=== PATIENT | female | born 1940 | race Caucasian/White ===

== ENCOUNTER 2017-03-24 09:34 | Inpatient (IN) | payer OTHER ==
--- NOTE | 2017-03-24 10:14 | PDOC ---
History of Present Illness - General Chief Complaint: Nausea/Vomiting Stated Complaint: VOMITING Past History - Past Medical History Allergies/Adverse Reactions: Allergies Allergy/AdvReac Type Severity Reaction Status Date / Time omeprazole magnesium AdvReac Intermediate Rash Verified 06/09/16 10:34 [From Prilosec] zinc AdvReac Unknown Rash Verified 03/24/17 09:47 Home Medications: Ambulatory Orders Furosemide [Lasix -] 40 mg PO BID 06/09/16 Naproxen [Naprosyn -] 500 mg PO BID 06/09/16 Simvastatin 20 mg PO DAILY 06/09/16 Acetaminophen W/ Codeine #3 [Tylenol # 3 -] 1 tab PO Q6H #120 tablet MDD 4 10/28 Silver Sulfadiazine [Silvadene] 1 applic TP DAILY 01/27/17 Anemia: No Asthma: No Cancer: Yes (COLON) Cardiac Disorders: No CVA: No COPD: No CHF: No Dementia: No Diabetes: No GI Disorders: No (H/O COLON CA) Disorders: No HTN: No Hypercholesterolemia: Yes Liver Disease: No Seizures: No Thyroid Disease: No - Surgical History Abdominal Surgery: Yes (COLECTOMY) Appendectomy: No Cardiac Surgery: No Cholecystectomy: Yes (06/01) Lung Surgery: No Neurologic Surgery: No Orthopedic Surgery: No - Psycho/Social/Smoking Cessation Hx Anxiety: No Suicidal Ideation: No Smoking History: Never smoked Have you smoked in the past 12 months: No Hx Alcohol Use: No Drug/Substance Use Hx: No Substance Use Type: None Hx Substance Use Treatment: No *Physical Exam - Vital Signs Last Vital Signs Temp Pulse Resp BP Pulse Ox 98.6 F 102 H 22 125/56 98 03/24/17 09:45 03/24/17 09:45 03/24/17 09:45 03/24/17 09:45 03/24/17 09:45
[2017-03-24] MEDS ORDERED: ONDANSETRON 4 MG/2 ML VIAL ONE ×2 (10:28→17:10)
[2017-03-24] MEDS ORDERED: ONDANSETRON 4 MG/2 ML VIAL IVPB ONE (10:31)
[2017-03-24 10:45] LABS: BASOPHIL 0.1 % (0-2.0); EOSINOPHIL 0.7 % (0-4.5); MCH 26.4 pg (25.7-33.7); MCHC 32.5 g/dl (32.0-36.0); MEAN CELL VOLUME 81.3 fl (80-96); MEAN PLT VOLUME 10.3 fl (7.5-11.1); NEUTROPHILS 93.2 % (42.8-82.8); PLATELET COUNT 158 K/MM3 (134-434); RDW 15.4 % (11.6-15.6)
--- NOTE | 2017-03-24 10:46 | PDOC ---
History of Present Illness - General History Source: Patient, Old Records Exam Limitations: No Limitations - History of Present Illness Initial Comments: 03/24/17 10:59 The patient is a 77 year old female with a significant past medical history of HLD, wound care, colon cancer. who presents to the emergency department today with nausea since last night. The patient notes that her primary medical doctor recently switched the times of day she takes her medications. The patient states that her nausea was worsened when taking an amulet to the hospital.The patient also reports associated constipation. Her last bowel movement was yesterday and she noticed some blood in her stool one week ago. Rapid response was called upon the patients arrival to the hospital at 9:31 after appearing pale, diaphoretic, and nauseous. On exam in ED patient complains of chills, shortness of breath, and foot pain burning in sensation. PCP: Dr. Healy [phone] PAST SURGICAL HISTORY: Cholecystectomy (06/01), Colectomy. <Dom Roberts - Last Filed: 03/24/17 15:11> <Bisi Steen - Last Filed: 03/24/17 18:26> - General Chief Complaint: Nausea/Vomiting Stated Complaint: VOMITING Past History <Dom Roberts - Last Filed: 03/24/17 15:11> - Past Medical History Anemia: No Asthma: No Cancer: Yes (COLON) Cardiac Disorders: No CVA: No COPD: No CHF: No Dementia: No Diabetes: No GI Disorders: No (H/O COLON CA) Disorders: No HTN: No Hypercholesterolemia: Yes Liver Disease: No Seizures: No Thyroid Disease: No - Surgical History Abdominal Surgery: Yes (COLECTOMY) Appendectomy: No Cardiac Surgery: No Cholecystectomy: Yes (06/01) Lung Surgery: No Neurologic Surgery: No Orthopedic Surgery: No - Psycho/Social/Smoking Cessation Hx Anxiety: No Suicidal Ideation: No Smoking History: Never smoked Have you smoked in the past 12 months: No Hx Alcohol Use: No Drug/Substance Use Hx: No Substance Use Type: None Hx Substance Use Treatment: No <Bisi Steen - Last Filed: 03/24/17 18:26> - Past Medical History Allergies/Adverse Reactions: Allergies Allergy/AdvReac Type Severity Reaction Status Date / Time omeprazole magnesium AdvReac Intermediate Rash Verified 06/09/16 10:34 [From Prilosec] zinc AdvReac Unknown Rash Verified 03/24/17 09:47 Home Medications: Ambulatory Orders Furosemide [Lasix -] 40 mg PO BID 06/09/16 Naproxen [Naprosyn -] 500 mg PO BID 06/09/16 Simvastatin 20 mg PO DAILY 06/09/16 Acetaminophen W/ Codeine #3 [Tylenol # 3 -] 1 tab PO Q6H #120 tablet MDD 4 10/28 Silver Sulfadiazine [Silvadene] 1 applic TP DAILY 01/27/17 Review of Systems - Review of Systems Able to Perform ROS?: Yes Comments:: 03/24/17 10:59 GENERAL/CONSTITUTIONAL: (+) Chills. No fever. No weakness. HEAD, EYES, EARS, NOSE AND THROAT: No change in vision. No ear pain or discharge. No sore throat. GASTROINTESTINAL: (+) Nausea, constipation. No vomiting, diarrhea. GENITOURINARY: No dysuria, frequency, or change in urination. CARDIOVASCULAR: (+) Shortness of breath. No chest pain. RESPIRATORY: No cough, wheezing, or hemoptysis. MUSCULOSKELETAL: (+) Foot pain. No neck or back pain. SKIN: No rash NEUROLOGIC: No headache, vertigo, loss of consciousness, or change in strength/ sensation. ENDOCRINE: No increased thirst. No abnormal weight change. HEMATOLOGIC/LYMPHATIC: No anemia, easy bleeding, or history of blood clots. ALLERGIC/IMMUNOLOGIC: No hives or skin allergy <Dom Roberts - Last Filed: 03/24/17 15:11> *Physical Exam - Vital Signs Last Vital Signs Temp Pulse Resp BP Pulse Ox 98.6 F 102 H 22 125/56 98 03/24/17 09:45 03/24/17 09:45 03/24/17 09:45 03/24/17 09:45 03/24/17 09:45 - Physical Exam Comments: 03/24/17 10:59 GENERAL: Awake, alert, mild pallor. HEAD: No signs of trauma EYES: PERRLA, EOMI, sclera anicteric, conjunctiva clear ENT: Auricles normal inspection, nares patent, Moist mucosa NECK: Normal ROM, supple, no lymphadenopathy, JVD, or masses LUNGS: Breath sounds equal, clear to auscultation bilaterally. No wheezes, and no crackles HEART: Regular rate and rhythm, normal S1 and S2, no murmurs, rubs or gallops ABDOMEN: (+) Soft, LLQ tenderness, normoactive bowel sounds. No guarding, no rebound. No masses BACK: (+) Kyphotic RECTAL: (+) Little stool at orpheus. No blood appreciated. No perianal wounds noted EXTREMITIES: (+) Normal range of motion, no edema. No clubbing or cyanosis. No cords, left foot erythema, ulcer on anterior aspect of right roldan 3 x 3 cm with pink base and light clear fluid draining. NEUROLOGICAL: Normal speech SKIN: (+) Diaphoretic, normal turgor, no rashes or lesions noted. <Dom Roberts - Last Filed: 03/24/17 15:11> - Vital Signs Last Vital Signs Temp Pulse Resp BP Pulse Ox 98.6 F 102 H 22 125/56 98 03/24/17 09:45 03/24/17 09:45 03/24/17 09:45 03/24/17 09:45 03/24/17 09:45 <Bisi Steen - Last Filed: 03/24/17 18:26> Heart Score/ECG Review - ECG Impressions Comment:: 03/24/17 11:13 EXAM#: TYPE/EXAM: RESULT: [id number] RAD/CHEST X-RAY PORTABLE* Reason for the study. Nausea. Evaluate for infection. Single portable chest x-ray. Comparison study June 09, 2016. Head was tilted toward the right side. The right apex obscured by the soft tissues of the neck, mandible. The heart is borderline enlarged. No evidence of vascular congestion. No airspace opacities are seen in the visualized lungs. No evidence of blunting of the costophrenic angles, effacement of the diaphragms. Demineralized osseous structures Impression. Right apex obscured by the soft tissues of the neck, mandible. No airspace opacities are seen in the visualized lungs. No pneumothorax or large pleural effusion is seen. Reported By: Jerel Ribera MD 03/24/17 1106 <Dom Roberts - Last Filed: 03/24/17 15:11> #1 General ECG Interpretation: Sinus Rhythm (sinus tachycardia 104 bpm), Normal Intervals, No acute ischemic changes - ECG Intrepretation Rhythm: Regular Rhythm <Bisi Steen - Last Filed: 03/24/17 18:26> ED Treatment Course - LABORATORY CBC & Chemistry Diagram: 03/24/17 10:27 03/24/17 10:27 - ADDITIONAL ORDERS Additional order review: Laboratory Results 03/24/17 10:22 POC Glucometer 91.10568 03/24/17 10:22 POC Glucometer 91.99392 - RADIOLOGY Radiograph Interpretation: 03/24/17 15:11 EXAM#: TYPE/EXAM: RESULT: [id number] CT/ABDOMEN PELVIS CT WITH CONTR CT abdomen and pelvis with intravenous contrast Left lower quadrant pain-evaluation for diverticulitis Oral contrast was administered Comparison studies: None Axial imaging completed after bolus injection 92 cc Omnipaque 350 with a power injector, patient with history of colon cancer Normal images through the lung bases with a nodular lesion in the right lower lobe measuring 0.6 cm on image # 8. Recommend patient have follow-up CT chest in view of the history of colon cancer to exclude the possibility of metastatic disease to the lungs. No pleural effusion is seen. Review of the bone windows demonstrates degenerative change in the hips with compression deformity involving the L3 vertebral body superior endplate possibly from a Schmorl's node. No spondylolisthesis. Degenerative changes in the hips, no discrete destructive bone lesion is seen. Normal enhancement of the spleen and liver with cholecystectomy clips noted no signs of metastatic disease to the liver with normal enhancement of the portal and hepatic veins and normal region of pancreas with no dilation pancreatic duct No adrenal nodules are seen with normal enhancement of both kidneys. Nephrolithiasis versus vascular calcifications in the right kidney may be present, patient symptomatic on the left side. The bowel is normally opacified The urinary bladder is midline There is a hernia from the left lower anterior abdominal wall, there is a ventral hernia with a wide neck measuring up to 4 cm containing opacified bowel loops with no signs of incarceration. No edema within the vessels supplying the region and no edema within the hernia sac, no bowel wall thickening in the region is seen, surgical evaluation suggested to assess for reducibility of the hernia Atherosclerotic changes of the aorta with no aneurysm and no enlarged para-aortic or retroperitoneal adenopathy there are no signs of diverticulitis or bowel obstruction. Small reactive inguinal nodes are seen The uterus and region of adnexa otherwise intact IMPRESSION: CT imaging completed with no signs of diverticulitis. There is a left lower anterior abdominal wall ventral hernia with a wide neck containing loops of opacified small and large bowel with no signs of obstruction or strangulation, no definite signs of incarceration identified, surgical assessment for evaluation to assess for reducibility of the hernia. The hernia sac measures at least 5 x 6 x 4 cm. Reported By: Martín Lu MD 03/24/17 1507 03/24/17 15:11 EXAM#: TYPE/EXAM: RESULT: [id number] RAD/CHEST X-RAY PORTABLE* Reason for the study. Nausea. Evaluate for infection. Single portable chest x-ray. Comparison study June 09, 2016. Head was tilted toward the right side. The right apex obscured by the soft tissues of the neck, mandible. The heart is borderline enlarged. No evidence of vascular congestion. No airspace opacities are seen in the visualized lungs. No evidence of blunting of the costophrenic angles, effacement of the diaphragms. Demineralized osseous structures Impression. Right apex obscured by the soft tissues of the neck, mandible. No airspace opacities are seen in the visualized lungs. No pneumothorax or large pleural effusion is seen. Reported By: Jerel Ribera MD 03/24/17 1106 - Medications Given in the ED: ED Medications Discontinued Medications Generic Name Dose Route Start Last Admin Trade Name Freq PRN Reason Stop Dose Admin Ondansetron HCl 4 mg 03/24/17 10:31 03/24/17 10:30 Zofran Injection IVPB 03/24/17 10:32 4 mg ONCE ONE Administration <Dom Roberts - Last Filed: 03/24/17 15:11> - LABORATORY CBC & Chemistry Diagram: 03/24/17 10:27 03/24/17 10:27 - RADIOLOGY Radiology Studies Ordered: Category Date Time Status CHEST X-RAY PORTABLE* [RAD] Stat Radiology 03/24/17 10:13 Ordered <Bisi Steen - Last Filed: 03/24/17 18:26> Medical Decision Making - Medical Decision Making 03/24/17 10:35 77 yo F with HO HLD , chronic lower wounds and colon CA ( s/p colectomy), here wtih c/o feeling nauseas since last pm. took naproxen, tylenol #3 in evening which she normally takes in am, and has felt nauseas since. has been having constipation x month. last BM was yesterday. nonbloody. did have a stool one week ago wtih some streaks of blood . no f/c today was on way to wound care doctor and noted to be pale, diaphoretic and nauseas in the lobby. a rapid response was called at 9:30, and pt sent to ED to be evaluated. no f/c no chest pain no sob. no light headed ness. denies vertigo. only c/o feeling nausea, burning in her feet ( chronic). on exam awake alert mild pallor, lungs clear , heart reg, llq ttp, no rebound no guard. skin warm and dry. lower ext wwp, bilat feet erythema. right leg wound anterior roldan, pink base, mild clear drainage from wound. pulses faint bilat dp. plan : r/o anemia, gi bleed, mi, uti electrolyte abnormality, other infection such as pna, diverticulitis. plan ct abd/ pelv, ua labs culture guiac stool antiemetics. ekg trop . <Bisi Steen - Last Filed: 03/24/17 18:26> *DC/Admit/Observation/Transfer - Attestations Scribe Attestion: 03/24/17 10:59 Documentation prepared by Dom Roberts, acting as medical billing representative for Bisi Steen MD. <Dom Roberts - Last Filed: 03/24/17 15:11> - Discharge Dispostion Admit: Yes <Bisi Steen - Last Filed: 03/24/17 18:26> Diagnosis at time of Disposition: Urinary tract infection - Referrals Referrals: Jorje Healy MD [Primary Care Provider] -
[2017-03-24] MEDS ORDERED: SODIUM CHLORIDE 0.9% 1000 ML INFUS.BAG IV ONE (10:57)
[2017-03-24 11:00] VITALS: BMI 28.9
[2017-03-24 11:13] LABS: ALBUMIN 3.4 g/dl (3.4-5.0); ANION GAP 7 (8-16); BILIRUBIN,TOTAL 0.9 mg/dL (0.2-1.0); CALCIUM 9.8 mg/dL (8.5-10.1); CO2 32 mmol/L (21-32); CREATININE 0.7 mg/dL (0.55-1.02); GLUCOSE,RANDOM 88 mg/dL (74-106); SGOT/AST 18 U/L (15-37); SGPT/ALT 17 U/L (12-78); TOT PROT 6.9 g/dl (6.4-8.2)
[2017-03-24 11:14] LABS: ALK PHOS 85 U/L (45-117)
[2017-03-24 11:16] LABS: TROPONIN I < 0.02 ng/ml (0.00-0.05)
[2017-03-24] MEDS ORDERED: ACETAMINOPHEN INJECTION 100 ML IVPB ONE (12:12)
[2017-03-24 12:19] LABS: URINE APPEARANCE CLEAR; URINE BILIRUBIN NEGATIVE (NEGATIVE); URINE COLOR LTYELLOW; URINE GLUCOSE (UA) NEGATIVE (NEGATIVE); URINE KETONE TRACE (NEGATIVE); URINE NITRITE NEGATIVE (NEGATIVE); URINE UROBILINOGEN NEGATIVE E.U./dl (0.2-1.0)
[2017-03-24] MEDS ORDERED: ACETAMINOPHEN 1000 MG/100 ML VIAL (NON FORMULARY) IVPB ONE (12:21)
[2017-03-24 12:51] LABS: URINE BLOOD 2+ (NEGATIVE); URINE LEUK ESTERASE 2+ (NEGATIVE); URINE PROTEIN 1+ (NEGATIVE)
[2017-03-24 13:12] LABS: URINE BACTERIA RARE /hpf (NONE SEEN); URINE MUCUS RARE; URINE RBC 10 /hpf (0-3); URINE WBC 114 /hpf (3-5); YEAST FEW
[2017-03-24] MEDS ORDERED: CEFTRIAXONE 1 GM in DEXTROSE 5%-WATER - 50 ML IVPB ONE (13:55)
[2017-03-24] MEDS ORDERED: CEFTRIAXONE 50 ML ONE (14:07)
--- NOTE | 2017-03-24 15:36 | HP ---
CHIEF COMPLAINT: PCP: Dr Healy HISTORY OF PRESENT ILLNESS: The patient is a 77 year old female with a significant past medical history of Lymphedema in b/l lower ext, HLD, OA, colon CA s/p resection in remission, who BIBEMS to ER instead of her scheduled wound care f/u because she felt very ill during the ride. Patient states that she becomes nauseous on a daily basis due to her consti;pation and is relieved by a BM. She states that todays episode in ambulance was exacerbated by motion sickness from a bumpy ride. She reports transient abdominal discomfort that since resolved and one episode on NBNB vomiting. her last BM was a day ago and was small, nonbloody and nonmelenous. She has once had blood streaked stool in the past associated with severe straining. She has been more constipated that usual lately. She is experiencing chronic b/l LE edema and pain from her heels, up her legs and radiating to b/l flanks. It is slightly worse now because she was moved from bed to bed in ER. She denies dysuria, urgency, incontinence, frequency, f/c or hematuria. She states her urine has been a little foamy for 1 w. She denies chest pain, sob, cough, h/a, loc, palpitations, abd pain, diarrhea, focal numbness, weakness. RR was called when patient arrived in ED due to n/v, tachycardia, pale color and weakness. Initial workup was unremarkable other than mild tachycardia. Patient was given zofran, IVF and morphine and has since felt better. ER course was notable for: (1)labs (2)ekg: unremarkable (3)CT abd: possinle proximal nephrolithiasis w/u ureter dilitation, nonencarcerated incisional hernia. (4) Rocephin, morphine, zofran, IVF Recent Travel: denies PAST MEDICAL HISTORY:as above PAST SURGICAL HISTORY:partial Colectomy, Cholecystectomy, Varicose Vein Surgery 2014 Social History:lives alone and has a home health aid for 4 hours per day Smoking: denies Alcohol:denies Drugs: denies Family History: mother father CAD Allergies omeprazole magnesium [From Prilosec] Adverse Reaction (Intermediate, Verified 10:34) Rash zinc Adverse Reaction (Unknown, Verified 03/24/17 09:47) Rash HOME MEDICATIONS: Home Medications Medication Instructions Recorded Furosemide [Lasix -] 40 mg PO BID 06/09/16 Naproxen [Naprosyn -] 500 mg PO BID 06/09/16 Simvastatin 20 mg PO DAILY 06/09/16 Acetaminophen W/ Codeine #3 1 tab PO Q6H #120 tablet MDD 4 10/28/16 [Tylenol # 3 -] Silver Sulfadiazine [Silvadene] 1 applic TP DAILY 01/27/17 REVIEW OF SYSTEMS CONSTITUTIONAL: Absent: fever, chills HEENT: Absent: rhinorrhea, nasal congestion, throat pain, difficulty swallowing CARDIOVASCULAR: Absent: chest pain, syncope, palpitations, irregular heart rate, lightheadedness RESPIRATORY: Absent: cough, shortness of breath, hemoptysis GASTROINTESTINAL: Absent: abdominal pain, abdominal distension, diarrhea, melena GENITOURINARY: Absent: dysuria, frequency, urgency, hesitancy, hematuria, flank pain, genital pain MUSCULOSKELETAL: Absent: neck pain, back pain SKIN: Absent: rash, itching, pallor HEMATOLOGIC/IMMUNOLOGIC: Absent: frequent infections ENDOCRINE: Absent: unexplained weight gain, unexplained weight loss NEUROLOGIC: Absent: headache, focal weakness or paresthesias PSYCHIATRIC: Absent: anxiety, depression PHYSICAL EXAMINATION Vital Signs - 24 hr 03/24/17 03/24/17 03/24/17 09:45 13:10 13:52 Temperature 98.6 F Pulse Rate 102 H Pulse Rate [ 105 H Radial] Respiratory 22 24 Rate Blood Pressure 125/56 Blood Pressure 100/49 [Left Arm] O2 Sat by Pulse 98 95 95 Oximetry (%) GENERAL: Awake, alert, and fully oriented, in no acute distress. HEAD: Normal with no signs of trauma. EYES: Pupils equal, round and reactive to light, extraocular movements intact, sclera anicteric, conjunctiva clear. No lid lag. EARS, NOSE, THROAT: Moist mucous membranes. NECK: supple without lymphadenopathy, JVD, or masses. LUNGS: Breath sounds equal, clear to auscultation bilaterally. HEART: Regular rate and rhythm, normal S1 and S2 without murmur ABDOMEN: Soft, nontender, not distended, normoactive bowel sounds, no guarding, no rebound, no masses. No hepatomegaly or splenomegaly. MUSCULOSKELETAL: No CVA tenderness. UPPER EXTREMITIES: 2+ pulses, warm, well-perfused. No cyanosis. No clubbing. No peripheral edema. LOWER EXTREMITIES: 1+ pulses, warm, well-perfused. extremely tender b/l LE, severe b/l LE edema up to hip, blanching erythema at ankles up to mid calf b/l some crusted over lesions w/o exudate or purulence. NEUROLOGICAL: Cranial nerves II-XII grossly intact. Normal speech. PSYCHIATRIC: Cooperative. Good eye contact. Appropriate mood and affect. SKIN: Warm, dry, lesions as above Laboratory Results - last 24 hr 03/24/17 03/24/17 03/24/17 10:22 10:27 10:27 WBC 19.0 H D RBC 4.60 Hgb 12.2 Hct 37.4 MCV 81.3 MCHC 32.5 RDW 15.4 Plt Count 158 MPV 10.3 Neutrophils % 93.2 H D Lymphocytes % 1.7 L D Monocytes % 4.3 Eosinophils % 0.7 D Basophils % 0.1 Sodium 140 Potassium 4.2 Chloride 101 Carbon Dioxide 32 Anion Gap 7 L BUN 26 H D Creatinine 0.7 Creat Clearance w eGFR > 60 POC Glucometer 91.79116 Random Glucose 88 Lactic Acid Calcium 9.8 Total Bilirubin 0.9 D AST 18 ALT 17 D Alkaline Phosphatase 85 Creatine Kinase Troponin I Total Protein 6.9 Albumin 3.4 Lipase 85 Urine Color Urine Appearance Urine pH Urine Protein Urine Glucose (UA) Urine Ketones Urine Blood Urine Nitrite Urine Bilirubin Urine Urobilinogen Ur Leukocyte Esterase Urine RBC Urine WBC Ur Epithelial Cells Urine Bacteria Urine Mucus Urine Yeast Stool Occult Blood Blood Type Antibody Screen 03/24/17 03/24/17 03/24/17 10:27 10:27 11:05 WBC RBC Hgb Hct MCV MCHC RDW Plt Count MPV Neutrophils % Lymphocytes % Monocytes % Eosinophils % Basophils % Sodium Potassium Chloride Carbon Dioxide Anion Gap BUN Creatinine Creat Clearance w eGFR POC Glucometer Random Glucose Lactic Acid Calcium Total Bilirubin AST ALT Alkaline Phosphatase Creatine Kinase 30 Troponin I < 0.02 Total Protein Albumin Lipase Urine Color Urine Appearance Urine pH Urine Protein Urine Glucose (UA) Urine Ketones Urine Blood Urine Nitrite Urine Bilirubin Urine Urobilinogen Ur Leukocyte Esterase Urine RBC Urine WBC Ur Epithelial Cells Urine Bacteria Urine Mucus Urine Yeast Stool Occult Blood Negative Blood Type O POSITIVE Antibody Screen Negative 03/24/17 03/24/17 12:10 13:09 WBC RBC Hgb Hct MCV MCHC RDW Plt Count MPV Neutrophils % Lymphocytes % Monocytes % Eosinophils % Basophils % Sodium Potassium Chloride Carbon Dioxide Anion Gap BUN Creatinine Creat Clearance w eGFR POC Glucometer Random Glucose Lactic Acid 1.6 Calcium Total Bilirubin AST ALT Alkaline Phosphatase Creatine Kinase Troponin I Total Protein Albumin Lipase Urine Color Ltyellow Urine Appearance Clear Urine pH 7.0 D Urine Protein 1+ H Urine Glucose (UA) Negative Urine Ketones Trace H Urine Blood 2+ H Urine Nitrite Negative Urine Bilirubin Negative Urine Urobilinogen Negative Ur Leukocyte Esterase 2+ H D Urine RBC 10 Urine WBC 114 Ur Epithelial Cells Rare Urine Bacteria Rare Urine Mucus Rare Urine Yeast Few Stool Occult Blood Blood Type Antibody Screen ASSESSMENT/PLAN: The patient is a 77 year old female with a significant past medical history of Lymphedema in b/l lower ext, HLD, OA, colon CA s/p resection in remission, who BIBEMS to ER instead of her scheduled wound care f/u because she felt very ill during the ride. nausea/vomiting -CT abd unremarkable for acute intraabdominal process. Impacted colon -Lytes stable -likely due to constipation and motion sickness -zofran PRN Leukocytosis with left shift -WBC 19 -transiently met SIRS criteria while was slightly tachycardic; tachycardia was likley due to nausea and has since resolved -afebrile, hemodynamically stable -UA significant for 2+ blood, 2+ leuk est, rate bacteria; not strongly indicative of UTI in absence of symptoms; -rocephin given in ER, blood/urine cultures collected ; will repeat UA and U culture, will repeat labs tomorrow AM and make a decision about possible continuation of abx treatment -CT abd/pelvis shows a possible R proximal nonobstructing nephrolithiasis, may be early ureterolitiasis and cause of UA and CBC findings -IV hydration LE lymphedema -appears at baseline, no cellulitis -Dr Paniagua consult -Morphine for pain -restart daily pain regimen. -silvadene cream HTN -lasix 40 bid HLD -lipitor 20 HS Constipation -miralax FEN NS @ 75 lytes stable Na restricted diet Hep, diet Dispo: Obs med ailyn. Problem List - Problem (1) Colon cancer Code(s): C18.9 - MALIGNANT NEOPLASM OF COLON, UNSPECIFIED (2) Hyperlipidemia Code(s): E78.5 - HYPERLIPIDEMIA, UNSPECIFIED (3) Chronic lower back pain Code(s): M54.5 - LOW BACK PAIN G89.29 - OTHER CHRONIC PAIN Qualifiers: Back pain laterality: left Sciatica presence: without sciatica Qualified Code(s): M54.5 - Low back pain; G89.29 - Other chronic pain (4) Leg pain, bilateral Code(s): M79.604 - PAIN IN RIGHT LEG M79.605 - PAIN IN LEFT LEG (5) Pain Code(s): R52 - PAIN, UNSPECIFIED (6) Lymphedema of left lower extremity Code(s): I89.0 - LYMPHEDEMA, NOT ELSEWHERE CLASSIFIED (7) Lymphedema of right lower extremity Code(s): I89.0 - LYMPHEDEMA, NOT ELSEWHERE CLASSIFIED (8) Nephrolithiasis Code(s): N20.0 - CALCULUS OF KIDNEY (9) Leukocytosis, unspecified Code(s): D72.829 - ELEVATED WHITE BLOOD CELL COUNT, UNSPECIFIED (10) HTN (hypertension) Code(s): I10 - ESSENTIAL (PRIMARY) HYPERTENSION Visit type - Emergency Visit Emergency Visit: Yes Care time: The patient presented to the Emergency Department on the above date and was hospitalized for further evaluation of their emergent condition. - New Patient This patient is new to me today: Yes Date on this admission: 03/24/17 - Critical Care Critical Care patient: No
--- NOTE | 2017-03-24 15:46 | EKG ---
Test Reason : Blood Pressure : / mmHG Vent. Rate : 104 BPM Atrial Rate : 104 BPM P-R Int : 156 ms QRS Dur : 076 ms QT Int : 330 ms P-R-T Axes : 077 025 047 degrees QTc Int : 433 ms SINUS TACHYCARDIA WHEN COMPARED WITH ECG OF 11-APR-2016 18:22, NO SIGNIFICANT CHANGE WAS FOUND Confirmed by WILMER MILAN MD ([id number]) on 03/24/2017 3:46:01 PM Referred By: Confirmed By:WILMER MILAN MD
[2017-03-24] MEDS ORDERED: ONDANSETRON 4 MG/2 ML VIAL IVPB PRN (16:12)
[2017-03-24] MEDS ORDERED: morphine CARPU-JECT 2 MG/1 ML DISP.SYRIN IVPUSH PRN (16:12)
[2017-03-24] MEDS ORDERED: SODIUM CHLORIDE 1,000 ML IV SCH ×3 (16:15→16:49)
[2017-03-24] MEDS ORDERED: morphine CARPU-JECT 4 MG/1 ML DISP.SYRIN ONE (17:09)
[2017-03-24] MEDS ORDERED: FUROSEMIDE 40 MG TABLET (FP) ONE (17:10)
[2017-03-24] MEDS: FUROSEMIDE 40 MG TABLET (FP) PO SCH (17:31)
[2017-03-24] MEDS: ACETAMINOPHEN WITH CODEINE 300MG/30MG TABLET PO SCH ×2 (21:58→22:09)
[2017-03-24] MEDS ORDERED: ATORVASTATIN CA 20 MG TABLET (FP) PO SCH (22:00)
[2017-03-24] MEDS: POLYETHYLENE GLYCOL 3350 119 GM BTL PO SCH (22:11)
[2017-03-24] MEDS: HEPARIN NA (PORCINE) 5,000 UNITS/ML 1ML VIAL SQ SCH (22:11)
[2017-03-24] MEDS: NAPROXEN 500 MG TABLET (FP) PO SCH (23:11)
[2017-03-25] MEDS: FUROSEMIDE 40 MG TABLET (FP) PO SCH ×2 (05:46→14:22)
[2017-03-25] MEDS: ACETAMINOPHEN WITH CODEINE 300MG/30MG TABLET PO SCH ×2 (05:47→10:35)
[2017-03-25 07:38] LABS: BASOPHIL 0.3 % (0-2.0); EOSINOPHIL 0.2 % (0-4.5); MCH 26.6 pg (25.7-33.7); MCHC 32.7 g/dl (32.0-36.0); MEAN CELL VOLUME 81.5 fl (80-96); MEAN PLT VOLUME 10.4 fl (7.5-11.1); NEUTROPHILS 92.3 % (42.8-82.8); PLATELET COUNT 128 K/MM3 (134-434); RDW 15.7 % (11.6-15.6)
[2017-03-25 07:56] LABS: ALBUMIN 2.4 g/dl (3.4-5.0); ALK PHOS 73 U/L (45-117); ANION GAP 9 (8-16); BILIRUBIN,TOTAL 0.7 mg/dL (0.2-1.0); CALCIUM 8.5 mg/dL (8.5-10.1); CO2 29 mmol/L (21-32); CREATININE 0.6 mg/dL (0.55-1.02); GLUCOSE,RANDOM 76 mg/dL (74-106); PHOSPHOROUS 2.4 mg/dL (2.5-4.9); SGOT/AST 148 U/L (15-37); SGPT/ALT 137 U/L (12-78); TOT PROT 5.4 g/dl (6.4-8.2)
[2017-03-25] MEDS ORDERED: PT OWN MED DRAWER 7, Y5N ONE (09:38)
[2017-03-25] MEDS: POLYETHYLENE GLYCOL 3350 119 GM BTL PO SCH (09:44)
[2017-03-25] MEDS: NAPROXEN 500 MG TABLET (FP) PO SCH (09:44)
[2017-03-25] MEDS: SILVER SULFADIAZINE 1% TOP CREAM 50 GM JAR TP SCH (09:45)
[2017-03-25] MEDS: HEPARIN NA (PORCINE) 5,000 UNITS/ML 1ML VIAL SQ SCH ×2 (09:48→21:57)
[2017-03-25 10:08] LABS: URINE APPEARANCE SLCLOUDY; URINE BILIRUBIN NEGATIVE (NEGATIVE); URINE COLOR LTYELLOW; URINE GLUCOSE (UA) NEGATIVE (NEGATIVE); URINE KETONE NEGATIVE (NEGATIVE); URINE NITRITE NEGATIVE (NEGATIVE); URINE PROTEIN NEGATIVE (NEGATIVE); URINE UROBILINOGEN NEGATIVE E.U./dl (0.2-1.0)
[2017-03-25 10:27] LABS: URINE BLOOD 1+ (NEGATIVE); URINE LEUK ESTERASE 3+ (NEGATIVE)
[2017-03-25 10:33] LABS: URINE MUCUS RARE; URINE RBC 4 /hpf (0-3); URINE WBC 181 /hpf (3-5)
--- NOTE | 2017-03-25 11:33 | PN ---
Physical Exam: SUBJECTIVE: Patient seen and examined Patient is feeling well today with no acute distress, no fever or chills, no shortness of breath. OBJECTIVE: Vital Signs Temperature 98.2 F 03/25/17 10:00 Pulse Rate 85 03/25/17 10:00 Respiratory Rate 18 03/25/17 10:00 Blood Pressure 113/59 03/25/17 10:00 O2 Sat by Pulse Oximetry (%) 96 03/24/17 23:06 GENERAL: The patient is awake, alert, and fully oriented, in no acute distress. HEAD: Normal with no signs of trauma. EYES: PERRL, extraocular movements intact, sclera anicteric, conjunctiva clear. ENT: Ears normal, oropharynx clear without exudates, moist mucous membranes. NECK: Trachea midline, full range of motion, supple. LUNGS: Breath sounds equal, clear to auscultation bilaterally, no wheezes, no crackles, no accessory muscle use. HEART: Regular rate and rhythm, S1, S2 positive, no rub or gallop. ABDOMEN: Soft, nontender, nondistended, normoactive bowel sounds, no guarding, no rebound, no hepatosplenomegaly, no masses. EXTREMITIES: 2+ pulses, warm, well-perfused, bl non pitting edema L>R, also positive for redness of left lower extremity, warm to touch. NEUROLOGICAL: Cranial nerves II through XII grossly intact. Normal speech, gait not observed. PSYCH: Normal mood, normal affect. SKIN: Warm, dry, normal turgor, no rashes or lesions noted Current Medications Generic Name Dose Route Start Last Admin Trade Name Freq PRN Reason Stop Dose Admin Acetaminophen/Codeine Phosphate 1 tab 03/24/17 17:00 03/25/17 10:35 Tylenol # 3 - PO 1 tab Q6H RAMAN Administration Atorvastatin Calcium 20 mg 03/24/17 22:00 03/24/17 22:12 Lipitor - PO 20 mg HS RAMAN Administration Furosemide 40 mg 03/24/17 17:00 03/25/17 05:46 Lasix - PO 40 mg BIDLASIX RAMAN Administration Heparin Sodium (Porcine) 5,000 unit 03/24/17 22:00 03/25/17 09:48 Heparin - SQ 5,000 unit BID RAMAN Administration Sodium Chloride 1,000 mls @ 75 mls/hr 03/24/17 16:49 03/24/17 18:16 Normal Saline - IV 03/25/17 16:18 75 mls/hr ASDIR RAMAN Administration Morphine Sulfate 4 mg 03/24/17 16:12 03/24/17 17:25 Morphine Injection - IVPUSH 4 mg Q4H PRN Administration PAIN Naproxen 500 mg 03/24/17 22:00 03/25/17 09:44 Naprosyn - PO 500 mg BID RAMAN Administration Ondansetron HCl 4 mg 03/24/17 16:12 03/24/17 17:31 Zofran Injection IVPB 4 mg Q4H PRN Administration NAUSEA Polyethylene Glycol 17 gm 03/24/17 17:00 03/25/17 09:44 Miralax (For Daily Use) - PO 17 gm DAILY RAMAN Administration Silver Sulfadiazine 1 applic 03/25/17 10:00 03/25/17 09:45 Silvadene - TP 1 applic DAILY RAMAN Administration Home Medications Medication Instructions Recorded Furosemide [Lasix -] 40 mg PO BID 06/09/16 Naproxen [Naprosyn -] 500 mg PO BID 06/09/16 Simvastatin 20 mg PO DAILY 06/09/16 Acetaminophen W/ Codeine #3 1 tab PO Q6H #120 tablet MDD 4 10/28/16 [Tylenol # 3 -] Silver Sulfadiazine [Silvadene] 1 applic TP DAILY 01/27/17 CBCD WBC 13.0 K/mm3 (4.0-10.0) H D 03/25/17 06:30 RBC 4.11 M/mm3 (3.60-5.2) 03/25/17 06:30 Hgb 10.9 GM/dL (10.7-15.3) D 03/25/17 06:30 Hct 33.5 % (32.4-45.2) 03/25/17 06:30 MCV 81.5 fl (80-96) 03/25/17 06:30 MCHC 32.7 g/dl (32.0-36.0) 03/25/17 06:30 RDW 15.7 % (11.6-15.6) H 03/25/17 06:30 Plt Count 128 K/MM3 (134-434) L 03/25/17 06:30 MPV 10.4 fl (7.5-11.1) 03/25/17 06:30 CMP Sodium 140 mmol/L (136-145) 03/25/17 06:30 Potassium 3.8 mmol/L (3.5-5.1) 03/25/17 06:30 Chloride 102 mmol/L (98-107) 03/25/17 06:30 Carbon Dioxide 29 mmol/L (21-32) 03/25/17 06:30 Anion Gap 9 (8-16) 03/25/17 06:30 BUN 18 mg/dL (7-18) D 03/25/17 06:30 Creatinine 0.6 mg/dL (0.55-1.02) 03/25/17 06:30 Creat Clearance w eGFR > 60 (>60) 03/25/17 06:30 Random Glucose 76 mg/dL (74-106) 03/25/17 06:30 Calcium 8.5 mg/dL (8.5-10.1) 03/25/17 06:30 Total Bilirubin 0.7 mg/dL (0.2-1.0) D 03/25/17 06:30 AST 148 U/L (15-37) H D 03/25/17 06:30 ALT 137 U/L (12-78) H D 03/25/17 06:30 Alkaline Phosphatase 73 U/L (45-117) 03/25/17 06:30 Total Protein 5.4 g/dl (6.4-8.2) L D 03/25/17 06:30 Albumin 2.4 g/dl (3.4-5.0) L D 03/25/17 06:30 CARDIAC ENZYMES Creatine Kinase 30 IU/L (26-192) 03/24/17 10:27 Troponin I < 0.02 ng/ml (0.00-0.05) 03/24/17 10:27 Hepatic Panel Total Bilirubin 0.7 mg/dL (0.2-1.0) D 03/25/17 06:30 AST 148 U/L (15-37) H D 03/25/17 06:30 ALT 137 U/L (12-78) H D 03/25/17 06:30 Alkaline Phosphatase 73 U/L (45-117) 03/25/17 06:30 Albumin 2.4 g/dl (3.4-5.0) L D 03/25/17 06:30 Microbiology 03/24/17 12:10 Urine - Urine - Catheterized Urine Culture - Preliminary Non Lactose Fermenting Gnb Urine Test Results Urine Color Ltyellow 03/25/17 07:00 Urine Appearance Slcloudy 03/25/17 07:00 Urine pH 6.0 (5.0-8.0) 03/25/17 07:00 Ur Specific Spencer 1.015 (1.005-1.025) 03/25/17 07:00 Urine Protein Negative (NEGATIVE) 03/25/17 07:00 Urine Glucose (UA) Negative (NEGATIVE) 03/25/17 07:00 Urine Ketones Negative (NEGATIVE) 03/25/17 07:00 Urine Blood 1+ (NEGATIVE) H 03/25/17 07:00 Urine Nitrite Negative (NEGATIVE) 03/25/17 07:00 Urine Bilirubin Negative (NEGATIVE) 03/25/17 07:00 Ur Leukocyte Esterase 3+ (NEGATIVE) H 03/25/17 07:00 Urine RBC 4 /hpf (0-3) 03/25/17 07:00 Urine WBC 181 /hpf (3-5) 03/25/17 07:00 Ur Epithelial Cells Rare /hpf (FEW) 03/25/17 07:00 Urine Bacteria Rare /hpf (NONE SEEN) 03/24/17 12:10 Urine Mucus Rare 03/25/17 07:00 ASSESSMENT/PLAN: The patient is a 77 year old female with a significant past medical history of Lymphedema in b/l lower ext, HLD, OA, colon CA s/p resection in remission, who BIBEMS to ER instead of her scheduled wound care f/u because she felt very ill during the ride. # Acute UTI , IV Levaquin, IVF x 1 liter # Acute Leukocytosis with left shift due to UTI and Left lower extremity cellulitis ,WBC 19--> 13 trending down # Acute elevated transaminitis will monitor, will hold Lipitor, Tylenol, Not give Rocephin at this time received one dose in ED. # Bl LE lymphedema with left LE cellulitis, IV Ancef started , ID consult Dr.Berky Dr Paniagua consult , Morphine for pain, silvadene cream #HTN on lasix 40 bid #HLD. will hold lipitor since elevated LFts #Constipation continue miralax DVT Px: Heparin Visit type - Emergency Visit Emergency Visit: Yes ED Registration Date: 03/24/17 Care time: The patient presented to the Emergency Department on the above date and was hospitalized for further evaluation of their emergent condition. - New Patient This patient is new to me today: Yes Date on this admission: 03/25/17 - Critical Care Critical Care patient: No
[2017-03-25] MEDS ORDERED: CEFAZOLIN (PRE-DOCKED) 50 ML IVPB SCH (14:30)
[2017-03-25] MEDS: LEVOFLOXACIN 250 MG IVPB 50 ML IVPB SCH (14:47)
[2017-03-25] MEDS: CEFAZOLIN (PRE-DOCKED) 50 ML IVPB SCH (17:13)
[2017-03-26] MEDS ORDERED: traMADol HCL 50 MG TABLET PO ONE (01:03)
[2017-03-26] MEDS: CEFAZOLIN (PRE-DOCKED) 50 ML IVPB SCH ×3 (01:25→17:37)
[2017-03-26] MEDS: FUROSEMIDE 40 MG TABLET (FP) PO SCH ×2 (06:01→14:24)
[2017-03-26 07:15] LABS: BASOPHIL 0.5 % (0-2.0); EOSINOPHIL 4.5 % (0-4.5); MCH 26.7 pg (25.7-33.7); MCHC 33.1 g/dl (32.0-36.0); MEAN CELL VOLUME 80.7 fl (80-96); MEAN PLT VOLUME 10.1 fl (7.5-11.1); NEUTROPHILS 76.4 % (42.8-82.8); PLATELET COUNT 125 K/MM3 (134-434); RDW 15.3 % (11.6-15.6); WHITE BLOOD COUNT 7.3 K/mm3 (4.0-10.0)
[2017-03-26 07:56] LABS: ALBUMIN 2.3 g/dl (3.4-5.0); ALK PHOS 79 U/L (45-117); ANION GAP 6 (8-16); BILIRUBIN,TOTAL 0.4 mg/dL (0.2-1.0); CALCIUM 8.6 mg/dL (8.5-10.1); CO2 33 mmol/L (21-32); CREATININE 0.6 mg/dL (0.55-1.02); GLUCOSE,RANDOM 78 mg/dL (74-106); SGOT/AST 109 U/L (15-37); SGPT/ALT 135 U/L (12-78); TOT PROT 5.4 g/dl (6.4-8.2)
[2017-03-26] MEDS ORDERED: PT OWN MED DRAWER 7, Y5N ONE (09:55)
[2017-03-26] MEDS: HEPARIN NA (PORCINE) 5,000 UNITS/ML 1ML VIAL SQ SCH ×2 (10:43→21:30)
[2017-03-26] MEDS: POLYETHYLENE GLYCOL 3350 119 GM BTL PO SCH (10:45)
[2017-03-26] MEDS: LEVOFLOXACIN 250 MG IVPB 50 ML IVPB SCH (11:15)
[2017-03-26] MEDS: SILVER SULFADIAZINE 1% TOP CREAM 50 GM JAR TP SCH (14:24)
--- NOTE | 2017-03-26 20:30 | PN ---
Progress Note (short form) - Note Progress Note: Patient is doing better, redness of LE improving. Temperature 98.1 F 03/26/17 18:00 Pulse Rate 76 03/26/17 18:00 Respiratory Rate 20 03/26/17 18:00 Blood Pressure 130/68 03/26/17 18:00 O2 Sat by Pulse Oximetry (%) 95 03/25/17 09:00 GENERAL: The patient is awake, alert, and fully oriented, in no acute distress. HEAD: Normal with no signs of trauma. EYES: PERRL, extraocular movements intact, sclera anicteric, conjunctiva clear. ENT: Ears normal, oropharynx clear without exudates, moist mucous membranes. NECK: Trachea midline, full range of motion, supple. LUNGS: Breath sounds equal, clear to auscultation bilaterally, no wheezes, no crackles, no accessory muscle use. HEART: Regular rate and rhythm, S1, S2 positive, no rub or gallop. ABDOMEN: Soft, nontender, nondistended, normoactive bowel sounds, no guarding, no rebound, no hepatosplenomegaly, no masses. EXTREMITIES: 2+ pulses, warm, well-perfused, bl non pitting edema L>R, also positive for redness of left lower extremity, warm to touch. NEUROLOGICAL: Cranial nerves II through XII grossly intact. Normal speech, gait not observed. PSYCH: Normal mood, normal affect. SKIN: Warm, dry, normal turgor, no rashes or lesions noted CBCD WBC 7.3 K/mm3 (4.0-10.0) D 03/26/17 06:15 RBC 4.32 M/mm3 (3.60-5.2) 03/26/17 06:15 Hgb 11.5 GM/dL (10.7-15.3) 03/26/17 06:15 Hct 34.9 % (32.4-45.2) 03/26/17 06:15 MCV 80.7 fl (80-96) 03/26/17 06:15 MCHC 33.1 g/dl (32.0-36.0) 03/26/17 06:15 RDW 15.3 % (11.6-15.6) 03/26/17 06:15 Plt Count 125 K/MM3 (134-434) L 03/26/17 06:15 MPV 10.1 fl (7.5-11.1) 03/26/17 06:15 CMP Sodium 139 mmol/L (136-145) 03/26/17 06:15 Potassium 3.4 mmol/L (3.5-5.1) L 03/26/17 06:15 Chloride 100 mmol/L (98-107) 03/26/17 06:15 Carbon Dioxide 33 mmol/L (21-32) H 03/26/17 06:15 Anion Gap 6 (8-16) L 03/26/17 06:15 BUN 13 mg/dL (7-18) D 03/26/17 06:15 Creatinine 0.6 mg/dL (0.55-1.02) 03/26/17 06:15 Creat Clearance w eGFR > 60 (>60) 03/26/17 06:15 Random Glucose 78 mg/dL (74-106) 03/26/17 06:15 Calcium 8.6 mg/dL (8.5-10.1) 03/26/17 06:15 Total Bilirubin 0.4 mg/dL (0.2-1.0) D 03/26/17 06:15 AST 109 U/L (15-37) H D 03/26/17 06:15 ALT 135 U/L (12-78) H 03/26/17 06:15 Alkaline Phosphatase 79 U/L (45-117) 03/26/17 06:15 Total Protein 5.4 g/dl (6.4-8.2) L 03/26/17 06:15 Albumin 2.3 g/dl (3.4-5.0) L 03/26/17 06:15 CARDIAC ENZYMES Creatine Kinase 30 IU/L (26-192) 03/24/17 10:27 Troponin I < 0.02 ng/ml (0.00-0.05) 03/24/17 10:27 Current Medications Generic Name Dose Route Start Last Admin Trade Name Dejan PRN Reason Stop Dose Admin Furosemide 40 mg 03/24/17 17:00 03/26/17 14:24 Lasix - PO 40 mg BIDLASIX RAMAN Administration Heparin Sodium (Porcine) 5,000 unit 03/24/17 22:00 03/26/17 10:43 Heparin - SQ 5,000 unit BID RAMAN Administration Levofloxacin 50 mls @ 50 mls/hr 03/25/17 14:30 03/26/17 11:15 Levaquin 250 Mg Premixed Ivpb - IVPB 50 mls/hr DAILY RAMAN Administration Cefazolin Sodium 50 mls @ 100 mls/hr 03/25/17 18:00 03/26/17 17:37 Ancef 1gm Ivpb (Pre-Docked) IVPB 100 mls/hr Q8H-IV RAMAN Administration Polyethylene Glycol 17 gm 03/24/17 17:00 03/26/17 10:45 Miralax (For Daily Use) - PO Not Given DAILY RAMAN Silver Sulfadiazine 1 applic 03/25/17 10:00 03/26/17 14:24 Silvadene - TP 1 applic DAILY RAMAN Administration Home Medications Medication Instructions Recorded Furosemide [Lasix -] 40 mg PO BID 06/09/16 Naproxen [Naprosyn -] 500 mg PO BID 06/09/16 Simvastatin 20 mg PO DAILY 06/09/16 Acetaminophen W/ Codeine #3 1 tab PO Q6H #120 tablet MDD 4 10/28/16 [Tylenol # 3 -] Silver Sulfadiazine [Silvadene] 1 applic TP DAILY 01/27/17 A/P: The patient is a 77 year old female with a significant past medical history of Lymphedema in b/l lower ext, HLD, OA, colon CA s/p resection in remission, who BIBEMS to ER instead of her scheduled wound care f/u because she felt very ill during the ride. # Acute UTI , IV Levaquin continue, IVF x 1 liter # Acute Leukocytosis with left shift due to UTI and Left lower extremity cellulitis ,WBC 19--> 13 trending down on IV Levaquin and Ancef # Acute elevated transaminitis will monitor, will hold Lipitor, Tylenol, Not give Rocephin at this time received one dose in ED. # Bl LE lymphedema with left LE cellulitis, IV Ancef started , ID consult Dr.Berky Dr Paniagua consult , Morphine for pain, silvadene cream #HTN on lasix 40 bid #HLD. will hold lipitor since elevated LFts #Constipation continue miralax DVT Px: Heparin Visit type - Emergency Visit Emergency Visit: Yes ED Registration Date: 03/24/17 Care time: The patient presented to the Emergency Department on the above date and was hospitalized for further evaluation of their emergent condition. - New Patient This patient is new to me today: No - Critical Care Critical Care patient: No
[2017-03-27] MEDS: CEFAZOLIN (PRE-DOCKED) 50 ML IVPB SCH ×3 (02:17→17:51)
[2017-03-27] MEDS ORDERED: ACETAMINOPHEN 500 MG TABLET (FP) PO ONE (02:27)
[2017-03-27] MEDS ORDERED: ACETAMINOPHEN 500 MG TABLET (FP) ONE (02:34)
[2017-03-27] MEDS: FUROSEMIDE 40 MG TABLET (FP) PO SCH ×2 (06:07→14:06)
[2017-03-27] MEDS: HEPARIN NA (PORCINE) 5,000 UNITS/ML 1ML VIAL SQ SCH ×2 (10:12→22:44)
[2017-03-27] MEDS: LEVOFLOXACIN 250 MG IVPB 50 ML IVPB SCH (11:00)
[2017-03-27] MEDS ORDERED: ONDANSETRON 4 MG/2 ML VIAL IVPB ONE (11:00)
[2017-03-27] MEDS: SILVER SULFADIAZINE 1% TOP CREAM 50 GM JAR TP SCH (11:10)
[2017-03-27] MEDS: POLYETHYLENE GLYCOL 3350 119 GM BTL PO SCH (11:11)
--- NOTE | 2017-03-27 12:50 | PN ---
Progress Note (short form) - Note Progress Note: Vascular Surgery Pt seen and examined. Well known to wound care clinic with lymphedema. Has lymphedema pump at home. Now has UTI with elevated WBC. Pt with bilateral lower ext swelling with some skin excoriations. Cont silvadene to both leg excoriations. Can use ENID for compression for lymphedema while in hospital Gregorio Paniagua DO
[2017-03-27] MEDS ORDERED: ONDANSETRON 4 MG/2 ML VIAL IVPB PRN (17:05)
--- NOTE | 2017-03-27 19:11 | PN ---
Teaching Attending Note Name of Resident: Jeffrey Lema ATTENDING PHYSICIAN STATEMENT I saw and evaluated the patient. I reviewed the resident's note and discussed the case with the resident. I agree with the resident's findings and plan as documented. SUBJECTIVE: No new compalins, doing better. OBJECTIVE: Vital Signs Temperature 98.9 F 03/27/17 18:47 Pulse Rate 86 03/27/17 18:47 Respiratory Rate 20 03/27/17 18:47 Blood Pressure 106/48 03/27/17 18:47 O2 Sat by Pulse Oximetry (%) 98 03/27/17 09:00 CBCD WBC 7.3 K/mm3 (4.0-10.0) D 03/26/17 06:15 RBC 4.32 M/mm3 (3.60-5.2) 03/26/17 06:15 Hgb 11.5 GM/dL (10.7-15.3) 03/26/17 06:15 Hct 34.9 % (32.4-45.2) 03/26/17 06:15 MCV 80.7 fl (80-96) 03/26/17 06:15 MCHC 33.1 g/dl (32.0-36.0) 03/26/17 06:15 RDW 15.3 % (11.6-15.6) 03/26/17 06:15 Plt Count 125 K/MM3 (134-434) L 03/26/17 06:15 MPV 10.1 fl (7.5-11.1) 03/26/17 06:15 CMP Sodium 139 mmol/L (136-145) 03/26/17 06:15 Potassium 3.4 mmol/L (3.5-5.1) L 03/26/17 06:15 Chloride 100 mmol/L (98-107) 03/26/17 06:15 Carbon Dioxide 33 mmol/L (21-32) H 03/26/17 06:15 Anion Gap 6 (8-16) L 03/26/17 06:15 BUN 13 mg/dL (7-18) D 03/26/17 06:15 Creatinine 0.6 mg/dL (0.55-1.02) 03/26/17 06:15 Creat Clearance w eGFR > 60 (>60) 03/26/17 06:15 Random Glucose 78 mg/dL (74-106) 03/26/17 06:15 Calcium 8.6 mg/dL (8.5-10.1) 03/26/17 06:15 Total Bilirubin 0.4 mg/dL (0.2-1.0) D 03/26/17 06:15 AST 109 U/L (15-37) H D 03/26/17 06:15 ALT 135 U/L (12-78) H 03/26/17 06:15 Alkaline Phosphatase 79 U/L (45-117) 03/26/17 06:15 Total Protein 5.4 g/dl (6.4-8.2) L 03/26/17 06:15 Albumin 2.3 g/dl (3.4-5.0) L 03/26/17 06:15 CARDIAC ENZYMES Creatine Kinase 30 IU/L (26-192) 03/24/17 10:27 Troponin I < 0.02 ng/ml (0.00-0.05) 03/24/17 10:27 Home Medications Medication Instructions Recorded Furosemide [Lasix -] 40 mg PO BID 06/09/16 Naproxen [Naprosyn -] 500 mg PO BID 06/09/16 Simvastatin 20 mg PO DAILY 06/09/16 Acetaminophen W/ Codeine #3 1 tab PO Q6H #120 tablet MDD 4 10/28/16 [Tylenol # 3 -] Silver Sulfadiazine [Silvadene] 1 applic TP DAILY 01/27/17 Microbiology 03/24/17 13:09 Blood - Peripheral Venous Blood Culture - Preliminary NO GROWTH OBTAINED AFTER 72 HOURS, INCUBATION TO CONTINUE FOR 2 DAYS. 03/24/17 13:09 Blood - Peripheral Venous Blood Culture - Preliminary NO GROWTH OBTAINED AFTER 72 HOURS, INCUBATION TO CONTINUE FOR 2 DAYS. 03/25/17 07:00 Urine - Urine Clean Catch Urine Culture - Final Contaminated: Please Repeat 03/24/17 12:10 Urine - Urine - Catheterized Urine Culture - Final Proteus Vulgaris PE: per resident's note ASSESSMENT AND PLAN: The patient is a 77 year old female with a significant past medical history of Lymphedema in b/l lower ext, HLD, OA, colon CA s/p resection in remission, who was brought in to ER instead of her scheduled wound care f/u because she felt very ill during the ride. # Acute UTI , On IV Levaquin continue for now, IVF x 1 liter # Acute Leukocytosis imoriving due to UTI and Left lower extremity cellulitis , WBC 19--> 13-->7.3 today, trending down # Acute elevated transaminitis will monitor, will hold Lipitor, Tylenol, Not give Rocephin at this time received one dose in ED. # Bl LE lymphedema with left LE cellulitis, ON IV Ancef IMPROVING ON IV ANTIBIOTIC , ID consult Dr.Berky Dr Paniagua consult , Morphine for pain, silvadene cream #HTN on lasix 40 bid #HLD. will hold lipitor since elevated LFts #Constipation continue miralax DVT Px: Heparin
--- NOTE | 2017-03-27 21:57 | PN ---
Physical Exam: SUBJECTIVE: Patient seen and examined this AM. Patient is comfortable, in no pain, no fevers, no chills, no SOB. Patient feels she is back to baseline. Informed about UTI OBJECTIVE: Vital Signs Period Temp Pulse Resp BP Sys/Douglas Pulse Ox Last 24 Hr 97.6 F-98.9 F 76-86 18-20 106-128/48-74 98 GENERAL: The patient is awake, alert, and fully oriented, in no acute distress. EYES: PERRL, extraocular movements intact LUNGS: Breath sounds equal, clear to auscultation bilaterally, no wheezes, no crackles HEART: Regular rate and rhythm, S1, S2 without murmur, rub or gallop. ABDOMEN: Soft, nontender, nondistended, normoactive bowel sounds UPPER EXTREMITIES: 2+ pulses, warm, well-perfused, no edema. LOWER EXTREMITIES: Diffuse bilateral lymphedema with scaling + stasis changes, noneryhtematous, nontender, not inflammed NEUROLOGICAL: Cranial nerves II through XII grossly intact. Normal speech, gait not observed. Laboratory Results - last 24 hr 03/27/17 09:10 Magnesium Cancelled Active Medications Generic Name Dose Route Start Last Admin Trade Name Freq PRN Reason Stop Dose Admin Furosemide 40 mg 03/24/17 17:00 03/27/17 14:06 Lasix - PO 40 mg BIDLASIX RAMAN Administration Heparin Sodium (Porcine) 5,000 unit 03/24/17 22:00 03/27/17 10:12 Heparin - SQ 5,000 unit BID RAMAN Administration Levofloxacin 50 mls @ 50 mls/hr 03/25/17 14:30 03/27/17 11:00 Levaquin 250 Mg Premixed Ivpb - IVPB 50 mls/hr DAILY RAMAN Administration Cefazolin Sodium 50 mls @ 100 mls/hr 03/25/17 18:00 03/27/17 17:51 Ancef 1gm Ivpb (Pre-Docked) IVPB 100 mls/hr Q8H-IV RAMAN Administration Ondansetron HCl 4 mg 03/27/17 17:05 Zofran Injection IVPB ONCE PRN NAUSEA Polyethylene Glycol 17 gm 03/24/17 17:00 03/27/17 11:11 Miralax (For Daily Use) - PO Not Given DAILY RAMAN Silver Sulfadiazine 1 applic 03/25/17 10:00 03/27/17 11:10 Silvadene - TP 1 applic DAILY RAMAN Administration IMAGING: CT Abdomen - No signs of diverticulitis, +L lower anterior abdominal wall ventral hernia containing opacified small and large bowel, no sign of strangulation, hernia sac measures 5 x 6 x 4cm ASSESSMENT/PLAN: Pt is 77yo female with PMHx of Lymphedema in BLLE, HLD, OA, CRC s/p resection in remission, who presented to ER instead of her scheduled wound care because she felt nauseous during the ride. She presented with +SIRS criteria with high WBC count and tachycardia. Blood and urine cultures were taken, with urine cultures positive for Proteus UTI. # Acute UTI - Proteus - UA significant for 2+ blood, 2+ leuk esterase, neg nitrates, rare bacteria - Though pt was asymptomatic, urine cultures showed +Proteus, blood cx negative - WBC 19 --> 13.0 --> 7.3 - Pt has nonobstructing kidney stones in R kidney according to CT - Patient now on Ceftriaxone 1gm Q8 and IV Levaquin 250mg QD # Nausea/Vomiting - resolving - Patient presented with nausea on admission, CT abd unremarkable for acute process, so could be constipation vs motion sickness - Currently resolving - Zofran ordered once for nausea, discuss other meds (Zofran with Levo can prolong QTC) # LE lymphedema - Pt is well known to wound care clinic, has lymphedema pump at home - Dr. Paniagua from Vascular recommends continued SIlvadene to both leg excoriations - Can use ENID compressions for lymphedema while in hospital #Acute Elevated Transaminitis - Rising AST/ALT (max 148 / 137) - Continue to monitor - Will hold Lipitor and Tylenol # History of HTN - well controlled - Continue Lasix 40mg PO bid # History of HLD - Hold Lipitor 20mg PO QHS due to transaminitis # Constipation - Continue Miralax QD # FEN - Fluids: Not on fluids - Electrolytes: No worrying abnormalities - Nutrition: Na+ restricted DIet # Code Status - Full COde Visit type - Emergency Visit Emergency Visit: No - New Patient This patient is new to me today: No - Critical Care Critical Care patient: No
[2017-03-28] MEDS: CEFAZOLIN (PRE-DOCKED) 50 ML IVPB SCH ×3 (02:32→17:58)
[2017-03-28] MEDS: FUROSEMIDE 40 MG TABLET (FP) PO SCH ×2 (06:32→13:23)
--- NOTE | 2017-03-28 06:54 | PN ---
Physical Exam: SUBJECTIVE: Patient seen and examined this AM. She complained of muscular neck pain, which resolved with position change. Last night she complained of nausea and received the 1 time Zofran dose. Her nausea is associated with abdominal discomfort in lower abdomen in the region of her hernia. OBJECTIVE: Vital Signs Period Temp Pulse Resp BP Sys/Douglas Pulse Ox Last 24 Hr 97.8 F-98.9 F 77-88 16-20 98-138/46-74 98-98 GENERAL: The patient is awake, alert, and fully oriented, in no acute distress. EYES: PERRL, extraocular movements intact LUNGS: Breath sounds equal, clear to auscultation bilaterally, no wheezes, no crackles HEART: Regular rate and rhythm, S1, S2 without murmur, rub or gallop. ABDOMEN: Soft, nondistended, slight discomfort on palpation, able to feel ventral hernia, normo/hyperactive bowel sounds UPPER EXTREMITIES: 2+ pulses, warm, well-perfused, no edema. LOWER EXTREMITIES: Diffuse bilateral lymphedema with scaling + stasis changes, LLE mildly eryhtematous than right, nontender, improving NEUROLOGICAL: Cranial nerves II through XII grossly intact. Normal speech, gait not observed. Laboratory Results - last 24 hr 03/27/17 09:10 Magnesium Cancelled Active Medications Generic Name Dose Route Start Last Admin Trade Name Candelarioq PRN Reason Stop Dose Admin Furosemide 40 mg 03/24/17 17:00 03/28/17 06:32 Lasix - PO 40 mg BIDLASIX RAMAN Administration Heparin Sodium (Porcine) 5,000 unit 03/24/17 22:00 03/27/17 22:44 Heparin - SQ 5,000 unit BID RAMAN Administration Levofloxacin 50 mls @ 50 mls/hr 03/25/17 14:30 03/27/17 11:00 Levaquin 250 Mg Premixed Ivpb - IVPB 50 mls/hr DAILY RAMAN Administration Cefazolin Sodium 50 mls @ 100 mls/hr 03/25/17 18:00 03/28/17 02:32 Ancef 1gm Ivpb (Pre-Docked) IVPB 100 mls/hr Q8H-IV RAMAN Administration Ondansetron HCl 4 mg 03/27/17 17:05 03/27/17 22:49 Zofran Injection IVPB 4 mg ONCE PRN Administration NAUSEA Polyethylene Glycol 17 gm 03/24/17 17:00 07/10/17 11:11 Miralax (For Daily Use) - PO Not Given DAILY RAMAN Silver Sulfadiazine 1 applic 03/25/17 10:00 03/27/17 11:10 Silvadene - TP 1 applic DAILY RAMAN Administration IMAGING CT Abdomen - No signs of diverticulitis, +L lower anterior abdominal wall ventral hernia containing opacified small and large bowel, no sign of strangulation, hernia sac measures 5 x 6 x 4cm ASSESSMENT/PLAN: Pt is 77yo female with PMHx of Lymphedema in BLLE, HLD, OA, CRC s/p resection in remission, who presented to ER instead of her scheduled wound care because she felt nauseous during the ride. She presented with +SIRS criteria with high WBC count and tachycardia. Blood and urine cultures were taken, with urine cultures positive for Proteus UTI. # Acute UTI - Proteus - UA significant for 2+ blood, 2+ leuk esterase, neg nitrates, rare bacteria - Though pt was asymptomatic, urine cultures showed +Proteus, blood cx negative - WBC 19 --> 13.0 --> 7.3 - Pt has nonobstructing kidney stones in R kidney according to CT - Patient now on Ceftriaxone 1gm Q8 and IV Levaquin 250mg QD # Acute LLE Cellulitis - Resolving - Patient presnted with erythematous, warm, swollen BLLE but LLE > RLE - Examined BLLE today, improving, erythema and warmth has decreased # Nausea/Vomiting - unresolved - Patient presented with nausea on admission, CT abd unremarkable for acute process, so could be constipation vs motion sickness, continues to have nausea and mild abd discomfort in area of ventral hernia - ordered KUB for today - Discuss other meds for nausea as Zofran with Levo can prolong QTC # LE lymphedema - Pt is well known to wound care clinic, has lymphedema pump at home - Dr. Paniagua from Vascular recommends continued SIlvadene + Christiano wraps #Acute Elevated Transaminitis - Rising AST/ALT (max 148 / 137) - Continue to monitor - Will hold Lipitor and Tylenol # History of HTN - well controlled - Continue Lasix 40mg PO bid # History of HLD - Hold Lipitor 20mg PO QHS due to transaminitis # Constipation - Continue Miralax QD # FEN - Fluids: Not on fluids - Electrolytes: No worrying abnormalities - Nutrition: Na+ restricted DIet # Code Status - Full COde Visit type - Emergency Visit Emergency Visit: No - New Patient This patient is new to me today: No - Critical Care Critical Care patient: No
[2017-03-28 07:21] LABS: MCH 26.4 pg (25.7-33.7); MCHC 33.2 g/dl (32.0-36.0); MEAN CELL VOLUME 79.6 fl (80-96); MEAN PLT VOLUME 10.4 fl (7.5-11.1); PLATELET COUNT 185 K/MM3 (134-434); RDW 15.2 % (11.6-15.6); WHITE BLOOD COUNT 7.6 K/mm3 (4.0-10.0)
[2017-03-28 07:37] LABS: ALBUMIN 2.5 g/dl (3.4-5.0); ALK PHOS 86 U/L (45-117); ANION GAP 9 (8-16); BILIRUBIN,TOTAL 0.4 mg/dL (0.2-1.0); CALCIUM 9.2 mg/dL (8.5-10.1); CO2 34 mmol/L (21-32); CREATININE 0.6 mg/dL (0.55-1.02); GLUCOSE,RANDOM 89 mg/dL (74-106); SGOT/AST 46 U/L (15-37); SGPT/ALT 69 U/L (12-78); TOT PROT 6.3 g/dl (6.4-8.2)
[2017-03-28] MEDS ORDERED: POTASSIUM CHLORIDE TABS 20 MEQ TABLET.ER (FP) PO ONE (09:00)
[2017-03-28] MEDS: POLYETHYLENE GLYCOL 3350 119 GM BTL PO SCH ×2 (09:09→09:12)
[2017-03-28] MEDS: HEPARIN NA (PORCINE) 5,000 UNITS/ML 1ML VIAL SQ SCH ×2 (09:09→22:31)
[2017-03-28] MEDS: LEVOFLOXACIN 250 MG IVPB 50 ML IVPB SCH (10:40)
[2017-03-28] MEDS: SILVER SULFADIAZINE 1% TOP CREAM 50 GM JAR TP SCH (10:41)
[2017-03-28] MEDS: LACTOBACILLUS ACIDOPHILUS 1 EACH TAB (FP) PO SCH ×2 (13:23→22:31)
[2017-03-28] MEDS ORDERED: CEFAZOLIN 1 GM/D5W 50 ML IVPB SCH (18:00)
[2017-03-28] MEDS ORDERED: CEFAZOLIN 1 GM in DEXTROSE 5%-WATER - 50 ML IVPB SCH (18:00)
--- NOTE | 2017-03-28 20:11 | PN ---
Teaching Attending Note Name of Resident: Jeffrey Lema ATTENDING PHYSICIAN STATEMENT I saw and evaluated the patient. I reviewed the resident's note and discussed the case with the resident. I agree with the resident's findings and plan as documented. SUBJECTIVE: Patient is comfortable, c/o having diarrhea but checked the stool after patient having BM , was formed greenish color stool. OBJECTIVE: Vital Signs Temperature 98.4 F 03/28/17 18:00 Pulse Rate 83 03/28/17 18:00 Respiratory Rate 18 03/28/17 18:00 Blood Pressure 126/64 03/28/17 18:00 O2 Sat by Pulse Oximetry (%) 98 03/28/17 09:00 PE: per resident's note LE: no erythema noted, no warmth to touch cleared the cellulitis CBCD WBC 7.6 K/mm3 (4.0-10.0) 03/28/17 06:00 RBC 5.00 M/mm3 (3.60-5.2) 03/28/17 06:00 Hgb 13.2 GM/dL (10.7-15.3) D 03/28/17 06:00 Hct 39.8 % (32.4-45.2) 03/28/17 06:00 MCV 79.6 fl (80-96) L 03/28/17 06:00 MCHC 33.2 g/dl (32.0-36.0) 03/28/17 06:00 RDW 15.2 % (11.6-15.6) 03/28/17 06:00 Plt Count 185 K/MM3 (134-434) D 03/28/17 06:00 MPV 10.4 fl (7.5-11.1) 03/28/17 06:00 CMP Sodium 139 mmol/L (136-145) 03/28/17 06:00 Potassium 3.2 mmol/L (3.5-5.1) L 03/28/17 06:00 Chloride 96 mmol/L (98-107) L 03/28/17 06:00 Carbon Dioxide 34 mmol/L (21-32) H 03/28/17 06:00 Anion Gap 9 (8-16) 03/28/17 06:00 BUN 12 mg/dL (7-18) 03/28/17 06:00 Creatinine 0.6 mg/dL (0.55-1.02) 03/28/17 06:00 Creat Clearance w eGFR > 60 (>60) 03/28/17 06:00 Random Glucose 89 mg/dL (74-106) 03/28/17 06:00 Calcium 9.2 mg/dL (8.5-10.1) 03/28/17 06:00 Total Bilirubin 0.4 mg/dL (0.2-1.0) 03/28/17 06:00 AST 46 U/L (15-37) H D 03/28/17 06:00 ALT 69 U/L (12-78) D 03/28/17 06:00 Alkaline Phosphatase 86 U/L (45-117) 03/28/17 06:00 Total Protein 6.3 g/dl (6.4-8.2) L 03/28/17 06:00 Albumin 2.5 g/dl (3.4-5.0) L 03/28/17 06:00 CARDIAC ENZYMES Creatine Kinase 30 IU/L (26-192) 03/24/17 10:27 Troponin I < 0.02 ng/ml (0.00-0.05) 03/24/17 10:27 Current Medications Generic Name Dose Route Start Last Admin Trade Name Freq PRN Reason Stop Dose Admin Furosemide 40 mg 03/24/17 17:00 03/28/17 13:23 Lasix - PO 40 mg BIDLASIX RAMAN Administration Heparin Sodium (Porcine) 5,000 unit 03/24/17 22:00 03/28/17 09:09 Heparin - SQ 5,000 unit BID RAMAN Administration Levofloxacin 50 mls @ 50 mls/hr 03/25/17 14:30 03/28/17 10:40 Levaquin 250 Mg Premixed Ivpb - IVPB 50 mls/hr DAILY RAMAN Administration Cefazolin Sodium 50 mls @ 100 mls/hr 03/28/17 18:00 03/28/17 17:58 Ancef 1gm Ivpb (Pre-Docked) IVPB 100 mls/hr Q8H-IV RAMAN Administration Lactobacillus Acidophilus 1 tab 03/28/17 11:30 03/28/17 13:23 Bacid - PO 1 tab BID RAMAN Administration Ondansetron HCl 4 mg 03/27/17 17:05 03/27/17 22:49 Zofran Injection IVPB 4 mg ONCE PRN Administration NAUSEA Polyethylene Glycol 17 gm 03/24/17 17:00 03/28/17 09:12 Miralax (For Daily Use) - PO Not Given DAILY RAMAN Silver Sulfadiazine 1 applic 03/25/17 10:00 03/28/17 10:41 Silvadene - TP 1 applic DAILY RAMAN Administration Home Medications Medication Instructions Recorded Furosemide [Lasix -] 40 mg PO BID 06/09/16 Naproxen [Naprosyn -] 500 mg PO BID 06/09/16 Simvastatin 20 mg PO DAILY 06/09/16 Acetaminophen W/ Codeine #3 1 tab PO Q6H #120 tablet MDD 4 10/28/16 [Tylenol # 3 -] Silver Sulfadiazine [Silvadene] 1 applic TP DAILY 01/27/17 Lactobacillus Acidophilus [Bacid -] 1 tab PO BID tab 03/28/17 Silver Sulfadiazine 1% Top Cr 1 applic TP DAILY jar 03/28/17 [Silvadene -] Urine Test Results Urine Color Ltyellow 03/25/17 07:00 Urine Appearance Slcloudy 03/25/17 07:00 Urine pH 6.0 (5.0-8.0) 03/25/17 07:00 Ur Specific [place] 1.015 (1.005-1.025) 03/25/17 07:00 Urine Protein Negative (NEGATIVE) 03/25/17 07:00 Urine Glucose (UA) Negative (NEGATIVE) 03/25/17 07:00 Urine Ketones Negative (NEGATIVE) 03/25/17 07:00 Urine Blood 1+ (NEGATIVE) H 03/25/17 07:00 Urine Nitrite Negative (NEGATIVE) 03/25/17 07:00 Urine Bilirubin Negative (NEGATIVE) 03/25/17 07:00 Ur Leukocyte Esterase 3+ (NEGATIVE) H 03/25/17 07:00 Urine RBC 4 /hpf (0-3) 03/25/17 07:00 Urine WBC 181 /hpf (3-5) 03/25/17 07:00 Ur Epithelial Cells Rare /hpf (FEW) 03/25/17 07:00 Urine Bacteria Rare /hpf (NONE SEEN) 03/24/17 12:10 Urine Mucus Rare 03/25/17 07:00 03/24/17 13:09 Blood - Peripheral Venous Blood Culture - Preliminary NO GROWTH OBTAINED AFTER 72 HOURS, INCUBATION TO CONTINUE FOR 2 DAYS. 07/07/17 13:09 Blood - Peripheral Venous Blood Culture - Preliminary NO GROWTH OBTAINED AFTER 72 HOURS, INCUBATION TO CONTINUE FOR 2 DAYS. 03/25/17 07:00 Urine - Urine Clean Catch Urine Culture - Final Contaminated: Please Repeat 03/24/17 12:10 Urine - Urine - Catheterized Urine Culture - Final Proteus Vulgaris sensitive to levaquin PE: per resident's note ASSESSMENT AND PLAN: The patient is a 77 year old female with a significant past medical history of Lymphedema in b/l lower ext, HLD, OA, colon CA s/p resection in remission, who BIBEMS to ER instead of her scheduled wound care f/u because she felt very ill during the ride. # Acute UTI , IV Levaquin, s/p IVF x 1 liter. # Acute Leukocytosis with left shift improved due to UTI and Left lower extremity cellulitis ,WBC 19--> 13-->7.6 trending down # Acute elevated transaminitis will monitor, will hold Lipitor, Tylenol, Not give Rocephin at this time received one dose in ED.only in ED. # Acute Bl LE cellulitis, continue IV Ancef ; responding to ancef . Dr Paniagua consult , Morphine for pain, silvadene cream #HTN on lasix 40 bid #HLD. will hold lipitor since elevated LFts #Constipation continue miralax DVT Px: Heparin Patient's LE improved, can be discharged home on Keflex x 4 more days and levaquin po x 3 more days
[2017-03-28] MEDS: ZOLPIDEM TARTRATE 5 MG TABLET PO PRN (22:46)
[2017-03-29] MEDS: CEFAZOLIN (PRE-DOCKED) 50 ML IVPB SCH ×2 (01:48→09:40)
[2017-03-29] MEDS: FUROSEMIDE 40 MG TABLET (FP) PO SCH ×3 (06:27→18:37)
[2017-03-29 07:25] LABS: MCH 26.6 pg (25.7-33.7); MCHC 33.1 g/dl (32.0-36.0); MEAN CELL VOLUME 80.1 fl (80-96); MEAN PLT VOLUME 9.7 fl (7.5-11.1); PLATELET COUNT 200 K/MM3 (134-434); RDW 15.2 % (11.6-15.6); WHITE BLOOD COUNT 7.2 K/mm3 (4.0-10.0)
--- NOTE | 2017-03-29 07:54 | PN ---
Physical Exam: SUBJECTIVE: Patient seen and examined this AM. She still complains of nausea and states that the "nausea is in her stomach" in the vicinity of her abdominal hernia. She has no pain, no chest pain, no SOB, no fevers, no chills. Nurses stated that she had no acute events last night. Legs are not in pain. Complains of diarrhea, continued. OBJECTIVE: Vital Signs Period Temp Pulse Resp BP Sys/Douglas Pulse Ox Last 24 Hr 97.9 F-98.8 F 79-90 18-18 101-126/58-77 96-98 GENERAL: The patient is awake, alert, and fully oriented, in no acute distress. EYES: PERRL, extraocular movements intact LUNGS: Breath sounds equal, clear to auscultation bilaterally, no wheezes, no crackles HEART: Regular rate and rhythm, S1, S2 without murmur, rub or gallop. ABDOMEN: Soft, nondistended, slight discomfort on palpation, able to feel ventral hernia, normo/hyperactive bowel sounds UPPER EXTREMITIES: 2+ pulses, warm, well-perfused, no edema. LOWER EXTREMITIES: Diffuse bilateral lymphedema with scaling + stasis changes, LLE mildly eryhtematous than right, nontender, improving NEUROLOGICAL: Cranial nerves II through XII grossly intact. Normal speech, gait not observed. Laboratory Results - last 24 hr 03/28/17 03/28/17 03/29/17 06:00 06:00 06:00 WBC 7.2 RBC 5.23 H Hgb 13.9 Hct 41.9 MCV 80.1 MCH 26.6 MCHC 33.1 RDW 15.2 Plt Count 200 MPV 9.7 Sodium 139 Potassium 3.2 L Chloride 96 L Carbon Dioxide 34 H Anion Gap 9 BUN 12 Creatinine 0.6 Creat Clearance w eGFR > 60 Random Glucose 89 Calcium 9.2 Magnesium 2.0 Cancelled Total Bilirubin 0.4 AST 46 H D ALT 69 D Alkaline Phosphatase 86 Total Protein 6.3 L Albumin 2.5 L Active Medications Generic Name Dose Route Start Last Admin Trade Name Freq PRN Reason Stop Dose Admin Furosemide 40 mg 03/24/17 17:00 03/29/17 06:27 Lasix - PO 40 mg BIDLASIX RAMAN Administration Heparin Sodium (Porcine) 5,000 unit 03/24/17 22:00 03/28/17 22:31 Heparin - SQ 5,000 unit BID RAMAN Administration Levofloxacin 50 mls @ 50 mls/hr 03/25/17 14:30 03/28/17 10:40 Levaquin 250 Mg Premixed Ivpb - IVPB 50 mls/hr DAILY RAMAN Administration Cefazolin Sodium 50 mls @ 100 mls/hr 03/28/17 18:00 03/29/17 01:48 Ancef 1gm Ivpb (Pre-Docked) IVPB 100 mls/hr Q8H-IV RAMAN Administration Lactobacillus Acidophilus 1 tab 03/28/17 11:30 03/28/17 22:31 Bacid - PO 1 tab BID RAMAN Administration Ondansetron HCl 4 mg 03/27/17 17:05 03/27/17 22:49 Zofran Injection IVPB 4 mg ONCE PRN Administration NAUSEA Polyethylene Glycol 17 gm 03/24/17 17:00 03/28/17 09:12 Miralax (For Daily Use) - PO Not Given DAILY RAMAN Silver Sulfadiazine 1 applic 03/25/17 10:00 03/28/17 10:41 Silvadene - TP 1 applic DAILY RAMAN Administration Zolpidem Tartrate 5 mg 03/28/17 22:34 03/28/17 22:46 Ambien - PO 03/29/17 22:33 5 mg HS PRN Administration INSOMNIA IMAGING: CT Abdomen - No signs of diverticulitis, +L lower anterior abdominal wall ventral hernia containing opacified small and large bowel, no sign of strangulation, hernia sac measures 5 x 6 x 4cm Abdominal XR - No acute abdominal process ASSESSMENT/PLAN: Pt is 77yo female with PMHx of Lymphedema in LE, HLD, OA, CRC s/p resection in remission, who presented to ER instead of her scheduled wound care because she felt nauseous during the ride. She presented with +SIRS criteria with high WBC count and tachycardia. Blood and urine cultures were taken, with urine cultures positive for Proteus UTI. # Diarrhea - Patient has been having diarrhea for couple of days, green/brown, odorous --> f/u C.diff panel + Stool cx # Acute UTI - Proteus - UA significant for 2+ blood, 2+ leuk esterase, neg nitrates, rare bacteria - Though pt was asymptomatic, urine cultures showed +Proteus, blood cx negative - WBC 19 --> 13.0 --> 7.3 - Pt has nonobstructing kidney stones in R kidney according to CT - IV Levaquin 250mg QD --> D/C on Levaquin 250mg QD for total of seven days ( end 03/31) # Acute LLE Cellulitis - Resolving - Patient presented with erythematous, warm, swollen BLLE but LLE > RLE, patient treated on Cefazolin 1gm Q8 --> D/c on Keflex 500mg Q6 for total of seven days (end 03/31) - Examined BLLE today, improving, much better, leg was wrapped, may remove wrap later in day to re-examine, erythema and warmth has decreased # Nausea/Vomiting - Patient presented with nausea on admission, CT abd unremarkable for acute process, so could be constipation vs motion sickness, continues to have nausea and mild abd discomfort in area of ventral hernia - KUB shows no acute abdominal process - Discuss other meds for nausea as Zofran with Levo can prolong QTC # LE lymphedema - Pt is well known to wound care clinic, has lymphedema pump at home - Dr. Paniagua from [facility] recommends continued SIlvadene + Christiano wraps #Acute Elevated Transaminitis - resolved - Initially AST/ALT 148 / 137, but now resolved AST/ALT 32/46, continue to monitor - Will hold Lipitor and Tylenol # History of HTN - well controlled - Continue Lasix 40mg PO bid # History of HLD - Hold Lipitor 20mg PO QHS due to transaminitis # Constipation - Continue Miralax QD # FEN - Fluids: Not on fluids - Electrolytes: K+ was 3.4, treated with 40mg Kdur, will follow - Nutrition: Na+ restricted DIet # Code Status - Full Code Visit type - Emergency Visit Emergency Visit: No - New Patient This patient is new to me today: No - Critical Care Critical Care patient: No - Discharge Referral Referred to [facility] No
[2017-03-29 08:36] LABS: ALBUMIN 2.7 g/dl (3.4-5.0); ANION GAP 8 (8-16); CALCIUM 9.6 mg/dL (8.5-10.1); CO2 37 mmol/L (21-32); CREATININE 0.7 mg/dL (0.55-1.02); GLUCOSE,RANDOM 81 mg/dL (74-106); SGOT/AST 32 U/L (15-37); SGPT/ALT 46 U/L (12-78)
[2017-03-29 08:38] LABS: ALK PHOS 87 U/L (45-117); BILIRUBIN,TOTAL 0.5 mg/dL (0.2-1.0); TOT PROT 6.8 g/dl (6.4-8.2)
[2017-03-29] MEDS ORDERED: PT OWN MED DRAWER 7, Y5N ONE (09:35)
[2017-03-29] MEDS: LACTOBACILLUS ACIDOPHILUS 1 EACH TAB (FP) PO SCH ×2 (09:41→21:29)
[2017-03-29] MEDS: LEVOFLOXACIN 250 MG IVPB 50 ML IVPB SCH (09:41)
[2017-03-29] MEDS: HEPARIN NA (PORCINE) 5,000 UNITS/ML 1ML VIAL SQ SCH ×2 (09:41→21:29)
[2017-03-29] MEDS: POLYETHYLENE GLYCOL 3350 119 GM BTL PO SCH (09:42)
[2017-03-29] MEDS ORDERED: POTASSIUM CHLORIDE TABS 20 MEQ TABLET.ER (FP) PO ONE (09:45)
[2017-03-29] MEDS: SILVER SULFADIAZINE 1% TOP CREAM 50 GM JAR TP SCH (14:20)
--- NOTE | 2017-03-29 15:15 | PN ---
Teaching Attending Note Name of Resident: Jeffrey Lema ATTENDING PHYSICIAN STATEMENT I saw and evaluated the patient. I reviewed the resident's note and discussed the case with the resident. I agree with the resident's findings and plan as documented. SUBJECTIVE: pain in LE is much better , has no CP or SOB. reports diarrhea since admission , incontinent to urine. no SOB . No CP OBJECTIVE: NAD , AAOx3 CV: RRR, no MRG Lungs : CTAB Abd : Soft, NT, ND , NL BS . Ext: trace edema and erythema over lower legs , with excoriation on posterior aspect. DP 2+ b/l . ASSESSMENT AND PLAN: 77 y/o lady with h/o Lymphedema , OA , COlon ca s/p remission , who presented with feeling ill . She was found to have UTI, and LE cellulitis 1- Complicated UTI with sepsis : cx with proteus. sensitivity reviewed. - cont levaquin for probably 7-10 days 2- b/l LE celulitis with lymphedema: improved - cont ancef 3- diarrhea , need to r/o c diff. - check c diff and stool Cx . Abd exam is benign 4- Transaminitis : likely due to sepsis . resolved 5- HLP : resume statin at dc . held for LFTS abn dispo : if c diff neg , can be dc to home with resumption of her services
[2017-03-29] MEDS ORDERED: DEXTROSE 5%-WATER - 50 ML IVPB ONE (17:16)
[2017-03-29] MEDS ORDERED: ceFAZolin SODIUM 1 GM VIAL ONE (17:16)
[2017-03-29] MEDS: CEFAZOLIN 1 GM in DEXTROSE 5%-WATER - 50 ML IVPB SCH (17:24)
[2017-03-29] MEDS: ZOLPIDEM TARTRATE 5 MG TABLET PO PRN (22:32)
[2017-03-30] MEDS ORDERED: ceFAZolin SODIUM 1 GM VIAL ONE ×2 (02:18→09:15)
[2017-03-30] MEDS ORDERED: DEXTROSE 5%-WATER - 50 ML IVPB ONE ×2 (02:18→09:15)
[2017-03-30] MEDS: CEFAZOLIN 1 GM in DEXTROSE 5%-WATER - 50 ML IVPB SCH ×2 (02:23→09:52)
[2017-03-30] MEDS: FUROSEMIDE 40 MG TABLET (FP) PO SCH ×2 (06:02→15:43)
[2017-03-30 07:26] LABS: MCH 26.3 pg (25.7-33.7); MEAN CELL VOLUME 79.8 fl (80-96); MEAN PLT VOLUME 9.1 fl (7.5-11.1); PLATELET COUNT 199 K/MM3 (134-434); RDW 15.2 % (11.6-15.6); WHITE BLOOD COUNT 8.5 K/mm3 (4.0-10.0)
[2017-03-30 07:47] LABS: ALBUMIN 2.8 g/dl (3.4-5.0); ANION GAP 9 (8-16); CALCIUM 9.3 mg/dL (8.5-10.1); CO2 34 mmol/L (21-32); CREATININE 0.8 mg/dL (0.55-1.02); GLUCOSE,RANDOM 82 mg/dL (74-106); SGOT/AST 25 U/L (15-37); SGPT/ALT 28 U/L (12-78)
[2017-03-30 07:50] LABS: ALK PHOS 85 U/L (45-117); BILIRUBIN,TOTAL 0.4 mg/dL (0.2-1.0); TOT PROT 6.6 g/dl (6.4-8.2)
--- NOTE | 2017-03-30 08:28 | PN ---
Physical Exam: SUBJECTIVE: Patient seen and examined thsi AM No CP, no sob, no fevers, no chills. No abdominal pain. Pt states she no longer has leg pain, stillre fuses a BLLE U/S. States that her last BM was more formed. OBJECTIVE: Vital Signs Period Temp Pulse Resp BP Sys/Douglas Pulse Ox Last 24 Hr 97.5 F-99.9 F 83-92 18-20 102-123/50-75 95-96 GENERAL: The patient is awake, alert, and fully oriented, in no acute distress. EYES: PERRL, extraocular movements intact LUNGS: Breath sounds equal, clear to auscultation bilaterally, no wheezes, no crackles HEART: Regular rate and rhythm, S1, S2 without murmur, rub or gallop. ABDOMEN: Soft, nondistended, slight discomfort on palpation, able to feel ventral hernia, normo/hyperactive bowel sounds UPPER EXTREMITIES: 2+ pulses, warm, well-perfused, no edema. LOWER EXTREMITIES: Diffuse bilateral lymphedema with scaling + stasis changes, LLE mildly eryhtematous than right, nontender, improving, much better than presentation NEUROLOGICAL: Cranial nerves II through XII grossly intact. Normal speech, gait not observed. Laboratory Results - last 24 hr 03/29/17 03/30/17 03/30/17 06:00 06:00 06:00 WBC 8.5 RBC 5.08 Hgb 13.4 Hct 40.6 MCV 79.8 L MCH 26.3 MCHC 33.0 RDW 15.2 Plt Count 199 MPV 9.1 Sodium 141 138 Potassium 3.4 L 3.6 Chloride 96 L 95 L Carbon Dioxide 37 H 34 H Anion Gap 8 9 BUN 14 17 D Creatinine 0.7 0.8 Creat Clearance w eGFR > 60 > 60 Random Glucose 81 82 Calcium 9.6 9.3 Total Bilirubin 0.5 D 0.4 AST 32 D 25 D ALT 46 D 28 D Alkaline Phosphatase 87 85 Total Protein 6.8 6.6 Albumin 2.7 L 2.8 L Active Medications Generic Name Dose Route Start Last Admin Trade Name Freq PRN Reason Stop Dose Admin Furosemide 40 mg 03/24/17 17:00 03/30/17 06:02 Lasix - PO 40 mg BIDLASIX RAMAN Administration Heparin Sodium (Porcine) 5,000 unit 03/24/17 22:00 03/29/17 21:29 Heparin - SQ 5,000 unit BID RAMAN Administration Levofloxacin 50 mls @ 50 mls/hr 03/25/17 14:30 03/29/17 09:41 Levaquin 250 Mg Premixed Ivpb - IVPB 50 mls/hr DAILY RAMAN Administration Cefazolin Sodium 1 gm/ 50 mls @ 100 mls/hr 03/29/17 12:56 03/30/17 02:23 Dextrose IVPB 100 mls/hr Q8H-IV RAMAN Administration Lactobacillus Acidophilus 1 tab 03/28/17 11:30 03/29/17 21:29 Bacid - PO 1 tab BID RAMAN Administration Ondansetron HCl 4 mg 03/27/17 17:05 03/27/17 22:49 Zofran Injection IVPB 4 mg ONCE PRN Administration NAUSEA Polyethylene Glycol 17 gm 03/24/17 17:00 03/29/17 09:42 Miralax (For Daily Use) - PO Not Given DAILY RAMAN Silver Sulfadiazine 1 applic 03/25/17 10:00 03/29/17 14:20 Silvadene - TP 1 applic DAILY RAMAN Administration ASSESSMENT/PLAN: IMAGING: CT Abdomen - No signs of diverticulitis, +L lower anterior abdominal wall ventral hernia containing opacified small and large bowel, no sign of strangulation, hernia sac measures 5 x 6 x 4cm Abdominal XR - No acute abdominal process ASSESSMENT/PLAN: Pt is 77yo female with PMHx of Lymphedema in [facility], HLD, OA, CRC s/p resection in remission, who presented to ER instead of her scheduled wound care because she felt nauseous during the ride. She presented with +SIRS criteria with high WBC count and tachycardia. Blood and urine cultures were taken, with urine cultures positive for Proteus UTI. # Diarrhea - Patient had diarrhea for couple of days, green/brown, odorous --> f/u C.diff panel + Stool cx # Acute UTI - Proteus - UA significant for 2+ blood, 2+ leuk esterase, neg nitrates, rare bacteria - Though pt was asymptomatic, urine cultures showed +Proteus, blood cx negative - WBC 19 --> 13.0 --> 7.3 --> 8.5 - IV Levaquin 250mg QD --> D/C on Levaquin 250mg QD for total of seven days ( end 03/31) # Acute LLE Cellulitis - Resolving - Patient presented with erythematous, warm, swollen BLLE but LLE > RLE, patient treated on Cefazolin 1gm Q8 --> D/c on Keflex 500mg Q6 for total of seven days (end 03/31) - Examined BLLE today, improving, much better, leg was wrapped, erythema and warmth has decreased, no pain # Nausea/Vomiting - Patient presented with nausea on admission, CT abd unremarkable for acute process, so could be constipation vs motion sickness, continues to have nausea and mild abd discomfort in area of ventral hernia - KUB shows no acute abdominal process - Discuss other meds for nausea as Zofran with Levo can prolong QTC # LE lymphedema - Pt is well known to wound care clinic, has lymphedema pump at home - Dr. Paniagua from [facility] recommends continued SIlvadene + Christiano wraps #Acute Elevated Transaminitis - resolved - Initially AST/ALT 148 / 137, but now resolved AST/ALT 25/28, continue to monitor - Will hold Lipitor and Tylenol # History of HTN - well controlled - Continue Lasix 40mg PO bid # History of HLD - Hold Lipitor 20mg PO QHS due to transaminitis # Constipation - Continue Miralax QD # FEN - Fluids: Not on fluids - Electrolytes: K+ was 3.4, treated with 40mg Kdur, will follow - Nutrition: Na+ restricted DIet # Code Status - Full Code
[2017-03-30] MEDS ORDERED: ACETAMINOPHEN WITH CODEINE 300MG/30MG TABLET PO ONE (08:58)
[2017-03-30] MEDS: HEPARIN NA (PORCINE) 5,000 UNITS/ML 1ML VIAL SQ SCH (09:51)
[2017-03-30] MEDS: LACTOBACILLUS ACIDOPHILUS 1 EACH TAB (FP) PO SCH (09:51)
[2017-03-30] MEDS: LEVOFLOXACIN 250 MG IVPB 50 ML IVPB SCH (10:36)
[2017-03-30] MEDS: POLYETHYLENE GLYCOL 3350 119 GM BTL PO SCH (11:06)
--- NOTE | 2017-03-30 12:30 | DS ---
Physical Exam: SUBJECTIVE: Patient seen and examined OBJECTIVE: Vital Signs Period Temp Pulse Resp BP Sys/Douglas Pulse Ox Last 24 Hr 97.5 F-99.9 F 83-91 18-20 102-122/50-61 95 PHYSICAL EXAM GENERAL: The patient is awake, alert, and fully oriented, in no acute distress. HEAD: Normal with no signs of trauma. EYES: PERRL, extraocular movements intact, sclera anicteric, conjunctiva clear. ENT: Ears normal, nares patent, oropharynx clear without exudates, moist mucous membranes. NECK: Trachea midline, full range of motion, supple. LUNGS: Breath sounds equal, clear to auscultation bilaterally, no wheezes, no crackles, no accessory muscle use. HEART: Regular rate and rhythm, S1, S2 without murmur, rub or gallop. ABDOMEN: Soft, nontender, nondistended, normoactive bowel sounds, no guarding, no rebound, no hepatosplenomegaly, no masses. EXTREMITIES: 2+ pulses, warm, well-perfused, no edema. NEUROLOGICAL: Cranial nerves II through XII grossly intact. Normal speech, gait not observed. PSYCH: Normal mood, normal affect. SKIN: Warm, dry, normal turgor, no rashes or lesions noted. LABS Laboratory Results - last 24 hr 03/30/17 03/30/17 06:00 06:00 WBC 8.5 RBC 5.08 Hgb 13.4 Hct 40.6 MCV 79.8 L MCH 26.3 MCHC 33.0 RDW 15.2 Plt Count 199 MPV 9.1 Sodium 138 Potassium 3.6 Chloride 95 L Carbon Dioxide 34 H Anion Gap 9 BUN 17 D Creatinine 0.8 Creat Clearance w eGFR > 60 Random Glucose 82 Calcium 9.3 Total Bilirubin 0.4 AST 25 D ALT 28 D Alkaline Phosphatase 85 Total Protein 6.6 Albumin 2.8 L IMAGING: CT Abdomen - No signs of diverticulitis, +L lower anterior abdominal wall ventral hernia containing opacified small and large bowel, no sign of strangulation, hernia sac measures 5 x 6 x 4cm Abdominal XR - No acute abdominal process HOSPITAL COURSE: Date of Admission:03/24/17 Date of Discharge: 03/30/17 Ms. Nancy Islas is a 77yo female with history of Lymphedema in BLLE, HLD, OA , CRC s/p resection in remission, who presented to Emergency Department instead of her scheduled wound care because she felt nauseous during the ride. She presented with +SIRS criteria with high WBC count and tachycardia. Blood and urine cultures were taken, with urine cultures positive for Proteus UTI. Blood cultures were negative. The UA was significant for 2+ blood, 2+ leuk esterase, negative nitrates, rare bacteria # Acute UTI - Proteus - We treated the patient with IV Levofloxacin 250mg QD for 6 days, and are discharging the patient on PO Levofloxacin 250 QD for 4 more day for a total of 10 days of treatment - UA significant for 2+ blood, 2+ leuk esterase, neg nitrates, rare bacteria - Though pt was asymptomatic, urine cultures showed +Proteus, blood cx negative - WBC 19 --> 13.0 --> 7.3 --> 8.5 - IV Levaquin 250mg QD --> D/C on Levaquin 250mg QD for total of seven days ( end 03/31) # Diarrhea - Patient had diarrhea for couple of days, green/brown, odorous --> f/u C.diff panel + Stool cx # Acute LLE Cellulitis - Resolving - Patient presented with erythematous, warm, swollen BLLE but LLE > RLE, patient treated on Cefazolin 1gm Q8 --> D/c on Keflex 500mg Q6 for total of seven days (end 03/31) - Examined BLLE today, improving, much better, leg was wrapped, erythema and warmth has decreased, no pain # Nausea/Vomiting - Patient presented with nausea on admission, CT abd unremarkable for acute process, so could be constipation vs motion sickness, continues to have nausea and mild abd discomfort in area of ventral hernia - KUB shows no acute abdominal process - Discuss other meds for nausea as Zofran with Levo can prolong QTC # LE lymphedema - Pt is well known to wound care clinic, has lymphedema pump at home - Dr. Paniagua from [facility] recommends continued SIlvadene + Christiano wraps #Acute Elevated Transaminitis - resolved - Initially AST/ALT 148 / 137, but now resolved AST/ALT 25/28, continue to monitor - Will hold Lipitor and Tylenol # History of HTN - well controlled - Continue Lasix 40mg PO bid # History of HLD - Hold Lipitor 20mg PO QHS due to transaminitis # Constipation - Continue Miralax QD # FEN - Fluids: Not on fluids - Electrolytes: K+ was 3.4, treated with 40mg Kdur, will follow - Nutrition: Na+ restricted DIet # Code Status - Full Code Discharge Summary Reason For Visit: UTI Current Active Problems Cellulitis of left anterior lower leg (Acute) Cellulitis of right anterior lower leg (Acute) UTI (urinary tract infection) (Acute) Condition: Improved - Instructions Diet, Activity, Other Instructions: You were admitted to the hospital because you were nauseous and had elevated white blood cell count. We found that you had a UTI and we are treating you for that. We also noted that you had an infection of your lower legs which we treated as well. Please continue your antibiotics as described on the label. Cefalexin 500mg - take one tablet every 6 hours for 1 more day (until 03/31/2017 ) Levaquin 250mg - take one tablet every day for 4 more days (until 04/03/2017) Metronidazole 500mg - take one tablet every 8 hours for 14 days (until 2016) If you are having watery diarrhea, please stop your Furosemide (Lasix) and CALL your primary doctor Please followup with your primary care physician (Dr. Fox) and the vascular surgeon (Dr. Paniagua) for your legs If you have any serious symptoms please return to the emergency department as soon as possible Referrals: Jorje Healy MD [Primary Care Provider] - 1 Week Gregorio Paniagua MD [Staff Physician] - 1 Week Disposition: HOME - Home Medications Comprehensive Discharge Medication List: Ambulatory Orders Furosemide [Lasix -] 40 mg PO BID 06/09/16 Naproxen [Naprosyn -] 500 mg PO BID 06/09/16 Simvastatin 20 mg PO DAILY 06/09/16 Acetaminophen W/ Codeine #3 [Tylenol # 3 -] 1 tab PO Q6H #120 tablet MDD 4 10/28 Silver Sulfadiazine [Silvadene] 1 applic TP DAILY 01/27/17 Lactobacillus Acidophilus [Bacid -] 1 tab PO BID tab 03/28/17 Silver Sulfadiazine 1% Top Cr [Silvadene -] 1 applic TP DAILY jar 03/28/17 Cephalexin [Keflex] 500 mg PO QID #4 capsule 03/30/17 Levofloxacin [Levaquin -] 250 mg PO DAILY #4 tablet 03/30/17 Metronidazole 500 mg PO TID #42 tablet 03/30/17 - Discharge Referral Referred to [facility] No
--- NOTE | 2017-03-30 13:47 | PN ---
Teaching Attending Note Name of Resident: Jeffrey Lema ATTENDING PHYSICIAN STATEMENT I saw and evaluated the patient. I reviewed the resident's note and discussed the case with the resident. I agree with the resident's findings and plan as documented. SUBJECTIVE: no fever or chills, stool is more formed today . no CP or SOB OBJECTIVE: NAD , AAOx3 CV: RRR, no MRG Lungs : CTAB Abd : Soft, NT, ND , NL BS . Ext: trace edema and erythema over lower legs , with excoriation on posterior aspect. DP 2+ b/l . ASSESSMENT AND PLAN: 77 y/o lady with h/o Lymphedema , OA , COlon ca s/p remission , who presented with feeling ill . She was found to have UTI, and LE cellulitis 1- Complicated UTI with sepsis : cx with proteus. - cont levaquin for total of 10 days 2- b/l LE celulitis with lymphedema: improved - cont ancef x 1 more day ( total of 7 days ) 3- diarrhea , C diff toxin neg but antigen positive, . In the setting of diarrhea will treat with flagyl x 14 days 4- Transaminitis : likely due to sepsis . resolved 5- HLP : [place]in [place] today with resuming her services
[2017-03-30] MEDS ORDERED: ACETAMINOPHEN 325 MG TABLET (FP) PO ONE (15:05)
--- NOTE | 2017-03-30 15:08 | DS ---
Physical Exam: SUBJECTIVE: Patient seen and examined this AM. No complaints. No chest pain, no shortness of breath. Legs have improved. No more leg pain. OBJECTIVE: Vital Signs Period Temp Pulse Resp BP Sys/Douglas Pulse Ox Last 24 Hr 97.5 F-99.9 F 83-93 18-20 102-122/50-61 95 PHYSICAL EXAM GENERAL: The patient is awake, alert, and fully oriented, in no acute distress. EYES: PERRL, extraocular movements intact LUNGS: Breath sounds equal, clear to auscultation bilaterally, no wheezes, no crackles HEART: Regular rate and rhythm, S1, S2 without murmur, rub or gallop. ABDOMEN: Soft, nondistended, slight discomfort on palpation, able to feel ventral hernia, normo/hyperactive bowel sounds UPPER EXTREMITIES: 2+ pulses, warm, well-perfused, no edema. LOWER EXTREMITIES: Diffuse bilateral lymphedema with scaling + stasis changes, LLE mildly eryhtematous than right, nontender, improving, much better than presentation NEUROLOGICAL: Cranial nerves II through XII grossly intact. Normal speech, gait not observed. LABS Laboratory Results - last 24 hr 03/30/17 03/30/17 06:00 06:00 WBC 8.5 RBC 5.08 Hgb 13.4 Hct 40.6 MCV 79.8 L MCH 26.3 MCHC 33.0 RDW 15.2 Plt Count 199 MPV 9.1 Sodium 138 Potassium 3.6 Chloride 95 L Carbon Dioxide 34 H Anion Gap 9 BUN 17 D Creatinine 0.8 Creat Clearance w eGFR > 60 Random Glucose 82 Calcium 9.3 Total Bilirubin 0.4 AST 25 D ALT 28 D Alkaline Phosphatase 85 Total Protein 6.6 Albumin 2.8 L IMAGING: CT Abdomen - No signs of diverticulitis, +L lower anterior abdominal wall ventral hernia containing opacified small and large bowel, no sign of strangulation, hernia sac measures 5 x 6 x 4cm Abdominal XR - No acute abdominal process HOSPITAL COURSE: Date of Admission:03/24/17 Date of Discharge: 03/30/17 ASSESSMENT/PLAN: Pt is 77yo female with PMHx of Lymphedema in BLLE, HLD, OA, CRC s/p resection in remission, who presented to ER instead of her scheduled wound care because she felt nauseous during the ride. She presented with +SIRS criteria with high WBC count and tachycardia. Blood and urine cultures were taken, with urine cultures positive for Proteus UTI. She also presented with acute LLE cellulitis with erythematous, warm, swollen BLLE. Acute UTI - Proteus - The patient was treated with IV Levaquin 500 mg QD for 6 days, and the white counts were trending down from 19 on admission to now 8.5 on discharge. We will discharge the patient on Levaquin 500mg for 4 more days (total of 10 days) to cover for possible pyelonephritis as well. Acute LLE Cellulitis - The patient has chronic lymphedema, with signs consistent with cellulitis on top of it. The patient was treated on Cefazolin 1gm Q8 for 6 days, ENID wraps, and silvadene. The patient will be discharged on Keflex 500mg to take for one more days (for total of seven days of treatment). On discharge the legs look much better, the LLE looks less erythematous, less warm, no pain. Diarrhea - The patient initially presented to the hospital with constipation and was given a bowel regimen. Later, the patient had diarrhea 1-2 times a day for 2-3 days, which was associated with mild abdominal discomfort in the region of the patient's ventral hernia. An abdominal XR showed no acute process. For the diarrhea, we ordered a C. diff panel, which showed positive antigen and no toxin. Over the course of a couple of days, the patient's wattery diarrhea became soft and more formed. On discharge patient had soft, formed stools. To cover for possible C.diff however, we will send home with Metronidazole 500mg PO TID for the next 14 days. Acute Elevated Transaminitis - resolved - On admission, the patient's AST/ALT was 148/137. We held the patient's lipitor and tylenol. During the hospitalzation, the enzymes resolved and on discharge was . Please continue to monitor as an outpatinet Minutes to complete discharge: 50 Discharge Summary Reason For Visit: UTI Current Active Problems Acute diarrhea (Acute) Cellulitis of left anterior lower leg (Acute) Cellulitis of right anterior lower leg (Acute) UTI (urinary tract infection) (Acute) - Instructions Diet, Activity, Other Instructions: You were admitted to the hospital because you were nauseous and had elevated white blood cell count. We found that you had a UTI and we are treating you for that. We also noted that you had an infection of your lower legs which we treated as well. Please continue your antibiotics as described on the label. Cefalexin 500mg - take one tablet every 6 hours for 1 more day (until 03/31/2017 ) Levaquin 500mg - take one tablet every day for 4 more days (until 04/03/2017) Metronidazole 500mg - take one tablet every 8 hours for 14 days (until 2016) If you are having watery diarrhea, please stop your Furosemide (Lasix) and CALL your primary doctor Please followup with your primary care physician (Dr. Fox) and the vascular surgeon (Dr. Paniagua) for your legs If you have any serious symptoms please return to the emergency department as soon as possible Referrals: Jorje Healy MD [Primary Care Provider] - 1 Week Gregorio Paniagua MD [Staff Physician] - 1 Week Disposition: VNS/HOME HEALTH CARE - Home Medications Comprehensive Discharge Medication List: Ambulatory Orders Furosemide [Lasix -] 40 mg PO BID 06/09/16 Simvastatin 20 mg PO DAILY 06/09/16 Silver Sulfadiazine [Silvadene] 1 applic TP DAILY 01/27/17 Lactobacillus Acidophilus [Bacid -] 1 tab PO BID tab 03/28/17 Silver Sulfadiazine 1% Top Cr [Silvadene -] 1 applic TP DAILY jar 03/28/17 Cephalexin [Keflex] 500 mg PO QID #4 capsule 03/30/17 Levofloxacin [Levaquin -] 500 mg PO DAILY #4 tablet 03/30/17 Metronidazole 500 mg PO TID #42 tablet 03/30/17 This patient is new to me today: No Emergency Visit: No Critical Care patient: No - Discharge Referral Referred to [facility] Med [facility].C[facility] No
[2017-03-30] MEDS: SILVER SULFADIAZINE 1% TOP CREAM 50 GM JAR TP SCH (16:32)
[2017-03-30 17:34] VITALS: BP 120/59; PULSE 92; TEMP 98.2
== END 2017-03-30 18:58 | disposition home health service (06) | DRG 872 ==
LOC: JER 09:34 → JERBED 18:26 → J7W 20:16
PROVIDERS: ADMIT Internal Medicine; ATTEND Internal Medicine
DX: A41.9 Sepsis, unspecified organism (principal); N39.0 Urinary tract infection, site not specified; L03.116 Cellulitis of left lower limb; L03.115 Cellulitis of right lower limb; E78.5 Hyperlipidemia, unspecified; M19.90 Unspecified osteoarthritis, unspecified site; R11.2 Nausea with vomiting, unspecified; K59.00 Constipation, unspecified; I89.0 Lymphedema, not elsewhere classified; Z85.038 Personal history of other malignant neoplasm of large intestine; M54.5 Low back pain; B96.4 Proteus (mirabilis) (morganii) as the cause of diseases classified elsewhere; R19.7 Diarrhea, unspecified; R74.0 Nonspecific elevation of levels of transaminase and lactic acid dehydrogenase [LDH]; N20.0 Calculus of kidney; I10 Essential (primary) hypertension
CPT/HCPCS: 36415; 71010-TC; 74020-TC; 74177-TC; 80053; 81003; 81015; 82272; 82550; 83605; 83690; 83735; 84100; 84484; 85025; 85027; 86850; 86900; 86901; 87040; 87045; 87046; 87086; 87186; 87324; 87449; 93005; 93010; 97116-GP; 97161-GP; 99285-25; J1644

== ENCOUNTER 2017-03-31 02:15 | Inpatient (IN) | payer OTHER ==
[2017-03-31 02:22] VITALS: BMI 32.5
--- NOTE | 2017-03-31 02:42 | PDOC ---
History of Present Illness - General Exam Limitations: No Limitations - History of Present Illness Initial Comments: 03/31/17 02:54 The patient is a 77 year old female with a significant past medical history of HLD, wound care, colon cancer, who presents to the ED with persistent nausea. Pt was admitted on 03/24/2017 and discharged last night at 7 PM for nausea. She returns again because of nausea. She lives alone and had returned home in an ambulance. Pt was going to wait for her visiting nurse come in later this morning, but reports that she felt very weak as she attempted to go to bathroom but could not. Pt states that she pushed her medic alert button and was transported to the ED by EMS. On exam, she denies any chest pain or shortness of breath. <Manuela Baig - Last Filed: 03/31/17 05:48> - General History Source: Patient <Joe Fuentes - Last Filed: 04/04/17 19:49> - General Chief Complaint: Nausea/Vomiting Stated Complaint: VOMITING,NAUSEA Time Seen by Provider: 03/31/17 02:37 Past History <Manuela Baig - Last Filed: 03/31/17 05:48> - Past Medical History Anemia: No Asthma: No Cancer: Yes (COLON) Cardiac Disorders: No CVA: No COPD: No CHF: No Dementia: No Diabetes: No GI Disorders: No (H/O COLON CA) Disorders: No HTN: No Hypercholesterolemia: Yes Liver Disease: No Seizures: No Thyroid Disease: No - Surgical History Abdominal Surgery: Yes (COLECTOMY) Appendectomy: No Cardiac Surgery: No Cholecystectomy: Yes (06/01) Lung Surgery: No Neurologic Surgery: No Orthopedic Surgery: No - Psycho/Social/Smoking Cessation Hx Anxiety: No Suicidal Ideation: No Smoking History: Never smoked Have you smoked in the past 12 months: No Information on smoking cessation initiated: No Hx Alcohol Use: No Drug/Substance Use Hx: No Substance Use Type: None Hx Substance Use Treatment: No <Joe Fuentes - Last Filed: 04/04/17 19:49> - Past Medical History Allergies/Adverse Reactions: Allergies Allergy/AdvReac Type Severity Reaction Status Date / Time omeprazole magnesium AdvReac Intermediate Rash Verified 03/31/17 02:20 [From Prilosec] zinc AdvReac Unknown Rash Verified 03/31/17 02:20 Home Medications: Ambulatory Orders Furosemide [Lasix -] 40 mg PO BID 06/09/16 Simvastatin 20 mg PO DAILY 06/09/16 Lactobacillus Acidophilus [Bacid -] 1 tab PO BID tab 03/28/17 Silver Sulfadiazine 1% Top Cr [Silvadene -] 1 applic TP DAILY jar 03/28/17 Acetaminophen [Acetaminophen 8 Hour] 650 mg PO Q8H PRN #20 tablet.er 04/03/17 Metoclopramide HCl [Reglan] 10 mg PO ACHS PRN #20 tablet 04/03/17 Metronidazole [Flagyl -] 500 mg PO Q8H #33 tablet 04/03/17 Review of Systems - Review of Systems Able to Perform ROS?: Yes Comments:: 03/31/17 02:55 CONSTITUTIONAL: Absent: fever, no chills, no fatigue EYES: Absent: visual changes ENT: Absent: ear pain, no sore throat CARDIOVASCULAR: Absent: chest pain, no palpitations RESPIRATORY: Absent: cough, no SOB GI: Present: nausea Absent: abdominal pain, no constipation, no diarrhea GENITOURINARY: Absent: dysuria, no frequency, no hematuria MUSKULOSKELETAL: Absent: back pain, no arthralgia, no myalgia SKIN: Absent: rash NEURO: Absent: headache <Manuela Baig - Last Filed: 03/31/17 05:48> *Physical Exam - Vital Signs Last Vital Signs Temp Pulse Resp BP Pulse Ox 98.5 F 96 H 20 119/85 98 03/31/17 02:20 03/31/17 02:20 03/31/17 02:20 03/31/17 02:20 03/31/17 02:20 - Physical Exam Comments: 03/31/17 02:56 GENERAL: Awake, alert, mild pallor. HEAD: No signs of trauma EYES: PERRLA, EOMI, sclera anicteric, conjunctiva clear ENT: Auricles normal inspection, nares patent, Moist mucosa NECK: Normal ROM, supple, no lymphadenopathy, JVD, or masses LUNGS: Breath sounds equal, clear to auscultation bilaterally. No wheezes, and no crackles HEART: Regular rate and rhythm, normal S1 and S2, no murmurs, rubs or gallops ABDOMEN: (+) Soft, LLQ tenderness, normoactive bowel sounds. No guarding, no rebound. No masses BACK: (+) Kyphotic RECTAL: (+) Little stool at orpheus. No blood appreciated. No perianal wounds noted EXTREMITIES: (+) Normal range of motion, no edema. No clubbing or cyanosis. No cords, left foot erythema, ulcer on anterior aspect of right roldan 3 x 3 cm with pink base and light clear fluid draining. NEUROLOGICAL: Normal speech SKIN: (+) Diaphoretic, normal turgor, no rashes or lesions noted. <Manuela Baig - Last Filed: 03/31/17 05:48> - Vital Signs Last Vital Signs Temp Pulse Resp BP Pulse Ox 98.5 F 96 H 20 119/85 98 03/31/17 02:20 03/31/17 02:20 03/31/17 02:20 03/31/17 02:20 03/31/17 02:20 <Joe Fuentes - Last Filed: 04/04/17 19:49> Heart Score/ECG Review - ECG Intrepretation Comment:: 03/31/17 05:49 EKG was reviewed by Dr. Fuentes at 5:42. Impression: Sinus rhythm with premature atrial complexes with aberrant conduction. Cannot rule out Anterior infarct, age undetermined. Vent. rate: 82 bpm ND interval: 140 ms QTc: 418 ms <Manuela Baig - Last Filed: 03/31/17 05:48> ED Treatment Course - LABORATORY CBC & Chemistry Diagram: 03/31/17 03:30 03/31/17 03:30 <Manuela Baig - Last Filed: 03/31/17 05:48> - LABORATORY CBC & Chemistry Diagram: 04/03/17 06:40 04/03/17 06:40 <Joe Fuentes - Last Filed: 04/04/17 19:49> Medical Decision Making - Medical Decision Making 04/04/17 19:49 Dr. Fuentes: The scribe's documentation has been prepared under my direction and personally reviewed by me in its entirery. I confirm that the note above accurately reflects all work, treatment, procedures, and medical decision making performed by me. <Joe Fuentes - Last Filed: 04/04/17 19:49> *DC/Admit/Observation/Transfer - Attestations Scribe Attestion: 03/31/17 02:57 Documentation prepared by Manuela Baig, acting as medical research tech for Joe Fuentes MD. <Manuela Baig - Last Filed: 03/31/17 05:48> <Joe Fuentes - Last Filed: 04/04/17 19:49> Diagnosis at time of Disposition: UTI (urinary tract infection) Qualifiers: Urinary tract infection type: acute cystitis Hematuria presence: with hematuria Qualified Code(s): N30.01 - Acute cystitis with hematuria - Discharge Dispostion Disposition: [facility] F[facility] Condition at time of disposition: Guarded - Prescriptions
[2017-03-31] MEDS ORDERED: ONDANSETRON 4 MG/2 ML VIAL IVPUSH STA (03:20)
[2017-03-31] MEDS ORDERED: SODIUM CHLORIDE 1,000 ML IV SCH (03:30)
[2017-03-31] MEDS ORDERED: ONDANSETRON 4 MG/2 ML VIAL ONE (03:45)
[2017-03-31 03:46] LABS: BASOPHIL 0.7 % (0-2.0); EOSINOPHIL 0.3 % (0-4.5); MCH 25.4 pg (25.7-33.7); MEAN CELL VOLUME 79.6 fl (80-96); MEAN PLT VOLUME 9.3 fl (7.5-11.1); NEUTROPHILS 83.8 % (42.8-82.8); PLATELET COUNT 249 K/MM3 (134-434); RDW 15.4 % (11.6-15.6); WHITE BLOOD COUNT 16.2 K/mm3 (4.0-10.0)
[2017-03-31 04:13] LABS: ALBUMIN 3.3 g/dl (3.4-5.0); ANION GAP 10 (8-16); BILIRUBIN,TOTAL 0.6 mg/dL (0.2-1.0); CALCIUM 9.9 mg/dL (8.5-10.1); CO2 32 mmol/L (21-32); GLUCOSE,RANDOM 141 mg/dL (74-106); MAGNESIUM 2.1 mg/dL (1.8-2.4); SGOT/AST 22 U/L (15-37); SGPT/ALT 25 U/L (12-78); TOT PROT 7.7 g/dl (6.4-8.2)
[2017-03-31 04:17] LABS: ALK PHOS 96 U/L (45-117); TROPONIN I < 0.02 ng/ml (0.00-0.05)
--- NOTE | 2017-03-31 07:23 | PDOC ---
*Physical Exam - Vital Signs Last Vital Signs Temp Pulse Resp BP Pulse Ox 98.5 F 79 18 122/82 98 03/31/17 02:20 03/31/17 06:39 03/31/17 06:39 03/31/17 06:39 03/31/17 06:39 - Physical Exam Comments: 03/31/17 07:23 Gen: Dishelved, elderly, in mild distress Neuro: Alert, oriented to self, place, time and situation, CN2-12 intact CV: RRR, no murmurs rubs or gallops Abd: Soft, nontender, normal bowel sounds Ext: 1+ pulses in both lower extremities, bilateral lower leg nonpitting edema. L leg has 4x4 cm healing ulcer on the posterior aspect of the tibia with minimal yellow fluid drainage. R leg is wrapped around the tibia, exam deferred , see Dr Fuentes's exam for description Lungs: Clear to auscultation bilaterally, normal work of breathing ED Treatment Course - LABORATORY CBC & Chemistry Diagram: 03/31/17 03:30 03/31/17 03:30 - ADDITIONAL ORDERS Additional order review: Laboratory Results 03/31/17 03:30 Sodium 137 Potassium 3.8 Chloride 95 L Carbon Dioxide 32 Anion Gap 10 BUN 24 H D Creatinine 1.0 D Creat Clearance w eGFR 53.48 Random Glucose 141 H D Calcium 9.9 Magnesium 2.1 Total Bilirubin 0.6 D AST 22 ALT 25 Alkaline Phosphatase 96 Creatine Kinase 23 L Troponin I < 0.02 B-Natriuretic Peptide 347.24 Total Protein 7.7 Albumin 3.3 L Lipase 151 03/31/17 03:30 RBC 5.58 H MCV 79.6 L MCHC 32.0 RDW 15.4 MPV 9.3 Neutrophils % 83.8 H Lymphocytes % 8.5 D Monocytes % 6.7 Eosinophils % 0.3 D Basophils % 0.7 - Medications Given in the ED: ED Medications Discontinued Medications Generic Name Dose Route Start Last Admin Trade Name Freq PRN Reason Stop Dose Admin Ondansetron HCl 4 mg 03/31/17 03:20 03/31/17 03:50 Zofran Injection IVPUSH 03/31/17 03:21 4 mg ONCE STA Administration Medical Decision Making - Medical Decision Making 03/31/17 07:26 Received sign out from Dr Fuentes. Patient is a 77F woman who was recently discharged from hospital with UTI, but was unable to take medications or take care of herself at home. White count today is 16, an increase from 8. Urine pending. Patient is afebrile, other vital signs stable and normal as well. Will likely admit to medicine. 03/31/17 08:52 UA shows 9 WBCs, rare bacteria, and 1+ blood. Will admit to medicine for UTI. *DC/Admit/Observation/Transfer Diagnosis at time of Disposition: UTI (urinary tract infection) Qualifiers: Urinary tract infection type: acute cystitis Hematuria presence: with hematuria Qualified Code(s): N30.01 - Acute cystitis with hematuria - Discharge Dispostion Condition at time of disposition: Guarded Admit: Yes - Attestations Scribe Attestion: 03/31/17 09:36 I, Dr. Chava Whipple, attest that this document has been prepared under my direction and personally reviewed by me in its entirety. I further attest, that it accurately reflects all work, treatment, procedures and medical decision -making performed by me.
[2017-03-31] MEDS ORDERED: ACETAMINOPHEN 500 MG TABLET (FP) PO ONE (07:32)
[2017-03-31] MEDS ORDERED: ACETAMINOPHEN 325 MG TABLET (FP) ONE (07:46)
[2017-03-31 07:52] LABS: URINE APPEARANCE CLEAR; URINE BILIRUBIN NEGATIVE (NEGATIVE); URINE COLOR LTYELLOW; URINE GLUCOSE (UA) NEGATIVE (NEGATIVE); URINE KETONE NEGATIVE (NEGATIVE); URINE LEUK ESTERASE NEGATIVE (NEGATIVE); URINE NITRITE NEGATIVE (NEGATIVE); URINE PROTEIN NEGATIVE (NEGATIVE); URINE UROBILINOGEN NEGATIVE mg/dL (0.2-1.0)
[2017-03-31 07:58] LABS: URINE BLOOD 1+ (NEGATIVE)
[2017-03-31 08:00] LABS: URINE BACTERIA RARE /hpf (NONE SEEN); URINE HYALINE CAST 3 /lpf; URINE MUCUS RARE; URINE RBC 1 /hpf (0-3); URINE WBC 9 /hpf (3-5)
--- NOTE | 2017-03-31 09:11 | EKG ---
Test Reason : Blood Pressure : / mmHG Vent. Rate : 082 BPM Atrial Rate : 082 BPM P-R Int : 140 ms QRS Dur : 066 ms QT Int : 358 ms P-R-T Axes : 074 -01 012 degrees QTc Int : 418 ms POOR DATA QUALITY, INTERPRETATION MAY BE ADVERSELY AFFECTED SINUS RHYTHM WITH PREMATURE ATRIAL COMPLEXES WITH ABERRANT CONDUCTION ABNORMAL ECG WHEN COMPARED WITH ECG OF 24-MAR-2017 10:30, ABERRANT CONDUCTION IS NOW PRESENT NON-SPECIFIC CHANGE IN ST SEGMENT IN LATERAL LEADS Confirmed by WILMER MILAN MD ([id number]) on 03/31/2017 9:11:01 AM Referred By: Confirmed By:WILMER MILAN MD
[2017-03-31] MEDS ORDERED: ACETAMINOPHEN WITH CODEINE 300MG/30MG TABLET PO ONE (10:19)
--- NOTE | 2017-03-31 10:19 | HP ---
Admitting History and Physical - Primary Care Physician PCP: Jorje Healy - Admission Chief Complaint: nausea History of Present Illness: 77F PMH Lymphedema in b/l lower ext, HLD, OA, colon CA s/p resection in remission presented to the ED with nausea x 1 day. Patient was discharged last night from the hospital after a 6 day admission for a UTI with proteus, C. Diff Ag+ tox-, and acute LLE cellulitis. Patient was sent home yesterday afternoon with 4 day course of levaquin to complete 10 days for complicated UTI possible pyelonephritis, 4 day course of keflex for cellulitis, and 14 day course of PO flagyl for C. Diff. Patient found by EMS in same wheelchair she was dropped off in and has not moved because she was afraid to fall. She felt nauseous as well and called EMS for help. Brought to the ED and found to have a WBC count of 16 which was 8 yesterday. Per patient she has a home health aide but did not show up yesterday since it was after 5pm when she got home. Patient lives at home alone. prior to the last admission last week, per the patient, she walked around with a walker and was able to care for herself and do all her ADLs alone. Patient denies any fever, chills, vomiting, chest pain, shortness of breath, diaphoresis, or dysuria History Source: Patient, Medical Record Limitations to Obtaining History: Clinical Condition - Past Medical History Additional Past Medical History: see HPI - Smoking History Smoking history: Never smoked Have you smoked in the past 12 months: No - Alcohol/Substance Use Hx Alcohol Use: No Home Medications - Allergies Allergies/Adverse Reactions: Allergies Allergy/AdvReac Type Severity Reaction Status Date / Time omeprazole magnesium AdvReac Intermediate Rash Verified 03/31/17 02:20 [From Prilosec] zinc AdvReac Unknown Rash Verified 03/31/17 02:20 - Home Medications Home Medications: Ambulatory Orders Furosemide [Lasix -] 40 mg PO BID 06/09/16 Simvastatin 20 mg PO DAILY 06/09/16 Lactobacillus Acidophilus [Bacid -] 1 tab PO BID tab 03/28/17 Silver Sulfadiazine 1% Top Cr [Silvadene -] 1 applic TP DAILY jar 03/28/17 Cephalexin [Keflex] 500 mg PO QID #4 capsule 03/30/17 Levofloxacin [Levaquin -] 500 mg PO DAILY #4 tablet 03/30/17 Metronidazole 500 mg PO TID #42 tablet 03/30/17 Review of Systems - Review of Systems Constitutional: reports: No Symptoms Eyes: reports: No Symptoms HENT: reports: No Symptoms Neck: reports: No Symptoms Cardiovascular: reports: No Symptoms Respiratory: reports: No Symptoms Gastrointestinal: reports: Abdominal Pain, Nausea. denies: Vomiting Genitourinary: reports: No Symptoms Breasts: reports: No Symptoms Reported Musculoskeletal: reports: No Symptoms Hematology/Lymphatic: reports: Other (swollen bilateral lower extremities- chronic) Pain Intensity: 6 Physical Examination Vital Signs: Vital Signs Temperature 98.0 F 03/31/17 07:51 Pulse Rate 80 03/31/17 07:51 Respiratory Rate 16 03/31/17 07:51 Blood Pressure 132/72 03/31/17 07:51 O2 Sat by Pulse Oximetry (%) 98 03/31/17 07:51 Constitutional: Yes: No Distress, Calm Eyes: Yes: EOM Intact HENT: Yes: Atraumatic, Normocephalic Neck: Yes: Supple, Trachea Midline Cardiovascular: Yes: Regular Rate and Rhythm Respiratory: Yes: CTA Bilaterally Gastrointestinal: Yes: Soft, Tenderness (mild/suprapubic) ...Rectal Exam: Yes: Deferred Extremities: Yes: Other (bilateral LE edema with chronic venous stasis changes.) Neurological: Yes: WNL, Alert, Oriented, Cran Nerves II-XII Intact. No: Aphasia Psychiatric: Yes: Alert, Oriented Imaging - Results Chest X-ray: Report Reviewed, Image Reviewed Assessment/Plan 77F with multiple medical problems presents to the hospital for nausea abdominal pain and inability to care forherself at home. patient lives at home alone. Problem list: Nausea abdominal pain C. 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 Diff stop keflex continue levaquin for UTI continue statin continue lasix for lymphedema pain control C. Diff PCR DVT PPx Case discussed with medical team and attending full H&P to follow. Visit type - Emergency Visit Emergency Visit: Yes ED Registration Date: 03/31/17 Care time: The patient presented to the Emergency Department on the above date and was hospitalized for further evaluation of their emergent condition. - New Patient This patient is new to me today: Yes Date on this admission: 03/31/17 - Critical Care Critical Care patient: No
--- NOTE | 2017-03-31 11:40 | HP ---
CHIEF COMPLAINT: Nausea PCP: Jorje Healy HISTORY OF PRESENT ILLNESS: 77 year old F with a PMH of significant past medical history of Lymphedema in b/ l lower ext, HLD, OA, colon CA s/p resection in remission presented to the ED with nausea and LLQ abdominal pain x 1 day. Patient was discharged last night from the hospital after 6 days for an acute UTI with proteus, C. Diff Ag+ tox-, and acute LLE cellulitis. Patient was sent home yesterday afternoon with 4 day course of levaquin, 4 day course of keflex, and 14 day course of PO flagyl. EMS dropped her home yesterday. Since yesterday, patient sat in her wheelchair all day/night because she was afraid she would fall. Patient woke up this morning having to the use restroom and felt she couldn't get up. She has home health aid come everyday, but patient was feeling nauseous and didn't want to wait until they arrived, so she called EMS. EMS found her in the same spot they had dropped her off the day before. Patient's meds had arrived to her house, but were unopened. Prior to last admission on 03/24, patient was functional at home with a walker and able to care for herself. Patient denies any fever, chills, vomiting, chest pain, shortness of breath, diaphoresis ER course was notable for: (1) UA, Labs (2) EKG, CXR (3) Zofran, Tylenol Recent Travel: no PAST MEDICAL HISTORY: As stated above PAST SURGICAL HISTORY: Partial Colectomy, Cholecystectomy, Varicose Vein Surgery 2014 Social History: Patient currently lives alone and states she can take care of herself Smoking: No Alcohol: No Drugs: No Family History: Allergies omeprazole magnesium [From Prilosec] Adverse Reaction (Intermediate, Verified 02:20) Rash zinc Adverse Reaction (Unknown, Verified 03/31/17 02:20) Rash HOME MEDICATIONS: Home Medications Medication Instructions Recorded Furosemide [Lasix -] 40 mg PO BID 06/09/16 Simvastatin 20 mg PO DAILY 06/09/16 Lactobacillus Acidophilus [Bacid -] 1 tab PO BID tab 03/28/17 Silver Sulfadiazine 1% Top Cr 1 applic TP DAILY jar 03/28/17 [Silvadene -] Cephalexin [Keflex] 500 mg PO QID #4 capsule 03/30/17 Levofloxacin [Levaquin -] 500 mg PO DAILY #4 tablet 03/30/17 Metronidazole 500 mg PO TID #42 tablet 03/30/17 REVIEW OF SYSTEMS CONSTITUTIONAL: Absent: fever, chills, diaphoresis, generalized weakness, malaise, loss of appetite, weight change HEENT: Absent: rhinorrhea, nasal congestion, throat pain, throat swelling, difficulty swallowing, mouth swelling, ear pain, eye pain, visual changes CARDIOVASCULAR: Absent: chest pain, syncope, palpitations, irregular heart rate, lightheadedness Present: peripheral edema RESPIRATORY: Absent: cough, shortness of breath, dyspnea with exertion, orthopnea, wheezing, stridor, hemoptysis GASTROINTESTINAL: Absent: abdominal distension, vomiting, diarrhea, constipation, melena, hematochezia Present: nausea, abdominal pain GENITOURINARY: Absent: dysuria, frequency, urgency, hesitancy, hematuria, flank pain, genital pain MUSCULOSKELETAL: Absent: myalgia, arthralgia, joint swelling, back pain, neck pain SKIN: Absent: rash, itching, pallor HEMATOLOGIC/IMMUNOLOGIC: Absent: easy bleeding, easy bruising, lymphadenopathy, frequent infections ENDOCRINE: Absent: unexplained weight gain, unexplained weight loss, heat intolerance, cold intolerance NEUROLOGIC: Absent: headache, focal weakness or paresthesias, dizziness, unsteady gait, seizure, mental status changes, bladder or bowel incontinence PSYCHIATRIC: Absent: anxiety, depression, suicidal or homicidal ideation, hallucinations. PHYSICAL EXAMINATION GENERAL: Awake, alert, and fully oriented, in no acute distress. HEAD: Normal with no signs of trauma. EYES: extraocular movements intact, sclera anicteric, conjunctiva clear. No lid lag. EARS, NOSE, THROAT:oropharynx clear without exudates. Moist mucous membranes. NECK: Normal range of motion, supple without lymphadenopathy, JVD, or masses. LUNGS: Breath sounds equal, clear to auscultation bilaterally. No wheezes, and no crackles. No accessory muscle use. HEART: Regular rate and rhythm, normal S1 and S2 without murmur, rub or gallop. ABDOMEN: Soft, LLQ mild tenderness, not distended, normoactive bowel sounds, no guarding, no rebound, no masses. No hepatomegaly or splenomegaly. UPPER EXTREMITIES: 2+ radial pulses, warm, well-perfused. No cyanosis. No clubbing. No peripheral edema. LOWER EXTREMITIES: Diffuse bilateral lymphedema, Legs currently wrapped, Slightly hyperkeratotic with stasis changes, No erythema, No calf tenderness, 2 + DP pulses NEUROLOGICAL: Cranial nerves II-XII intact. Normal speech. Normal gait. PSYCHIATRIC: Cooperative. Good eye contact. Appropriate mood and affect. ASSESSMENT/PLAN: 77 yo F with PMHx of Lymphedema in BLLE, HLD, OA, CRC s/p resection in remission , who presented to ER with 1 day hx of nausea and nausea s/p being discharged yesterday. Patient was found to have a leukocytosis of 16.2 in the ED #. Acute UTI with Proteus -D/c on course of PO levaquin for 4 more days -Missed 1 dose due to not taking meds -Leukocytosis back up to 16.2 from 8.5 -Will restart PO levaquin 500 mg PO daily to complete course -F/U Urine culture #C. Diff Colitis -D/c on course of PO flagyl for 14 days -Will give IV flagyl 500 mg Q8, hold PO flagyl for now due to nausea -Will do C Diff PCR as well as repeat ag and toxin #. L/E lymphedema -Chronic issue -Pt is well known to wound care clinic, has lymphedema pump at home -Continue Silver sulfadiazine and wraps -Continue lasix 40 mg BID #History of HTN- well controlled -Continue lasix 40 mg BID #HLD -Patient takes simvastatin at home -Start Lipitor 10 mg PO hs, simvastatin not on formulary. This is the equivalent dose. #DVT ppx -Heparin 5000 units BID -No SCDs due to LE lymphedema #Deconditioning ppx -Physical therapy evaluation #FEN/GI -No IVF at this time -No electrolyte abnormalities -Patient is on Sodium diet #Dispo -Pending social work and caseworker -Patient's functional status has changed since prior to previous admission. We believe it is unsafe for her to go back home by herself at this time. Visit type - Emergency Visit Emergency Visit: No - New Patient This patient is new to me today: Yes Date on this admission: 03/31/17 - Critical Care Critical Care patient: No
[2017-03-31] MEDS ORDERED: metroNIDAZOLE 500 MG TABLET PO SCH (14:00)
[2017-03-31] MEDS: LEVOFLOXACIN 500 MG TABLET (FP) PO SCH (15:06)
[2017-03-31] MEDS: METRONIDAZOLE 500 MG PREMIXED 100 ML IVPB SCH (17:39)
[2017-03-31] MEDS: FUROSEMIDE 40 MG TABLET (FP) PO SCH (21:54)
[2017-03-31] MEDS: ATORVASTATIN CA 10 MG TABLET (FP) PO SCH (21:54)
[2017-03-31] MEDS: HEPARIN NA (PORCINE) 5,000 UNITS/ML 1ML VIAL SQ SCH (21:54)
[2017-04-01] MEDS: METRONIDAZOLE 500 MG PREMIXED 100 ML IVPB SCH ×2 (02:19→10:52)
[2017-04-01] MEDS: FUROSEMIDE 40 MG TABLET (FP) PO SCH ×2 (06:02→15:14)
[2017-04-01 07:32] LABS: MCH 26.5 pg (25.7-33.7); MEAN CELL VOLUME 80.2 fl (80-96); MEAN PLT VOLUME 9.8 fl (7.5-11.1); PLATELET COUNT 183 K/MM3 (134-434); RDW 15.3 % (11.6-15.6); WHITE BLOOD COUNT 8.4 K/mm3 (4.0-10.0)
[2017-04-01 07:53] LABS: ALBUMIN 2.4 g/dl (3.4-5.0); ANION GAP 6 (8-16); CALCIUM 8.9 mg/dL (8.5-10.1); CO2 32 mmol/L (21-32); GLUCOSE,RANDOM 83 mg/dL (74-106)
[2017-04-01 07:56] LABS: ALK PHOS 70 U/L (45-117); BILIRUBIN,TOTAL 0.4 mg/dL (0.2-1.0); CREATININE 0.6 mg/dL (0.55-1.02); PHOSPHOROUS 2.3 mg/dL (2.5-4.9); SGOT/AST 17 U/L (15-37); SGPT/ALT 15 U/L (12-78); TOT PROT 5.8 g/dl (6.4-8.2)
[2017-04-01] MEDS ORDERED: PT OWN MED DRAWER 7, Y5N ONE (10:22)
[2017-04-01] MEDS: LEVOFLOXACIN 500 MG TABLET (FP) PO SCH (10:51)
[2017-04-01] MEDS: SILVER SULFADIAZINE 1% TOP CREAM 50 GM JAR TP SCH (10:52)
[2017-04-01] MEDS: HEPARIN NA (PORCINE) 5,000 UNITS/ML 1ML VIAL SQ SCH ×2 (10:52→22:38)
--- NOTE | 2017-04-01 12:19 | PN ---
Physical Exam: SUBJECTIVE: Patient seen and examined this AM. No new complaints. No longer has nausea, no longer feels weak. She feels back to normal. The patient had one BM yesterday, unsure it if was formed or not. OBJECTIVE: Vital Signs Period Temp Pulse Resp BP Sys/Douglas Pulse Ox Last 24 Hr 98 F-99.5 F 75-108 18-20 106-124/51-67 97 GENERAL: The patient is awake, alert, and fully oriented, in no acute distress. EYES: PERRL, extraocular movements intact LUNGS: Breath sounds equal, clear to auscultation bilaterally, no wheezes, no crackles HEART: Regular rate and rhythm, S1, S2 without murmur, rub or gallop. ABDOMEN: Soft, nondistended, slight discomfort on palpation, able to feel ventral hernia, normo/hyperactive bowel sounds UPPER EXTREMITIES: 2+ pulses, warm, well-perfused, no edema. LOWER EXTREMITIES: Diffuse bilateral lymphedema with scaling + stasis changes, LLE mildly eryhtematous than right, nontender, improving, much better than presentation NEUROLOGICAL: Cranial nerves II through XII grossly intact. Normal speech, gait not observed. Laboratory Results - last 24 hr 04/01/17 04/01/17 06:00 06:00 WBC 8.4 D RBC 4.54 Hgb 12.0 D Hct 36.4 D MCV 80.2 MCH 26.5 MCHC 33.0 RDW 15.3 Plt Count 183 D MPV 9.8 Sodium 140 Potassium 3.6 Chloride 102 Carbon Dioxide 32 Anion Gap 6 L BUN 16 D Creatinine 0.6 D Creat Clearance w eGFR > 60 Random Glucose 83 D Calcium 8.9 Phosphorus 2.3 L Magnesium 2.0 Total Bilirubin 0.4 D AST 17 D ALT 15 D Alkaline Phosphatase 70 D Total Protein 5.8 L D Albumin 2.4 L D Active Medications Generic Name Dose Route Start Last Admin Trade Name Freq PRN Reason Stop Dose Admin Atorvastatin Calcium 10 mg 03/31/17 22:00 03/31/17 21:54 Lipitor - PO 10 mg HS RAMAN Administration Furosemide 40 mg 03/31/17 22:00 04/01/17 06:02 Lasix - PO 40 mg BIDLASIX RAMAN Administration Heparin Sodium (Porcine) 5,000 unit 03/31/17 22:00 04/01/17 10:52 Heparin - SQ 5,000 unit BID RAMAN Administration Metronidazole 100 mls @ 100 mls/hr 03/31/17 18:00 04/01/17 10:52 Flagyl 500mg Premixed Ivpb - IVPB 100 mls/hr Q8H-IV RAMAN Administration Levofloxacin 500 mg 03/31/17 12:00 04/01/17 10:51 Levaquin - PO 04/03/17 10:01 500 mg DAILY RAMAN Administration Silver Sulfadiazine 1 applic 04/01/17 10:00 04/01/17 10:52 Silvadene - TP 1 applic DAILY RAMAN Administration ASSESSMENT/PLAN: 77 yo F with PMHx of Lymphedema in BLLE, HLD, OA, CRC s/p resection in remission , who presented to ER with 1 day hx of nausea and nausea s/p being discharged yesterday. Patient was found to have a leukocytosis of 16.2 in the ED. # Leukocytosis - resolved - At previous discharge, WBC was 8.5, and was 16.2 on admission. Pt does not appear to be infected, will re-check urine cultures, and check Cdiff panel PCR. If no infection is detected, could be due to stress reaction from being nauseous. WBC count is back down to 8.4 today # R/o C. Diff Colitis - During the previous admission, the patient had diarrhea for 2 days, and on discharge was more formed. C.diff antigen was positive, toxinw as negative, just to cover, we discharged her on PO flagyl for 14 days. - Patient is not having recurrent wattery diarrhea at this moment, but will r/o C.diff with PCR -Will give IV flagyl 500 mg Q8 # Acute UTI with Proteus - During the previous admission, the patient had acute UTI with proteus. She was discharged on course of PO levaquin for 4 more days. She missed one dose, and we will restart her back on PO levaquin 500mg PO for 4 more days (until 04/04 ) - Will recheck urine cultures # L/E lymphedema - Pt is well known to wound care clinic, has lymphedema pump at home, we will continue Silver sulfadiazine and wraps #History of HTN- well controlled - Continue lasix 40 mg BID #HLD - Patient takes simvastatin at home - Start Lipitor 10 mg PO hs, simvastatin not on formulary. This is the equivalent dose. #Prophylaxis - DVT: Heparin 5000 units BID, no SCDs due to LE lymphedema - GI: Not needed at this time - Deconditioning: PT eval #FEN - Fluids: No IVF at this time - Electrolyte: No electrolyte abnormalities - Nutrition: Patient is on Sodium diet #Dispo - Will r/o C.diff and urine cultures prior to discharge Visit type - Emergency Visit Emergency Visit: No - New Patient This patient is new to me today: No - Critical Care Critical Care patient: No - Discharge Referral Referred to [facility] Med [facility].C[facility] No
--- NOTE | 2017-04-01 12:47 | PN ---
Teaching Attending Note Name of Resident: Jeffrey Lema ATTENDING PHYSICIAN STATEMENT I saw and evaluated the patient. I reviewed the resident's note and discussed the case with the resident. I agree with the resident's findings and plan as documented. SUBJECTIVE: no fever or chills, no nausea , no REGALADO or change in vision . no abd pain. Reported feeling generalized weakness and was afraid to fall , which is why she did not move from her chair yesterday. denies any diarrhea , or abd pain. OBJECTIVE: NAD , AAOx3 CV: RRR, no MRG Lungs: CTAB Abd : Soft, NT, ND , NL BS . Ext:compared to previous exam, edema and erythema on lower legs has much improved , small abrasions seen also improved . DP 2+ bilaterally ASSESSMENT AND PLAN: 77 y/o lady with h/o Lymphedema , OA , Colon ca s/p remission, recent hospitalization for cellulitis and UTI , who resented one day after her dc with nausea sn generalized weakness . 1- Nausea, and generalized weakness: resolved . benign ABd exam. WBC has normalized, and vitals are stable 2- Recent UTI with sepsis : cont levaquin for 3 more days symptoms resolved 3- Diarrhea , has resolved . WBC has normalized . - follow pCR, if neg will dc ABx - cont flagyl for now dispo: need placement
[2017-04-01] MEDS ORDERED: NAPH,MB-DB/K PH,MBDB POWDER PACKET PO ONE ×2 (15:47→18:00)
[2017-04-01] MEDS: metroNIDAZOLE 250 MG TABLET PO SCH (18:08)
[2017-04-01] MEDS: ATORVASTATIN CA 10 MG TABLET (FP) PO SCH (22:38)
[2017-04-02] MEDS: metroNIDAZOLE 250 MG TABLET PO SCH ×3 (02:00→18:00)
[2017-04-02] MEDS: FUROSEMIDE 40 MG TABLET (FP) PO SCH ×2 (05:31→14:41)
[2017-04-02] MEDS: SILVER SULFADIAZINE 1% TOP CREAM 50 GM JAR TP SCH (09:59)
[2017-04-02] MEDS: LEVOFLOXACIN 500 MG TABLET (FP) PO SCH (10:00)
[2017-04-02] MEDS: HEPARIN NA (PORCINE) 5,000 UNITS/ML 1ML VIAL SQ SCH ×2 (10:00→21:28)
--- NOTE | 2017-04-02 14:19 | PN ---
Progress Note (short form) - Note Progress Note: Subjective: no fever or chills, mild abd discomfort , had a big loose BM yesterday evening , but no watery diarrhea Objective: Vital Signs: Last Vital Signs Temp Pulse Resp BP Pulse Ox 98.6 F 84 18 100/52 97 04/02/17 09:55 04/02/17 09:55 04/02/17 09:55 04/02/17 09:55 04/02/17 09:55 Physical Exam: NAD , AAOx3 CV: RRR, no MRG Lungs: CTAB Abd : Soft, minimal TTP in LLQ, ND , NL BS . Ext:, edema and erythema on lower legs has much improved , small abrasions seen also improved . DP 2+ bilaterally ASSESSMENT AND PLAN: 77 y/o lady with h/o Lymphedema , OA , Colon ca s/p remission, recent hospitalization for cellulitis and UTI , who resented one day after her dc with nausea sn generalized weakness . 1- Nausea, and generalized weakness: resolved . WBC has normalized, and vitals are stable 2- Recent UTI with sepsis : cont levaquin for 2 more days only symptoms resolved urine cx with < 10 k colonies with group G strep. No significance 3- Diarrhea, with positive C diff Ag,, neg toxin . WBC has normalized . - follow pCR, if neg will dc ABx - cont flagyl for now - repeat CBC in am Dispo: needs placement , otherwise medically stable Visit type - Emergency Visit Emergency Visit: Yes ED Registration Date: 03/31/17 Care time: The patient presented to the Emergency Department on the above date and was hospitalized for further evaluation of their emergent condition. - New Patient This patient is new to me today: No - Critical Care Critical Care patient: No
[2017-04-02] MEDS: ATORVASTATIN CA 10 MG TABLET (FP) PO SCH (21:27)
[2017-04-02] MEDS ORDERED: ACETAMINOPHEN 325 MG TABLET (FP) PO ONE (22:25)
[2017-04-03] MEDS: metroNIDAZOLE 250 MG TABLET PO SCH ×3 (02:54→18:22)
[2017-04-03] MEDS: FUROSEMIDE 40 MG TABLET (FP) PO SCH ×2 (05:23→15:25)
[2017-04-03 08:06] LABS: BASOPHIL 0.9 % (0-2.0); EOSINOPHIL 2.3 % (0-4.5); MCH 26.5 pg (25.7-33.7); MEAN CELL VOLUME 80.4 fl (80-96); MEAN PLT VOLUME 10.4 fl (7.5-11.1); NEUTROPHILS 71.4 % (42.8-82.8); PLATELET COUNT 224 K/MM3 (134-434); RDW 15.9 % (11.6-15.6); WHITE BLOOD COUNT 8.5 K/mm3 (4.0-10.0)
[2017-04-03] MEDS ORDERED: METOCLOPRAMIDE HCL 10 MG TABLET (FP) PO PRN (08:10)
[2017-04-03 08:28] LABS: ANION GAP 8 (8-16); CALCIUM 9.1 mg/dL (8.5-10.1); CO2 31 mmol/L (21-32); CREATININE 0.7 mg/dL (0.55-1.02); GLUCOSE,RANDOM 94 mg/dL (74-106)
[2017-04-03] MEDS: HEPARIN NA (PORCINE) 5,000 UNITS/ML 1ML VIAL SQ SCH (10:58)
[2017-04-03] MEDS: LEVOFLOXACIN 500 MG TABLET (FP) PO SCH (10:58)
[2017-04-03] MEDS: SILVER SULFADIAZINE 1% TOP CREAM 50 GM JAR TP SCH (10:59)
[2017-04-03] MEDS ORDERED: ACETAMINOPHEN 325 MG TABLET (FP) PO ONE (15:07)
--- NOTE | 2017-04-03 17:19 | DS ---
Physical Exam: SUBJECTIVE: Patient seen and examined this AM. Patient has positional neck pain , improved when readjusted pillows. No fevers, no chills, no chest pain, no SOB. OBJECTIVE: Vital Signs Period Temp Pulse Resp BP Sys/Douglas Pulse Ox Last 24 Hr 98.3 F-99.0 F 80-96 18-20 105-132/52-67 94-96 PHYSICAL EXAM GENERAL: The patient is awake, alert, and fully oriented, in no acute distress. EYES: PERRL, extraocular movements intact LUNGS: Breath sounds equal, clear to auscultation bilaterally, no wheezes, no crackles HEART: Regular rate and rhythm, S1, S2 without murmur, rub or gallop. ABDOMEN: Soft, nondistended, slight discomfort on palpation, able to feel ventral hernia, normo/hyperactive bowel sounds UPPER EXTREMITIES: 2+ pulses, warm, well-perfused, no edema. LOWER EXTREMITIES: Diffuse bilateral lymphedema with scaling + stasis changes, LLE mildly eryhtematous than right, nontender, improving, much better than presentation NEUROLOGICAL: Cranial nerves II through XII grossly intact. Normal speech, gait not observed. LABS Laboratory Results - last 24 hr 04/03/17 04/03/17 06:40 06:40 WBC 8.5 RBC 5.06 Hgb 13.4 D Hct 40.7 MCV 80.4 MCH 26.5 MCHC 33.0 RDW 15.9 H Plt Count 224 D MPV 10.4 Neutrophils % 71.4 Lymphocytes % 18.0 D Monocytes % 7.4 Eosinophils % 2.3 D Basophils % 0.9 Sodium 137 Potassium 3.8 Chloride 98 Carbon Dioxide 31 Anion Gap 8 BUN 16 Creatinine 0.7 Random Glucose 94 Calcium 9.1 HOSPITAL COURSE: Date of Admission:03/31/17 Date of Discharge: 04/03/17 77 yo F with PMHx of Lymphedema in BLLE, HLD, OA, CRC s/p resection in remission , who was a bounceback, and presented to ER with 1 day hx of nausea and nausea s /p being discharged yesterday. Patient was found to have a leukocytosis of 16.2 in the ED # R/o C. Diff Colitis - The patient's initial leukocytosis was thought to be due to possible C.diff colitis, however patient is not having wattery diarrhea. We will continue to wait for the C.diff PCR and continue empiric treatment with PO Flagyl for 11 more days. # Acute UTI with Proteus - The patient finished a 10 day course of Levaquin. New urine cultures showed Group D Strep or Enterococcus which is insignificant. # Hx of LE lymphedema - The patient has a chronic history of lymphedema, we continued Silver sulfadiazine and wraps # Nausea - Patient has baseline nausea, unsure of the etiology, we started her on PO Reglan PRN. #Other History of HTN - The patient's blood pressure has been stable throughout this hospitalization. We continued lasix 40 mg BID HLD - We started her on an equivalent formulary dose of her home statin The patient was made aware of the plan and hospital course. The patient will be transferred to [facility] Minutes to complete discharge: 55 Discharge Summary Reason For Visit: UTI Current Active Problems Acute diarrhea (Acute) UTI (urinary tract infection) (Acute) Condition: Guarded - Instructions Diet, Activity, Other Instructions: You were admitted because you were unable to get up from the wheelchair when we discharged you last week. We gave you antibiotics for your Urinary Tract Infection, which you completed. Since you were having diarrhea, we ordered a test to see if you have a bacterial toxin that causes infectious diarrhea, and it will come back Monday. In the mean time, we are placing you on antibiotics for it, and will discontinue the antibiotics if the test comes back negative. The antibiotic is Flagyl 500mg every 8 hours. If the test comes back positive, please continue taking the medication for 11 more days. Because we feel that you need more time to recover before you go home, we will send you to a subacute rehabilitation facility. Please follow up with your Primary Care Doctor in 1 week. If you have any serious symptoms please return to the Emergency Department Referrals: Jorje Healy MD [Staff Physician] - 1 Week Gregorio Paniagua MD [Staff Physician] - Disposition: [facility] - Home Medications Comprehensive Discharge Medication List: Ambulatory Orders Furosemide [Lasix -] 40 mg PO BID 06/09/16 Simvastatin 20 mg PO DAILY 06/09/16 Lactobacillus Acidophilus [Bacid -] 1 tab PO BID tab 03/28/17 Silver Sulfadiazine 1% Top Cr [Silvadene -] 1 applic TP DAILY jar 03/28/17 Acetaminophen [Acetaminophen 8 Hour] 650 mg PO Q8H PRN #20 tablet.er 04/03/17 Metoclopramide HCl [Reglan] 10 mg PO ACHS PRN #20 tablet 04/03/17 Metronidazole [Flagyl -] 500 mg PO Q8H #33 tablet 04/03/17 This patient is new to me today: No Emergency Visit: No Critical Care patient: No - Discharge Referral Referred to [facility] No
[2017-04-03 18:59] VITALS: BP 122/63; PULSE 92; TEMP 98.9
--- NOTE | 2017-04-03 19:04 | PN ---
Teaching Attending Note Name of Resident: Jeffrey Lema ATTENDING PHYSICIAN STATEMENT I saw and evaluated the patient. I reviewed the resident's note and discussed the case with the resident. I agree with the resident's findings and plan as documented. Patient stable and discharged to [facility] for continued care.
== END 2017-04-03 19:51 | DRG 690 ==
LOC: JER 02:15 → JERBED 09:37 → J7W 11:24
PROVIDERS: ADMIT Internal Medicine; ATTEND Internal Medicine
DX: N39.0 Urinary tract infection, site not specified (principal); A04.7 Enterocolitis due to Clostridium difficile; B96.4 Proteus (mirabilis) (morganii) as the cause of diseases classified elsewhere; R11.0 Nausea; D72.829 Elevated white blood cell count, unspecified; I89.0 Lymphedema, not elsewhere classified; E78.5 Hyperlipidemia, unspecified; I10 Essential (primary) hypertension; M19.90 Unspecified osteoarthritis, unspecified site
CPT/HCPCS: 36415; 71010-TC; 80048; 80053; 81003; 81015; 82550; 83690; 83735; 83880; 84100; 84484; 85025; 85027; 87086; 87186; 87324; 87449; 87493; 93005; 93010; 97116-GP; 97161-GP; 99285-25; J1644

== ENCOUNTER 2017-04-25 23:28 | Inpatient (IN) | payer OTHER ==
--- NOTE | 2017-04-25 23:39 | PDOC ---
History of Present Illness - General History Source: Patient Exam Limitations: No Limitations - History of Present Illness Initial Comments: 04/26/17 00:21 The patient is a 77 year old female from [facility], with a significant past medical history of HLD, wound care, colon cancer who presents to the emergency department with positive DVT in RLE. Patient was sent in from [facility] for further evaluation of DVT. Patient has no physical complaints as it appears patient is demented. She denies chest pain, headache or dizziness. She denies fever, chills, abdominal pain, nausea, vomit, diarrhea or constipation. She denies dysuria, frequency, urgency or hematuria. Allergies: omeprazole magnesium zinc Past surgical history: Colectomy, cholecysteomy Social history:None PCP: Dr. Mccarthy <Bia Reid - Last Filed: 04/26/17 01:55> - General History Source: [facility] <Joe Fuentes - Last Filed: 04/26/17 19:23> - General Stated Complaint: POSSIBLE DVT Time Seen by Provider: 04/25/17 23:36 Past History <Bia Reid - Last Filed: 04/26/17 01:55> - Past Medical History Anemia: No Asthma: No Cancer: Yes (COLON) Cardiac Disorders: No CVA: No COPD: No CHF: No Dementia: No Diabetes: No GI Disorders: No (H/O COLON CA) Disorders: No HTN: No Hypercholesterolemia: Yes Liver Disease: No Seizures: No Thyroid Disease: No - Surgical History Abdominal Surgery: Yes (COLECTOMY) Appendectomy: No Cardiac Surgery: No Cholecystectomy: Yes (06/01) Lung Surgery: No Neurologic Surgery: No Orthopedic Surgery: No - Psycho/Social/Smoking Cessation Hx Anxiety: No Suicidal Ideation: No Smoking History: Never smoked Have you smoked in the past 12 months: No Hx Alcohol Use: No Drug/Substance Use Hx: No Substance Use Type: None Hx Substance Use Treatment: No <Joe Fuentes - Last Filed: 04/26/17 19:23> - Past Medical History Allergies/Adverse Reactions: Allergies Allergy/AdvReac Type Severity Reaction Status Date / Time omeprazole magnesium AdvReac Intermediate Rash Verified 04/25/17 23:46 [From Prilosec] zinc AdvReac Unknown Rash Verified 04/25/17 23:46 Home Medications: Ambulatory Orders Furosemide [Lasix -] 40 mg PO BIDAC 06/09/16 Simvastatin 20 mg PO HS 06/09/16 Acetaminophen [Acetaminophen 8 Hour] 650 mg PO Q8H PRN #20 tablet.er 04/03/17 Lactobacillus Acidophilus [Bacid -] 1 each PO BIDAC 04/26/17 Metoclopramide HCl [Reglan] 10 mg PO Q6H PRN 04/26/17 Review of Systems - Review of Systems Able to Perform ROS?: Yes Comments:: 04/26/17 00:21 Unable to obtain ROS due to patient's clinical condition. <Bia Reid - Last Filed: 04/26/17 01:55> *Physical Exam - Physical Exam Comments: 04/26/17 00:21 GENERAL: Awake, alert, and fully oriented, in no acute distress HEAD: No signs of trauma EYES: PERRLA, EOMI, sclera anicteric, conjunctiva clear ENT: Auricles normal inspection, hearing grossly normal, nares patent, oropharynx clear without exudates. Moist mucosa NECK: Normal ROM, supple, no lymphadenopathy, JVD, or masses LUNGS: Breath sounds equal, clear to auscultation bilaterally. No wheezes, and no crackles HEART: Regular rate and rhythm, normal S1 and S2, no murmurs, rubs or gallops ABDOMEN: Soft, nontender, normoactive bowel sounds. No guarding, no rebound. No masses EXTREMITIES: Normal range of motion, no edema. No clubbing or cyanosis. No cords, erythema. +Minimal calf tenderness. NEUROLOGICAL: Cranial nerves II through XII grossly intact. Normal speech, normal gait SKIN: Warm, Dry, normal turgor, no rashes or lesions noted. <Bia Reid - Last Filed: 04/26/17 01:55> ED Treatment Course - LABORATORY CBC & Chemistry Diagram: 04/26/17 00:25 04/26/17 00:25 <Bia Reid - Last Filed: 04/26/17 01:55> - LABORATORY CBC & Chemistry Diagram: 04/26/17 00:25 04/26/17 00:25 <Joe Fuentes - Last Filed: 04/26/17 19:23> Medical Decision Making - Medical Decision Making 04/25/17 23:41 Dr. Mccarthy called via phone answering service. Awaiting call back. 04/25/17 23:59 Dr. Mccarthy called via phone answering service. Awaiting call back. <Bia eRid - Last Filed: 04/26/17 01:55> - Medical Decision Making 04/26/17 19:23 Dr. Fuentes: The scribe's documentation has been prepared under my direction and personally reviewed by me in its entirery. I confirm that the note above accurately reflects all work, treatment, procedures, and medical decision making performed by me. <Joe Fuentes - Last Filed: 04/26/17 19:23> *DC/Admit/Observation/Transfer - Attestations Scribe Attestion: 04/26/17 00:22 Documentation prepared by Bia Reid, acting as medical technologist hematology for Joe Fuentes MD/. <Bia Reid - Last Filed: 04/26/17 01:55> - Discharge Dispostion Admit: Yes <Joe Fuentes - Last Filed: 04/26/17 19:23> Diagnosis at time of Disposition: Right leg DVT Qualifiers: Affected thrombotic vein of extremity: other lower extremity vein Chronicity: acute Qualified Code(s): I82.491 - Acute embolism and thrombosis of other specified deep vein of right lower extremity - Referrals
[2017-04-26] MEDS ORDERED: METOCLOPRAMIDE HCL 10 MG TABLET (FP) PO PRN (00:27)
[2017-04-26 00:43] LABS: BASOPHIL 0.4 % (0-2.0); EOSINOPHIL 1.8 % (0-4.5); MCH 26.7 pg (25.7-33.7); MCHC 32.7 g/dl (32.0-36.0); MEAN CELL VOLUME 81.4 fl (80-96); MEAN PLT VOLUME 9.1 fl (7.5-11.1); NEUTROPHILS 76.4 % (42.8-82.8); PLATELET COUNT 230 K/MM3 (134-434); WHITE BLOOD COUNT 11.6 K/mm3 (4.0-10.0)
[2017-04-26 00:59] LABS: INR 1.04 (0.82-1.09); PROTHROMBIN TIME (PATIENT) 11.5 SEC (9.98-11.88)
[2017-04-26 01:01] LABS: ACTIVATED PTT 30.5 SECONDS (26.9-34.4)
[2017-04-26 01:09] LABS: ALBUMIN 2.7 g/dl (3.4-5.0); ANION GAP 9 (8-16); BILIRUBIN,TOTAL 0.3 mg/dL (0.2-1.0); CALCIUM 9.1 mg/dL (8.5-10.1); CO2 32 mmol/L (21-32); CREATININE 0.6 mg/dL (0.55-1.02); GLUCOSE,RANDOM 105 mg/dL (74-106); SGOT/AST 14 U/L (15-37); SGPT/ALT 16 U/L (12-78)
[2017-04-26 01:10] LABS: ALK PHOS 77 U/L (45-117)
[2017-04-26] MEDS ORDERED: metroNIDAZOLE 250 MG TABLET ONE (02:50)
[2017-04-26] MEDS: metroNIDAZOLE 250 MG TABLET PO SCH ×3 (02:54→14:00)
[2017-04-26] MEDS: ENOXAPARIN NA (PORCINE) 80 MG/0.8 ML DISP.SYRIN SQ SCH ×3 (02:54→21:02)
[2017-04-26 03:28] LABS: URINE APPEARANCE CLEAR; URINE BILIRUBIN NEGATIVE (NEGATIVE); URINE BLOOD NEGATIVE (NEGATIVE); URINE COLOR LTYELLOW; URINE GLUCOSE (UA) NEGATIVE (NEGATIVE); URINE KETONE NEGATIVE (NEGATIVE); URINE LEUK ESTERASE NEGATIVE (NEGATIVE); URINE NITRITE NEGATIVE (NEGATIVE); URINE PROTEIN NEGATIVE (NEGATIVE); URINE UROBILINOGEN NEGATIVE mg/dL (0.2-1.0)
[2017-04-26 05:02] VITALS: BMI 26.6
[2017-04-26] MEDS: ACETAMINOPHEN 325 MG TABLET (FP) PO PRN ×2 (05:09→20:46)
[2017-04-26] MEDS: FUROSEMIDE 40 MG TABLET (FP) PO SCH ×2 (05:09→15:02)
[2017-04-26] MEDS: LACTOBACILLUS ACIDOPHILUS 1 EACH TAB (FP) PO SCH ×2 (09:38→21:02)
[2017-04-26] MEDS: PANTOPRAZOLE 40 MG TABLET (FP) PO SCH (09:38)
--- NOTE | 2017-04-26 10:52 | HP ---
Admitting History and Physical - Admission History of Present Illness: 77 year old female from [facility], with a significant past medical history of HLD , wound care, colon cancer who presents to the emergency department with positive DVT in RLE. Patient was sent in from [facility] for further evaluation of DVT. Patient has no physical complaints as it appears patient is demented. She denies chest pain, headache or dizziness. She denies fever, chills, abdominal pain, nausea, vomit, diarrhea or constipation. She denies dysuria, frequency, urgency or hematuria. - Past Medical History Cardiovascular: Yes: Hyperlipdemia Gastrointestinal: Yes: Cancer (colon) ...: No Heme/Onc: Yes: Cancer (colon), Hypercoaguable State - Advance Directives Advance Directives: Yes: Living Will, Health Care Proxy - Smoking History Smoking history: Never smoked Have you smoked in the past 12 months: No - Alcohol/Substance Use Hx Alcohol Use: No Home Medications - Allergies Allergies/Adverse Reactions: Allergies Allergy/AdvReac Type Severity Reaction Status Date / Time omeprazole magnesium AdvReac Intermediate Rash Verified 04/25/17 23:46 [From [facility] [place]] zinc AdvReac Unknown Rash Verified 04/25/17 23:46 - Home Medications Home Medications: Ambulatory Orders Furosemide [Lasix -] 40 mg PO BIDAC 06/09/16 Simvastatin 20 mg PO HS 06/09/16 Acetaminophen [Acetaminophen 8 Hour] 650 mg PO Q8H PRN #20 tablet.er 04/03/17 Lactobacillus Acidophilus [Bacid -] 1 each PO BIDAC 04/26/17 Metoclopramide HCl [Reglan] 10 mg PO Q6H PRN 04/26/17 Review of Systems - Review of Systems Cardiovascular: denies: Chest Pain, Palpitations Respiratory: reports: No Symptoms. denies: SOB, SOB on Exertion Gastrointestinal: denies: Abdominal Pain Musculoskeletal: reports: Extremity Pain, Muscle Weakness Physical Examination Vital Signs: Vital Signs Temperature 98.9 F 04/26/17 10:00 Pulse Rate 84 04/26/17 10:00 Respiratory Rate 20 04/26/17 10:00 Blood Pressure 121/66 04/26/17 10:00 O2 Sat by Pulse Oximetry (%) 96 04/26/17 04:28 Cardiovascular: Yes: Regular Rate and Rhythm Respiratory: Yes: Regular, CTA Bilaterally Gastrointestinal: Yes: Normal Bowel Sounds, Soft. No: Tenderness Extremities: Yes: Calf Tenderness Edema: Yes Edema: LLE: Trace, RLE: Trace Labs: CBC, BMP 04/26/17 00:25 04/26/17 00:25 Imaging - Results Ultrasound: Report Reviewed Problem List - Problems (1) Right leg DVT Assessment/Plan: [facility] Code(s): I82.401 - ACUTE EMBOLISM AND THOMBOS UNSP DEEP VEINS OF R LOW EXTREM Qualifiers: Affected thrombotic vein of extremity: other lower extremity vein Chronicity: acute Qualified Code(s): I82.491 - Acute embolism and thrombosis of other specified deep vein of right lower extremity (2) Colon cancer Assessment/Plan: ONCOLOGY CONSULT Code(s): C18.9 - MALIGNANT NEOPLASM OF COLON, UNSPECIFIED (3) Hyperlipidemia Assessment/Plan: ON STATIN Code(s): E78.5 - HYPERLIPIDEMIA, UNSPECIFIED (4) Leukocytosis Assessment/Plan: AWAIT CULTURES Code(s): D72.829 - ELEVATED WHITE BLOOD CELL COUNT, UNSPECIFIED
--- NOTE | 2017-04-26 13:41 | CONSULT ---
Consult Consult Specialty:: Hematology/Oncology Reason for Consultation:: DVT - History of Present Illness History of Present Illness: is a 77 year old woman resides in a assisted, with past medical history of HLD, ?dementia, cellulitis of the lower extremities, colon cancer reportedly in remission ( was diagnosed in 2014 per pt and underwent resection at [facility] and recently she was told no cancer), was sent to the ER from assisted, positive DVT in RLE. She denies chest pain, shortness of breath, headache or dizziness. She denies fever, chills, abdominal pain, nausea, vomit, diarrhea or constipation. - History Source History Provided By: Patient, Medical Record, Transfer Record Limitations to Obtaining History: No Limitations - Past Medical History Cardio/Vascular: Yes: Hyperlipdemia Gastrointestinal: Yes: Cancer (colon) ...: No - Alcohol/Substance Use Hx Alcohol Use: No - Smoking History Smoking history: Never smoked Have you smoked in the past 12 months: No Home Medications - Allergies Allergies/Adverse Reactions: Allergies Allergy/AdvReac Type Severity Reaction Status Date / Time omeprazole magnesium AdvReac Intermediate Rash Verified 04/25/17 23:46 [From Prilosec] zinc AdvReac Unknown Rash Verified 04/25/17 23:46 - Home Medications Home Medications: Ambulatory Orders Furosemide [Lasix -] 40 mg PO BIDAC 06/09/16 Simvastatin 20 mg PO HS 06/09/16 Acetaminophen [Acetaminophen 8 Hour] 650 mg PO Q8H PRN #20 tablet.er 04/03/17 Lactobacillus Acidophilus [Bacid -] 1 each PO BIDAC 04/26/17 Metoclopramide HCl [Reglan] 10 mg PO Q6H PRN 04/26/17 Family Disease History - Family Disease History Family History: Denies Review of Systems - Review of Systems Constitutional: denies: Fever, Lethargy, Night Sweats, Unintentional Wgt. Loss HENT: denies: Difficult Swallowing, Ear Discharge Neck: denies: Decreased ROM, Lumps, Pain on Movement Cardiovascular: denies: Chest Pain, Edema, Palpitations, Shortness of Breath Gastrointestinal: reports: Bloating. denies: Abdominal Pain, Constipation Musculoskeletal: reports: Extremity Pain, Other (right lower extremity pain.) Endocrine: reports: No Symptoms Physical Exam Vital Signs: Vital Signs Temperature 98.9 F 04/26/17 10:00 Pulse Rate 84 04/26/17 10:00 Respiratory Rate 20 04/26/17 10:00 Blood Pressure 121/66 04/26/17 10:00 O2 Sat by Pulse Oximetry (%) 95 04/26/17 09:00 Constitutional: Yes: Well Nourished, No Distress, Calm Eyes: Yes: Conjunctiva Clear, EOM Intact HENT: Yes: Atraumatic, Normocephalic, Other (pt hunched, has a soft neck collar) Neck: Yes: Supple Respiratory: Yes: Regular, CTA Bilaterally Gastrointestinal: Yes: Normal Bowel Sounds, Soft, Abdomen, Obese Edema: Yes Edema: LLE: Trace, RLE: Trace (RLE>LLE. Erythema+) Labs: CBC, BMP 04/26/17 00:25 04/26/17 00:25 Problem List - Problems (1) Right leg DVT Code(s): I82.401 - ACUTE EMBOLISM AND THOMBOS UNSP DEEP VEINS OF R LOW EXTREM Qualifiers: Affected thrombotic vein of extremity: other lower extremity vein Chronicity: acute Qualified Code(s): I82.491 - Acute embolism and thrombosis of other specified deep vein of right lower extremity (2) Colon cancer Code(s): C18.9 - MALIGNANT NEOPLASM OF COLON, UNSPECIFIED (3) Leukocytosis Code(s): D72.829 - ELEVATED WHITE BLOOD CELL COUNT, UNSPECIFIED Assessment/Plan Assessment/Plan: Right Extensive DVT Personal hx of colon cancer s/p surgery at an outside hospital. elevated white cell count. Plan: -Patient's DVT is likely a provoked , in the setting of age, infections ( cellulitis in the same extremity), immobility. -Vascular consult -can be switched to newer oral anticoagulants (10 mg twice daily for 7 days followed by 5 mg twice daily for eliquis ) on discharge. -re: colon cancer, clinically HERN[facility]N, imaging from last month, with no evidence of disease, except for one lung nodule, repeat CT chest ordered -will order CEA -Leuckocytosis likely reactive. will follow.
--- NOTE | 2017-04-26 14:40 | EKG ---
Test Reason : Blood Pressure : / mmHG Vent. Rate : 098 BPM Atrial Rate : 098 BPM P-R Int : 128 ms QRS Dur : 072 ms QT Int : 346 ms P-R-T Axes : 077 010 063 degrees QTc Int : 441 ms NORMAL SINUS RHYTHM POSSIBLE INFERIOR INFARCT , AGE UNDETERMINED ABNORMAL ECG WHEN COMPARED WITH ECG OF 31-MAR-2017 05:42, ABERRANT CONDUCTION IS NO LONGER PRESENT NON-SPECIFIC CHANGE IN ST SEGMENT IN LATERAL LEADS Confirmed by TAMMI DOLAN MD ([id number]) on 04/26/2017 2:40:07 PM Referred By: Confirmed By:TAMMI DOLAN MD
[2017-04-26] MEDS: ATORVASTATIN CA 10 MG TABLET (FP) PO SCH (21:02)
[2017-04-27] MEDS ORDERED: oxyCODONE HCL 5 MG TABLET PO ONE (00:45)
[2017-04-27] MEDS: FUROSEMIDE 40 MG TABLET (FP) PO SCH ×2 (06:44→14:29)
[2017-04-27 07:09] LABS: MCH 26.5 pg (25.7-33.7); MCHC 32.5 g/dl (32.0-36.0); MEAN CELL VOLUME 81.7 fl (80-96); MEAN PLT VOLUME 9.2 fl (7.5-11.1); PLATELET COUNT 228 K/MM3 (134-434); WHITE BLOOD COUNT 8.8 K/mm3 (4.0-10.0)
[2017-04-27] MEDS: PANTOPRAZOLE 40 MG TABLET (FP) PO SCH (09:18)
[2017-04-27] MEDS: ENOXAPARIN NA (PORCINE) 80 MG/0.8 ML DISP.SYRIN SQ SCH (09:18)
[2017-04-27] MEDS: LACTOBACILLUS ACIDOPHILUS 1 EACH TAB (FP) PO SCH ×2 (09:18→22:09)
--- NOTE | 2017-04-27 11:31 | PN ---
Progress Note, Physician Chief Complaint: RLE DVT History of Present Illness: Originally came in with cc of RLE DVT, seen by hematology, NAD, no SOB, complaining of mild back pain - Current Medication List Current Medications: Active Medications Acetaminophen (Tylenol -) 650 mg PO Q8H PRN PRN Reason: BACK PAIN Last Admin: 04/26/17 20:46 Dose: 650 mg Apixaban (Eliquis -) 10 mg PO BID RAMAN Atorvastatin Calcium (Lipitor -) 10 mg PO HS [facility] Last Admin: 04/26/17 21:02 Dose: 10 mg Furosemide (Lasix -) 40 mg PO BIDLASIX RAMAN Last Admin: 04/27/17 06:44 Dose: 40 mg Lactobacillus Acidophilus (Bacid -) 1 tab PO BID [facility] Last Admin: 04/27/17 09:18 Dose: 1 tab Metoclopramide HCl (Reglan -) 10 mg PO ACHS PRN PRN Reason: NAUSEA Pantoprazole Sodium (Protonix -) 40 mg PO DAILY [facility] Last Admin: 04/27/17 09:18 Dose: 40 mg - Objective Vital Signs: Vital Signs Temperature 97.9 F 04/27/17 05:00 Pulse Rate 87 04/27/17 05:00 Respiratory Rate 16 04/27/17 05:00 Blood Pressure 125/65 04/27/17 05:00 O2 Sat by Pulse Oximetry (%) 95 04/26/17 21:00 Constitutional: Yes: Well Nourished, No Distress, Calm Cardiovascular: Yes: Regular Rate and Rhythm Respiratory: Yes: Regular Gastrointestinal: Yes: Normal Bowel Sounds Musculoskeletal: Yes: WNL Extremities: Yes: Erythema (BLLE), Other (BLLE-warm to touch) Edema: Yes Edema: LLE: Trace, RLE: Trace Peripheral Pulses WNL: Yes Integumentary: Yes: WNL Neurological: Yes: Alert Psychiatric: Yes: Alert Labs: CBC, BMP 04/27/17 06:30 04/26/17 00:25 INR, PTT INR 1.04 (0.82-1.09) 04/26/17 00:25 Problem List - Problems (1) Leukocytosis Assessment/Plan: likely leukomoid ID consult Code(s): D72.829 - ELEVATED WHITE BLOOD CELL COUNT, UNSPECIFIED (2) Right leg DVT Assessment/Plan: -switched to Eliquis 10 mg po BID x 7 days then 5 mg PO BID -hematology and vascular consult Code(s): I82.401 - ACUTE EMBOLISM AND THOMBOS UNSP DEEP VEINS OF R LOW EXTREM Qualifiers: Qualified Code(s): I82.491 - Acute embolism and thrombosis of other specified deep vein of right lower extremity (3) UTI (urinary tract infection) Assessment/Plan: Microbiology 04/26/17 03:22 Urine Culture - Preliminary Urine - Urine Clean Catch Lactose Fermenting Neg Bacilli Lactose Fermenting Neg Bacilli#2 04/26/17 00:25 Blood Culture - Preliminary Blood - Peripheral Venous NO GROWTH OBTAINED AFTER 24 HOURS, INCUBATION TO CONTINUE FOR 4 DAYS. 04/26/17 00:25 Blood Culture - Preliminary Blood - Peripheral Venous NO GROWTH OBTAINED AFTER 24 HOURS, INCUBATION TO CONTINUE FOR 4 DAYS. -asymptomatic -ID consult Code(s): N39.0 - URINARY TRACT INFECTION, SITE NOT SPECIFIED Qualifiers: Qualified Code(s): N30.01 - Acute cystitis with hematuria Assessment/Plan -eliquis -tramadol for pain -CT chest -ID and vascular to see -monitor labs and vitals
--- NOTE | 2017-04-27 14:12 | PN ---
Progress Note (short form) - Note Progress Note: pt seen and examined. resting comfortably. Last Vital Signs Temp Pulse Resp BP Pulse Ox 98.2 F 90 16 119/61 96 04/27/17 11:00 04/27/17 11:00 04/27/17 11:00 04/27/17 11:00 04/27/17 09:00 CBC, BMP 04/27/17 06:30 04/26/17 00:25 Current Medications Generic Name Dose Route Start Last Admin Trade Name Freq PRN Reason Stop Dose Admin Acetaminophen 650 mg 04/26/17 02:37 04/26/17 20:46 Tylenol - PO 650 mg Q8H PRN Administration BACK PAIN Apixaban 10 mg 04/27/17 22:00 Eliquis - PO BID RAMAN Atorvastatin Calcium 10 mg 04/26/17 22:00 04/26/17 21:02 Lipitor - PO 10 mg HS RAMAN Administration Furosemide 40 mg 04/26/17 06:00 04/27/17 06:44 Lasix - PO 40 mg BIDLASIX RAMAN Administration Lactobacillus Acidophilus 1 tab 04/26/17 10:00 04/27/17 09:18 Bacid - PO 1 tab BID RAMAN Administration Metoclopramide HCl 10 mg 04/26/17 00:27 Reglan - PO ACHS PRN NAUSEA Pantoprazole Sodium 40 mg 04/26/17 10:00 04/27/17 09:18 Protonix - PO 40 mg DAILY RAMAN Administration Tramadol HCl 50 mg 04/27/17 14:07 Ultram - PO Q8H PRN PAIN Assessment/Plan: Right Extensive DVT Personal hx of colon cancer s/p surgery at an outside hospital.([facility]) Lung Nodule Plan: -switched to eliquis, therapeutic dose. -re: colon cancer, clinically HERNÁN, imaging from last month, with no evidence of disease in the abdomen/pelvis. -repeat CT chest, report reviewed, reportedly at [facility] ( verbal) a CT chest in 05/2015 and 09/2016, did not have the pulm nodules. Likely may do a PET CT as an OP or repeat CT chest -Pulm input appreciated. -f/u CEA Problem List - Problems (1) Right leg DVT Code(s): I82.401 - ACUTE EMBOLISM AND THOMBOS UNSP DEEP VEINS OF R LOW EXTREM Qualifiers: Qualified Code(s): I82.491 - Acute embolism and thrombosis of other specified deep vein of right lower extremity (2) Colon cancer Code(s): C18.9 - MALIGNANT NEOPLASM OF COLON, UNSPECIFIED (3) Leukocytosis Code(s): D72.829 - ELEVATED WHITE BLOOD CELL COUNT, UNSPECIFIED
[2017-04-27] MEDS: traMADol HCL 50 MG TABLET PO PRN ×2 (14:29→22:10)
--- NOTE | 2017-04-27 15:46 | CONS ---
INFECTIOUS DISEASE CONSULTATION DATE OF CONSULTATION: DATE OF DICTATION: 04/27/2017 HISTORY OF PRESENT ILLNESS: This is a 77-year-old female from [facility], whom I am asked to see for a positive urine culture. Patient has a history of hyperlipidemia and colon cancer and presented to the emergency room, having been diagnosed with DVT of the right lower extremity. I am asked to see her now as a urine culture was sent for unclear reasons, which has a low colony count of bacteria. The patient has dementia and can offer no meaningful history but has been afebrile with a normal white count. PAST MEDICAL HISTORY: Includes colon cancer and hyperlipidemia. MEDICATIONS AT HOME: Lasix, simvastatin, metoclopramide. ALLERGIES: None known. SOCIAL HISTORY: Nonsmoker. No history of EtOH use. FAMILY HISTORY: Unobtainable. REVIEW OF SYSTEMS: All systems reviewed and negative. PHYSICAL EXAMINATION: General: She was an elderly woman, confused, in no acute distress. Vital Signs: Temperature 97.8, pulse 91, blood pressure 120/65. Neck: In a collar. Lungs: Clear. Heart: S1, S2. Regular rhythm. No murmur. Abdomen: Soft, nontender, without hepatosplenomegaly. Extremities: With bilateral lower extremity edema. LABORATORY DATA: The white count is 8.8, hemoglobin 11.8, platelets 228. BUN 19, creatinine 0.6. Urinalysis screening negative for leukocyte esterase. Urine culture shows low colony count of 2 different gram-negative lactose-fermenting organisms. ASSESSMENT: Asymptomatic bacteriuria. PLAN: At this point, I see no indication for antibiotics. Would observe off any antimicrobials. Kindly recall as needed. DAISY SILVER M.D. [id number]
[2017-04-27] MEDS: ATORVASTATIN CA 10 MG TABLET (FP) PO SCH (22:10)
[2017-04-27] MEDS: APIXABAN 5 MG TABLET PO SCH (22:10)
[2017-04-28] MEDS: traMADol HCL 50 MG TABLET PO PRN (06:56)
[2017-04-28] MEDS: FUROSEMIDE 40 MG TABLET (FP) PO SCH ×2 (06:56→14:57)
[2017-04-28] MEDS ORDERED: PT OWN MED DRAWER 7, Y5N ONE (10:06)
[2017-04-28] MEDS: APIXABAN 5 MG TABLET PO SCH (10:31)
[2017-04-28] MEDS: PANTOPRAZOLE 40 MG TABLET (FP) PO SCH (10:31)
[2017-04-28] MEDS: LACTOBACILLUS ACIDOPHILUS 1 EACH TAB (FP) PO SCH (10:31)
[2017-04-28 13:30] VITALS: BP 115/51; PULSE 84; TEMP 97.5
--- NOTE | 2017-04-28 14:36 | DS ---
Physical Examination Vital Signs: Vital Signs Temperature 97.5 F L 04/28/17 13:28 Pulse Rate 84 04/28/17 13:28 Respiratory Rate 18 04/28/17 13:28 Blood Pressure 115/51 04/28/17 13:28 O2 Sat by Pulse Oximetry (%) 96 04/28/17 09:00 Constitutional: Yes: Well Nourished, No Distress, Calm Cardiovascular: Yes: Regular Rate and Rhythm Respiratory: Yes: Regular Gastrointestinal: Yes: Normal Bowel Sounds Musculoskeletal: Yes: WNL Extremities: Yes: WNL, Erythema (mild-BLLE) Edema: Yes Edema: LLE: Trace, RLE: Trace Peripheral Pulses WNL: Yes Neurological: Yes: Alert, Pre-Existing Deficit Psychiatric: Yes: Alert Labs: CBC, BMP 04/27/17 06:30 04/26/17 00:25 Discharge Summary Reason For Visit: DEEP VEIN THROMBOSIS (DVT) OF RIGHT LOWER EX- Current Active Problems Acute diarrhea (Acute) Leukocytosis (Acute) Right leg DVT (Acute) Hospital Course: 77 [address] old female from [facility], with a significant past medical history of HLD , wound care, colon cancer who presents to the emergency department with positive DVT in RLE. Patient has no physical complaints as it appears patient is demented. She denies chest pain, headache or dizziness. She denies fever, chills, abdominal pain, nausea, vomit, diarrhea or constipation. She denies dysuria, frequency, urgency or hematuria. During her stay she was seen by Hematology and ID. CT chest showed pulmonary nodules that would require follow up as outpatient. She wasn't treated for asymptomatic UTI. She was started on Eliquis on 04/27/17 at 10 mg po BID, she has received 2 doses. She will continue Eliquis 10 mg BID for another 6 days then switch to Eliquis 5 mg po BID. Her current medication list is: 1. Tylenol 650 mg po Q6H PRN for mild to moderate pain or fever over 100.0 F 2. Tramadol 50 mg po TID PRN for severe 3. Lactobacillus 1 Cap BID 4. Atorvaststin 10 mg po HS 5. Furosemide 40 mg po daily 6. Reglan 10 mg PO ACHS PRN for nausea 7. Pantoprazole 40 mg po daily, which could be titrated down to 20 mg in 1 month if tolerated. 8. Eliquis 10 mg PO BID for 6 days then switch to 5 mg po BID - Instructions Diet, Activity, Other Instructions: Sodium controlled diet Repeat U/S right lower extremity in 1 month F/U with pulmonary outpatient for pulmonary nodules Eliquis 10 mg po BID next 6 days, then switch to 5 mg po BID Referrals: Pricilla Mccarthy MD [Primary Care Provider] - Disposition: [facility] - Home Medications Comprehensive Discharge Medication List: Ambulatory Orders Furosemide [Lasix -] 40 mg PO BIDAC 06/09/16 Simvastatin 20 mg PO HS 06/09/16 Acetaminophen [Acetaminophen 8 Hour] 650 mg PO Q8H PRN #20 tablet.er 04/03/17 Lactobacillus Acidophilus [Bacid -] 1 each PO BIDAC 04/26/17 Metoclopramide HCl [Reglan] 10 mg PO Q6H PRN 04/26/17 Apixaban [Eliquis -] 10 mg PO BID tablet 04/28/17 Lactobacillus Acidophilus [Bacid -] 1 tab PO BID tab 04/28/17 Metoclopramide HCl [Reglan -] 10 mg PO ACHS PRN #0 tablet 04/28/17 Tramadol HCl [Ultram -] 50 mg PO Q8H PRN #0 tablet MDD 3 04/28/17
== END 2017-04-28 16:47 | DRG 300 ==
LOC: JER 23:28 → JERBED 04-26 00:24 → J4S 04-26 04:51 → J7W 04-28 01:22
PROVIDERS: ADMIT Family Medicine; ATTEND Family Medicine
DX: I82.411 Acute embolism and thrombosis of right femoral vein (principal); L03.119 Cellulitis of unspecified part of limb; N39.0 Urinary tract infection, site not specified; I82.431 Acute embolism and thrombosis of right popliteal vein; E78.5 Hyperlipidemia, unspecified; D72.829 Elevated white blood cell count, unspecified; B96.29 Other Escherichia coli [E. coli] as the cause of diseases classified elsewhere; Z85.038 Personal history of other malignant neoplasm of large intestine; Z79.01 Long term (current) use of anticoagulants
CPT/HCPCS: 36415; 71010-TC; 71250-TC; 80053; 81003; 82378; 83605; 85025; 85027; 85610; 85730; 86850; 86900; 86901; 87040; 87086; 87186; 93005; 93010; 93970-TC; 99284-25

== ENCOUNTER 2018-01-18 12:45 | Emergency (ER) | payer OTHER ==
[2018-01-18 13:26] VITALS: TEMP 97.9; BMI 29.2
--- NOTE | 2018-01-18 14:27 | PDOC ---
History of Present Illness - General Chief Complaint: Pain, Acute Stated Complaint: BILAT.HEEL/RECTAL PAIN/BURNING ON URINATION History Source: Patient, Care Provider Exam Limitations: No Limitations - History of Present Illness Initial Comments: 01/18/18 14:23 77 yo F wit h/o prior dvt, bed bound here with home health aid for c/o buttock pain, and bilateral heel pain. pt has had h/o bilat heel ulcers for which she follows at wound care clinic, recently c/o recurrent pain. also h/o dvt. no leg swelling. no cough no sob. no chest pain. no f/c also c/o dysruia, " hot urine". no n/v. no abd pain. did take tylenol today mild relief. Past History - Past Medical History Allergies/Adverse Reactions: Allergies Allergy/AdvReac Type Severity Reaction Status Date / Time omeprazole magnesium AdvReac Intermediate Rash Verified 01/18/18 13:17 [From Prilosec] zinc AdvReac Unknown Rash Verified 01/18/18 13:17 Home Medications: Ambulatory Orders Furosemide [Lasix -] 40 mg PO ASDIR 06/09/16 Simvastatin 10 mg PO HS 06/09/16 Apixaban [Eliquis -] 5 mg PO ASDIR 01/18/18 Topiramate 25 mg PO ASDIR 01/18/18 Anemia: No Asthma: No Cancer: Yes (COLON) Cardiac Disorders: No CVA: No COPD: No CHF: No DVT: Yes (RT LEG) Dementia: No Diabetes: No GI Disorders: (H/O COLON CA) Disorders: No HTN: No Hypercholesterolemia: Yes Liver Disease: No Seizures: No Thyroid Disease: No - Surgical History Abdominal Surgery: Yes (COLECTOMY) Appendectomy: No Cardiac Surgery: No Cholecystectomy: Yes (06/01) Lung Surgery: No Neurologic Surgery: No Orthopedic Surgery: No - Immunization History Immunization Up to Date: Yes - Suicide/Smoking/Psychosocial Hx Smoking History: Never smoked Have you smoked in the past 12 months: No Hx Alcohol Use: No Drug/Substance Use Hx: No Substance Use Type: None Hx Substance Use Treatment: No Review of Systems - Review of Systems Constitutional: No: Chills, Diaphoresis, Fever HEENTM: No: Blurred Vision Respiratory: No: Cough, Orthopnea Cardiac (ROS): No: Chest Pain ABD/GI: Yes: Other (buttock pain). No: Nausea, Vomiting : Yes: Burning, Dysuria. No: Discharge Integumentary: No: Bruising, Change in Color Neurological: No: Headache, Numbness Psychiatric: No: Stressors All Other Systems: Reviewed and Negative *Physical Exam - Vital Signs Last Vital Signs Temp Pulse Resp BP Pulse Ox 97.9 F 87 16 135/70 100 01/18/18 13:18 01/18/18 13:18 01/18/18 13:18 01/18/18 13:18 01/18/18 13:18 - Physical Exam General Appearance: Yes: Nourished, Appropriately Dressed Neck: positive: Trachea midline Respiratory/Chest: positive: Lungs Clear, Normal Breath Sounds Cardiovascular: positive: Regular Rhythm, Regular Rate, S1, S2 Gastrointestinal/Abdominal: positive: Normal Bowel Sounds, Flat, Soft. negative : Tender Musculoskeletal: positive: Normal Inspection. negative: CVA Tenderness, CVA Tenderness (R) Integumentary: positive: Normal Color, Dry, Warm, Other (bilat heel erythema, mild skin break down right heel 2 mm x 3 mm stage I. sacrum erythematous only. rectal nontener. no blood) Neurologic: positive: Fully Oriented, Alert, Normal Mood/Affect ED Treatment Course - LABORATORY CBC & Chemistry Diagram: 01/18/18 14:55 01/18/18 14:55 Medical Decision Making - Medical Decision Making 01/18/18 14:26 77 yo F here with c/o bilat heel leg pain, and dysuria, rectal pain . plan doppler r/o recurrent dvt. xray feet, local wound care for heel, tylenol for pain, labs and urine r/o uti or pyelo. will dw pcp dr. Fox. *DC/Admit/Observation/Transfer Diagnosis at time of Disposition: Pressure ulcer - Discharge Dispostion Disposition: HOME Condition at time of disposition: Improved Admit: No - Referrals Referrals: Jorje Healy MD [Primary Care Provider] - - Patient Instructions Printed Discharge Instructions: How to Prevent Pressure Ulcers, Pressure Sores Additional Instructions: you should follow up wtih the wound clinic. avoid pressure on the heels. follow up wtih dr. Villaseñor. call to schedule - Post Discharge Activity
[2018-01-18 15:04] LABS: BASO % 0.6 % (0-2.0); EOS % 1.6 % (0-4.5); HEMATOCRIT 42.1 % (32.4-45.2); HEMOGLOBIN 14.2 GM/dL (10.7-15.3); LYMPH % 16.1 % (8-40); MCH 28.7 pg (25.7-33.7); MCHC 33.7 g/dl (32.0-36.0); MEAN CELL VOLUME 85.1 fl (80-96); MEAN PLT VOLUME 9.5 fl (7.5-11.1); MONO % 5.3 % (3.8-10.2); NEUT % 76.4 % (42.8-82.8); PLATELET COUNT 235 K/MM3 (134-434); RBC 4.95 M/mm3 (3.60-5.2); RDW 13.6 % (11.6-15.6); WHITE BLOOD COUNT 8.8 K/mm3 (4.0-10.0)
[2018-01-18 15:34] LABS: ALBUMIN 3.9 g/dl (3.4-5.0); ANION GAP 10 (8-16); BLOOD UREA NITROGEN 16 mg/dL (7-18); CALCIUM 9.8 mg/dL (8.5-10.1); CHLORIDE 99 mmol/L (98-107); CO2 30 mmol/L (21-32); CREATININE 0.9 mg/dL (0.55-1.02); GLUCOSE,RANDOM 88 mg/dL (74-106); POTASSIUM 3.3 mmol/L (3.5-5.1); SGOT/AST 17 U/L (15-37); SGPT/ALT 14 U/L (12-78); SODIUM 139 mmol/L (136-145)
[2018-01-18 15:36] LABS: ALK PHOS 89 U/L (45-117); BILIRUBIN,TOTAL 0.7 mg/dL (0.2-1.0); TOT PROT 7.9 g/dl (6.4-8.2)
[2018-01-18] MEDS ORDERED: ACETAMINOPHEN 325 MG TABLET (FP) PO ONE (17:00)
[2018-01-18] MEDS ORDERED: ACETAMINOPHEN 650 MG/20.3 ML ORAL SOLUTION (CUPS) ONE (17:06)
[2018-01-18 17:17] VITALS: BP 141/68; PULSE 82
[2018-01-18 18:35] LABS: URINE APPEARANCE CLEAR; URINE BILIRUBIN NEGATIVE (<2.0 mg/dL); URINE BLOOD 1+ (NEGATIVE); URINE COLOR STRAW; URINE GLUCOSE (UA) NEGATIVE (NEGATIVE); URINE KETONE NEGATIVE (NEGATIVE); URINE LEUK ESTERASE TRACE (NEGATIVE); URINE NITRITE NEGATIVE (NEGATIVE); URINE PROTEIN NEGATIVE (NEGATIVE); URINE UROBILINOGEN NEGATIVE mg/dL (0.2-1.0)
[2018-01-18 19:28] LABS: EPI CELLS RARE /HPF (FEW); URINE MUCUS RARE
== END 2018-01-18 20:47 | disposition home or self-care (01) ==
LOC: JER 12:45
DX: L89.629 Pressure ulcer of left heel, unspecified stage (principal); L89.619 Pressure ulcer of right heel, unspecified stage; E78.00 Pure hypercholesterolemia, unspecified; Z86.718 Personal history of other venous thrombosis and embolism; Z79.01 Long term (current) use of anticoagulants
CPT/HCPCS: 36415; 73630-TC-LT; 73630-TC-RT-FY; 80053; 81003; 81015; 85025; 87086; 93970-TC; 99284-25

== ENCOUNTER 2018-11-01 16:54 | Inpatient (IN) | payer OTHER ==
--- NOTE | 2018-11-01 17:32 | PDOC ---
History of Present Illness - General Chief Complaint: Injury Stated Complaint: Injury Time Seen by Provider: 11/01/18 17:28 - History of Present Illness Initial Comments: 11/01/18 17:32 78 year old female, with a significant past medical history of HLD, prior colon cancer s/p colectomy, DVT in the RLE on Eliquis, constipation, GERD, bedbound, who presents to the emergency department after fall from walker while trying to get to the bathroom She states that she fell backwards, flat on her back but that she didn't hit her head and did not lose consciousness. The fall was witnessed by her aide. She is complaining of b/l leg, hip pain as well as left wrist pain. Aide is present at bedside. Past History - Past Medical History Allergies/Adverse Reactions: Allergies Allergy/AdvReac Type Severity Reaction Status Date / Time omeprazole magnesium AdvReac Intermediate Rash Verified 05/03/18 12:54 [From Prilosec] zinc AdvReac Unknown Rash Verified 05/03/18 12:54 Home Medications: Ambulatory Orders Apixaban [Eliquis] 5 mg PO BID 05/03/18 Ciprofloxacin [Cipro -] 500 mg PO BID #14 tablet 05/03/18 Docusate Sodium [Colace] 100 mg PO TID 05/03/18 Furosemide [Lasix] 40 mg PO BID 05/03/18 Omeprazole 40 mg PO DAILY 05/03/18 Sennosides [Senna] 8.6 mg PO BID 05/03/18 Simvastatin [Zocor -] 10 mg PO HS 05/03/18 Topiramate [Topamax] 25 mg PO DAILY 05/03/18 metroNIDAZOLE [Flagyl -] 500 mg PO TID #21 tablet 05/03/18 Multivit-Min/Iron/Folic/Lutein [Centrum Silver Women Tablet] 1 tab PO DAILY Potassium Chloride 20 meq PO DAILY 05/14/18 Anemia: No Asthma: No Cancer: Yes (COLON) Cardiac Disorders: No CVA: No COPD: No CHF: No DVT: Yes (RT LEG) Dementia: No Diabetes: No GI Disorders: (H/O COLON CA) Disorders: No HTN: No Hypercholesterolemia: Yes Liver Disease: No Seizures: No Thyroid Disease: No - Surgical History Abdominal Surgery: Yes (COLECTOMY) Appendectomy: No Cardiac Surgery: No Cholecystectomy: Yes (06/01) Lung Surgery: No Neurologic Surgery: No Orthopedic Surgery: No - Immunization History Immunization Up to Date: Yes - Suicide/Smoking/Psychosocial Hx Smoking History: Never smoked Have you smoked in the past 12 months: No Information on smoking cessation initiated: No Hx Alcohol Use: No Drug/Substance Use Hx: No Substance Use Type: None Hx Substance Use Treatment: No Review of Systems - Review of Systems Able to Perform ROS?: Yes Is the patient limited Mohawk proficient: No Constitutional: No: Symptoms Reported HEENTM: No: Symptoms Reported Respiratory: No: Symptoms reported Cardiac (ROS): No: Symptoms Reported ABD/GI: No: Symptoms Reported Musculoskeletal: Yes: See HPI Integumentary: No: Symptoms Reported All Other Systems: Reviewed and Negative *Physical Exam - Vital Signs Last Vital Signs Temp Pulse Resp BP Pulse Ox 97.0 F L 77 16 105/67 100 11/01/18 16:54 11/01/18 16:54 11/01/18 16:54 11/01/18 16:54 11/01/18 16:54 - Physical Exam General Appearance: Yes: Nourished, Appropriately Dressed, Moderate Distress HEENT: positive: ZULLY, Normal ENT Inspection Respiratory/Chest: positive: Lungs Clear, Normal Breath Sounds. negative: Chest Tender, Respiratory Distress Cardiovascular: positive: Regular Rhythm, Regular Rate, S1, S2 Vascular Pulses: Dorsalis-Pedis (R): 2+, Doralis-Pedis (L): 2+ Gastrointestinal/Abdominal: positive: Normal Bowel Sounds, Flat, Soft. negative : Tender Musculoskeletal: positive: Other (b/l legs, knees and feet tenderness entire legs, left leg shortened and ext rotated. left wirst tendernes, unable to flex. ) Extremity: positive: Normal Capillary Refill. negative: Normal Inspection, Normal Range of Motion Integumentary: positive: Normal Color, Dry, Warm Neurologic: positive: Fully Oriented, Alert, Normal Mood/Affect, Normal Response , Motor Strength 5/5 Moderate Sedation - Procedure Monitoring Vital Signs: Procedure Monitoring Vital Signs Temperature 97.0 F L 11/01/18 16:54 Pulse Rate 77 11/01/18 16:54 Respiratory Rate 16 11/01/18 16:54 Blood Pressure 105/67 11/01/18 16:54 O2 Sat by Pulse Oximetry (%) 100 11/01/18 16:54 ED Treatment Course - LABORATORY CBC & Chemistry Diagram: 11/01/18 18:30 11/01/18 19:00 Medical Decision Making - Medical Decision Making 11/01/18 19:57 PAin control with oxycodib xray low extremelity bilateral. Xray unclear by Dr. Patterson, Orthopedic surgeon. Will do Ct right hip to r/o fracture. PAtient had episode of emesis in cat scan. Gave lucinda landin. CT read pending, 11/02/18 00:23 No fracture seen on CT hip. Patient still in pain not able to ambulate. UA pending, Will admit for inability to ambulate. *DC/Admit/Observation/Transfer Diagnosis at time of Disposition: Unable to ambulate - Discharge Dispostion Decision to Admit order: Yes - Referrals Referrals: Jorje Healy MD [Primary Care Provider] - - Patient Instructions - Post Discharge Activity
--- NOTE | 2018-11-01 17:33 | PDOC ---
Attending Attestation - HPI HPI: 11/01/18 18:37 The patient is an 78 year old female with a PMH of HLD, colon cancer s/p colectomy, DVT in the RLE on Eliquis, constipation, GERD who presents to the ER s/p fall earlier today. Patient states she ambulates with a walker. Patient was walking to the bathroom with the assistance of an aid. Patient subsequently fell backwards while walking for the aid to put the bathroom seat down. Patient denies any head trauma or loss of consciousness. She had difficulty getting up after the incident and the aid activated EMS to bring her to the ER. She is currently complaining of bilateral lower extremity pain since the fall. The patient denies chest pain, shortness of breath, headache and dizziness. Denies fever, chills, nausea, vomit, diarrhea and constipation. Denies dysuria, frequency, urgency and hematuria. Allergies: NKA Past surgical history: colectomy, cholecystectomy Social history: No reported PCP: Dr. Fox <Cira Holt - Last Filed: 11/01/18 18:40> - Physicial Exam PE: 11/01/18 20:54 Agree with resident exam. Patient is alert and oriented x 3 and in no acute distress. Lungs are clear. Heart regular rate and rhythm. + diffuse tenderness of bilateral lower extremities. R leg appears slightly shortened and rotated, but I am unable to localize the tenderness in her legs to one area. She is unable or unwilling to bend either extremity at the hip or knee - Medical Decision Making 11/01/18 20:56 Pt presents to the ED complaining of bilateral leg pain after fall from standing. Denies LOC. Unable to ambulate. Will check xrays of the entire lower extremites to rule out fx. Will check ct hip if xray is ambiguous. 11/01/18 20:58 <Aliya Chan - Last Filed: 11/01/18 20:59>
[2018-11-01 18:01] VITALS: BMI 27.4
[2018-11-01] MEDS ORDERED: oxyCODONE HCL 5 MG TABLET PO ONE (18:26)
[2018-11-01 18:44] LABS: BASO % 0.3 % (0-2.0); EOS % 0.4 % (0-4.5); HEMATOCRIT 40.8 % (32.4-45.2); LYMPH % 5.2 % (8-40); MCH 29.2 pg (25.7-33.7); MCHC 34.4 g/dl (32.0-36.0); MEAN PLT VOLUME 9.3 fl (7.5-11.1); MONO % 3.2 % (3.8-10.2); NEUT % 90.9 % (42.8-82.8); PLATELET COUNT 307 K/MM3 (134-434); RBC 4.79 M/mm3 (3.60-5.2); WHITE BLOOD COUNT 20.1 K/mm3 (4.0-10.0)
[2018-11-01] MEDS ORDERED: oxyCODONE HCL 5 MG TABLET ONE (18:45)
[2018-11-01 18:56] LABS: INR 1.28 (0.83-1.09); PROTHROMBIN TIME (PATIENT) 15.1 SEC (9.7-13.0)
[2018-11-01 18:59] LABS: ACTIVATED PTT 29.2 SECONDS (25.2-36.5)
[2018-11-01 19:58] LABS: ALBUMIN 3.1 g/dl (3.4-5.0); ALK PHOS 81 U/L (45-117); ANION GAP 9 MMOL/L (8-16); BILIRUBIN,TOTAL 0.4 mg/dL (0.2-1); BLOOD UREA NITROGEN 23 mg/dL (7-18); CALCIUM 9.4 mg/dL (8.5-10.1); CHLORIDE 100 mmol/L (98-107); CO2 29 mmol/L (21-32); CREATININE 0.8 mg/dL (0.55-1.3); GLUCOSE,RANDOM 118 mg/dL (74-106); POTASSIUM 3.8 mmol/L (3.5-5.1); SGOT/AST 27 U/L (15-37); SGPT/ALT 20 U/L (13-61); SODIUM 137 mmol/L (136-145); TOT PROT 6.7 g/dl (6.4-8.2)
[2018-11-01] MEDS ORDERED: ONDANSETRON 4 MG/2 ML VIAL IVPUSH ONE (21:39)
[2018-11-01] MEDS ORDERED: morphine CARPU-JECT 2 MG/1 ML DISP.SYRIN IVPUSH ONE (21:47)
[2018-11-01] MEDS ORDERED: ONDANSETRON 4 MG/2 ML VIAL ONE (21:58)
[2018-11-01] MEDS ORDERED: MORPHINE SULFATE 2 MG/ML VIAL ONE (21:58)
[2018-11-01 22:11] LABS: PLATELET ESTIMATE ADEQUATE
[2018-11-01] MEDS ORDERED: METOCLOPRAMIDE HCL INJECTION 10 MG/2 ML VIAL IVPUSH ONE (22:30)
[2018-11-01] MEDS ORDERED: METOCLOPRAMIDE HCL INJECTION 10 MG/2 ML VIAL ONE (22:31)
[2018-11-02] MEDS ORDERED: SODIUM CHLORIDE 1,000 ML IV SCH ×2 (00:30→03:30)
[2018-11-02] MEDS ORDERED: CEFTRIAXONE 1 GM in DEXTROSE 5%-WATER - 50 ML IVPB ONE (00:39)
--- NOTE | 2018-11-02 01:00 | PN ---
Teaching Attending Note Name of Resident: Isamar Kaur ATTENDING PHYSICIAN STATEMENT I saw and evaluated the patient. I reviewed the resident's note and discussed the case with the resident. I agree with the resident's findings and plan as documented. SUBJECTIVE: Patient is an 78 year old woman with a PMH of HLD, colon cancer s/p colectomy, DVT in the RLE on Eliquis, constipation, GERD who presents to the ER s/p fall earlier today. Patient states she ambulates with a walker. Patient was walking to the bathroom with the assistance of an aid. Patient subsequently fell backwards while walking for the aid to put the bathroom seat down. Patient denies any head trauma or loss of consciousness. She had difficulty getting up after the incident and the aid activated EMS to bring her to the ER. She is currently complaining of bilateral lower extremity pain since the fall. Denies chest pain, shortness of breath, headache, dizziness, fever, chills, nausea, vomit, diarrhea or constipation. Also denies dysuria, frequency, urgency and hematuria. OBJECTIVE: Alert and not orthostatic Vital Signs Period Temp Pulse Resp BP Sys/Douglas Pulse Ox Last 24 Hr 97.0 F 77 16 105/67 100 HEENT: No Jaundice, eye redness or discharge, PERRLA, EOMI. Normocephalic, atraumatic. External ears are normal and hearing is grossly intact. No nasal discharge. Neck: Supple, nontender. No palpable adenopathy or thyromegaly. No JVD Chest: Good effort. Clear to auscultation and percussion. Heart: Regular. No S3, rub or murmur Abdomen: Not distended, soft, nontender and no HSM. No rebound or guarding. Normoactive bowel sounds. Ext: Peripheral pulses intact. No leg edema. Skin: Warm and dry. No petechiae or rash. Left hand ecchymosis, tender and reduced ROM of left wrist. Neuro: Alert. Global weakness. Oriented x3. CN 2-12 grossly intact. Sensation grossly intact in all four extremities and DTR are symmetric. Current Medications Generic Name Dose Route Start Last Admin Trade Name Freq PRN Reason Stop Dose Admin Ceftriaxone Sodium 1 gm/ 50 mls @ 100 mls/hr 11/02/18 00:39 Dextrose IVPB 02/15/19 01:08 ONCE ONE Home Medications Medication Instructions Recorded Apixaban [Eliquis] 5 mg PO BID 05/03/18 Docusate Sodium [Colace] 100 mg PO TID 05/03/18 Omeprazole 40 mg PO DAILY 05/03/18 Sennosides [Senna] 8.6 mg PO BID 05/03/18 Simvastatin [Zocor -] 10 mg PO HS 05/03/18 Topiramate [Topamax] 25 mg PO DAILY 05/03/18 Multivit-Min/Iron/Folic/Lutein 1 tab PO DAILY 05/14/18 [Centrum Silver Women Tablet] Potassium Chloride 20 meq PO DAILY 05/14/18 Lisinopril 0 mg PO DAILY 11/02/18 Abnormal Lab Results 11/01/18 11/01/18 11/01/18 18:30 18:30 19:00 WBC 20.1 H Absolute Neuts (auto) 18.3 H Neutrophils % 90.9 H Neutrophils % (Manual) 83.0 H Lymphocytes % 5.2 L D Monocytes % 3.2 L Monocytes % (Manual) 2 L PT with INR 15.10 H INR 1.28 H BUN 23 H Random Glucose 118 H Albumin 3.1 L ASSESSMENT AND PLAN: 1. Fall - Deemed a mechanical fall, but associated UTI is likely contributing factor. Getting Rocephin pending urine culture. Head CT scan didnot reveal any acute abnormality. C-spine CT and lower extremity CT did not show any fracture. Results of xrays of long bones done to rule out fracture still pending. Continue to monitor left hand and wrist pain and repeat head CT in 24 hours. Her aide says she has been progressively getting weaker and her mobility is declining. Will contact PCP tomorrow to find out if she has had prior neurologic workup to ascertain the cause of her mobility issues. Consult PT. Apply cold compress to dorsum of left hand. 2. Hypoalbuminemia - Possibly due to combined effects of malnutrition and inflammation associated with comorbid chronic conditions. Will ensure adequate dietary protein intake and also consult batch maker. 3. DVT prophylaxis - On Eliquis 4. Advance directives - Full code
[2018-11-02] MEDS ORDERED: CEFTRIAXONE 1 GM/50 ML BAG ONE (01:41)
[2018-11-02 01:44] LABS: URINE APPEARANCE SLCLOUDY; URINE BILIRUBIN NEGATIVE (<2.0 mg/dL); URINE COLOR YELLOW; URINE GLUCOSE (UA) NEGATIVE (NEGATIVE); URINE KETONE NEGATIVE (NEGATIVE); URINE LEUK ESTERASE 1+ (NEGATIVE); URINE NITRITE NEGATIVE (NEGATIVE); URINE PROTEIN NEGATIVE (NEGATIVE); URINE UROBILINOGEN NEGATIVE mg/dL (0.2-1.0)
[2018-11-02 01:48] LABS: EPI CELLS RARE /HPF (FEW); URINE BACTERIA MANY /hpf (NONE SEEN); URINE HYALINE CAST 1 /lpf; URINE MUCUS RARE
[2018-11-02] MEDS ORDERED: ACETAMINOPHEN 1000 MG/100 ML VIAL (NON FORMULARY) IVPB ONE (01:56)
[2018-11-02] MEDS ORDERED: ACETAMINOPHEN INJECTION 100 ML IVPB ONE (02:01)
--- NOTE | 2018-11-02 03:40 | HP ---
CHIEF COMPLAINT: s/p fall, generalized body pain PCP: Dr. Healy HISTORY OF PRESENT ILLNESS: 78F w/ pmhx of HLD, colon cx s/p partial colectomy, DVT (RLE on Eliquis), constipation, GERD presents to the ED s/p fall with complaints of generalized body pain. Pt states this morning she was doing her usual routine in which she was getting out of bed with the help of her aide and walking to the bathroom with the use of her rolling walker. Once the patient got to the bathroom with the help of her aide supporting her from behind, the pt noticed that the toilet seat was disconnected from the toilet, so the aide left the pt's side to fix it , but soon afterwards, the pt took a step back and fell on the floor. She denied hitting her head or losing consciousness, but she did admit to hitting her whole body on the floor and also landing on her L wrist. Pt states there was a "step up" on the floor that she might have tripped over when she took a step back. At the time, she denied fever/chills, headaches, dizziness, nausea, vomiting, chest pain, palpitations, cough, or difficulty breathing. She does report usually getting short of breath when walking a few steps around her house , but this is not new from her baseline. Upon exam, she admitted to b/l leg pain that has been chronic, but has since worsened after the fall today. She denies constipation/diarrhea, ER course was notable for: (1) BP 105/67, WBC 20.1, U/A showed 1+ LE, WBCs 13, many urine bacteria (2) Oxy 10 mg, Morphine 2 mg IVP, Zofran 4 IVP, Reglan 10 mg IVP, Rocephin 1gm IVPB, IV Tylenol given (3) RLE CT, Head CT, C-spine CT showed no acute pathology/fracture (4) Per ED resident, ortho was contacted with no recommendation for surgical intervention Recent Travel: Denies PAST MEDICAL HISTORY: As per HPI PAST SURGICAL HISTORY: partial colectomy cholecystectomy varicose vein sx in b/l legs (2014) double mastoid sx Social History: Smoking: Denies Alcohol: Denies Drugs: Denies Family History: Denies Allergies omeprazole magnesium [From Prilosec] Adverse Reaction (Intermediate, Verified 00:48) Rash zinc Adverse Reaction (Unknown, Verified 11/02/18 00:48) Rash HOME MEDICATIONS: Home Medications Medication Instructions Recorded Apixaban [Eliquis] 5 mg PO BID 05/03/18 Docusate Sodium [Colace] 100 mg PO TID 05/03/18 Omeprazole 40 mg PO DAILY 05/03/18 Sennosides [Senna] 8.6 mg PO BID 05/03/18 Simvastatin [Zocor -] 10 mg PO HS 05/03/18 Topiramate [Topamax] 25 mg PO DAILY 05/03/18 Multivit-Min/Iron/Folic/Lutein 1 tab PO DAILY 05/14/18 [Centrum Silver Women Tablet] Potassium Chloride 20 meq PO DAILY 05/14/18 Lisinopril 0 mg PO DAILY 11/02/18 REVIEW OF SYSTEMS CONSTITUTIONAL: Denies fever, chills, diaphoresis, generalized weakness, malaise HEENT: Denies rhinorrhea, nasal congestion, throat pain, throat swelling, difficulty swallowing, mouth swelling, ear pain, eye pain, visual changes CARDIOVASCULAR: Denies chest pain, syncope, palpitations, irregular heart rate, lightheadedness, peripheral edema RESPIRATORY: Denies cough, shortness of breath, dyspnea with exertion, orthopnea GASTROINTESTINAL: Denies abdominal pain, abdominal distension, nausea, vomiting , diarrhea, constipation, melena, hematochezia GENITOURINARY: Denies dysuria, frequency, urgency, hesitancy, hematuria MUSCULOSKELETAL: Admits to b/l LE pain, unable to ambulate NEUROLOGIC: Unable to ambulate due to pain; Denies headache, focal weakness or paresthesias, dizziness, seizure, mental status changes, bladder or bowel incontinence PHYSICAL EXAMINATION Vital Signs - 24 hr 11/01/18 11/01/18 16:54 19:20 Temperature 97.0 F L Pulse Rate 77 Respiratory 16 Rate Blood Pressure 105/67 O2 Sat by Pulse 100 100 Oximetry (%) GENERAL: AAOx3. NAD. Resting comfortably in bed. HEENT: AT/NC. EOMI. ZULLY. Dry mucus membranes. NECK: Limited range of motion, supple without lymphadenopathy, JVD, or masses. LUNGS: CTA B/L. No wheezes, rhonchi noted. HEART: RRR. Normal S1, S2. No murmurs noted. ABDOMEN: Soft, NT/ND. Hypoactive bowel sounds in all 4Qs. No visible masses noted. Vertical surgical scar noted in mid-abdomen. : Flores catheter in place draining clear yellow urine. MUSCULOSKELETAL: No CVA tenderness. No bony deformities. UPPER EXTREMITIES: 2+ radial pulses, warm, well-perfused. No cyanosis. No clubbing. L wrist swelling and bruising noted on dorsum of hand; pain upon wrist extension/flexion. 5/5 R sided shoulder and elbow flexion/extension. 5/5 R wrist flexion/extension. LOWER EXTREMITIES: 2+ dorsalis pedis pulses, warm, well-perfused. NEUROLOGICAL: Normal speech. Unable to assess gait. Follows commands. SKIN: Chronic b/l lower extremity hyperpigmentation, tender to palpation b/l with +swelling. Laboratory Results - last 24 hr 11/01/18 11/01/18 11/01/18 18:30 18:30 18:30 WBC 20.1 H RBC 4.79 Hgb 14.0 Hct 40.8 MCV 85.0 MCH 29.2 MCHC 34.4 RDW 14.0 Plt Count 307 D MPV 9.3 Absolute Neuts (auto) 18.3 H Neutrophils % 90.9 H Neutrophils % (Manual) 83.0 H Band Neutrophils % 4.0 Lymphocytes % 5.2 L D Lymphocytes % (Manual) 9.0 Monocytes % 3.2 L Monocytes % (Manual) 2 L Eosinophils % 0.4 Eosinophils % (Manual) 1.0 Basophils % 0.3 Basophils % (Manual) 0.0 Myelocytes % (Man) 1 Nucleated RBC % 0 Platelet Estimate Adequate PT with INR 15.10 H INR 1.28 H PTT (Actin FS) 29.2 Sodium Cancelled Potassium Cancelled Chloride Cancelled Carbon Dioxide Cancelled Anion Gap Cancelled BUN Cancelled Creatinine Cancelled Creat Clearance w eGFR Cancelled Random Glucose Cancelled Calcium Cancelled Total Bilirubin Cancelled AST Cancelled ALT Cancelled Alkaline Phosphatase Cancelled Total Protein Cancelled Albumin Cancelled Urine Color Urine Appearance Urine pH Ur Specific [place] Urine Protein Urine Glucose (UA) Urine Ketones Urine Blood Urine Nitrite Urine Bilirubin Urine Urobilinogen Ur Leukocyte Esterase Urine WBC (Auto) Urine RBC (Auto) Ur Epithelial Cells Urine Bacteria Hyaline Casts Urine Mucus Blood Type Antibody Screen 11/01/18 11/01/18 11/01/18 18:30 19:00 19:00 WBC RBC Hgb Hct MCV MCH MCHC RDW Plt Count MPV Absolute Neuts (auto) Neutrophils % Neutrophils % (Manual) Band Neutrophils % Lymphocytes % Lymphocytes % (Manual) Monocytes % Monocytes % (Manual) Eosinophils % Eosinophils % (Manual) Basophils % Basophils % (Manual) Myelocytes % (Man) Nucleated RBC % Platelet Estimate PT with INR INR PTT (Actin FS) Sodium 137 Potassium 3.8 Chloride 100 Carbon Dioxide 29 Anion Gap 9 BUN 23 H Creatinine 0.8 Creat Clearance w eGFR > 60 Random Glucose 118 H Calcium 9.4 Total Bilirubin 0.4 AST 27 ALT 20 Alkaline Phosphatase 81 Total Protein 6.7 Albumin 3.1 L Urine Color Urine Appearance Urine pH Ur Specific [place] Urine Protein Urine Glucose (UA) Urine Ketones Urine Blood Urine Nitrite Urine Bilirubin Urine Urobilinogen Ur Leukocyte Esterase Urine WBC (Auto) Urine RBC (Auto) Ur Epithelial Cells Urine Bacteria Hyaline Casts Urine Mucus Blood Type Cancelled O POSITIVE Antibody Screen Cancelled Negative 11/02/18 01:15 WBC RBC Hgb Hct MCV MCH MCHC RDW Plt Count MPV Absolute Neuts (auto) Neutrophils % Neutrophils % (Manual) Band Neutrophils % Lymphocytes % Lymphocytes % (Manual) Monocytes % Monocytes % (Manual) Eosinophils % Eosinophils % (Manual) Basophils % Basophils % (Manual) Myelocytes % (Man) Nucleated RBC % Platelet Estimate PT with INR INR PTT (Actin FS) Sodium Potassium Chloride Carbon Dioxide Anion Gap BUN Creatinine Creat Clearance w eGFR Random Glucose Calcium Total Bilirubin AST ALT Alkaline Phosphatase Total Protein Albumin Urine Color Yellow Urine Appearance Slcloudy Urine pH 5.0 Ur Specific [place] 1.014 Urine Protein Negative Urine Glucose (UA) Negative Urine Ketones Negative Urine Blood Negative Urine Nitrite Negative Urine Bilirubin Negative Urine Urobilinogen Negative Ur Leukocyte Esterase 1+ H Urine WBC (Auto) 13 Urine RBC (Auto) <1 Ur Epithelial Cells Rare Urine Bacteria Many Hyaline Casts 1 Urine Mucus Rare Blood Type Antibody Screen IMAGING; * Head CT: neg for acute IC pathology * RLE CT: neg for fx; b/l hip degenerative join changes * C-Spine CT: neg for fx * Hand/wrist x-ray: pending final read * foot/ankle x-ray: pending final read * knee x-ray: pending final read * hip/pelvis x-ray: pending final read ASSESSMENT/PLAN: 78F w/ pmhx of HLD, colon cx s/p partial colectomy, DVT (RLE on Eliquis), constipation, GERD presents to the ED s/p fall with complaints of generalized body pain. #S/p fall; likely mechanical fall given history, r/o infectious etiology vs. age -related neurological changes vs. Normal-pressure hydrocephalus -Head CT, RLE CT, and C-spine CT neg for acute pathology/fracture -Hand/wrist, foot/ankle, knee, hip/pelvis x-ray done; await final read -Ortho contacted by ED, no need for surgical intervention at this time -Fall risk precautions -U/A suspicious for UTI; IV Ceftriaxone x1 dose given. Pt's fall could be due to infectious etiology 2/2 UTI, will continue to treat with IV Ceftriaxone for now -PT ordered -Orthostatic neg #UTI; U/A showed 1+ LE, 13 WBC; WBC 20.1 -Cont IV Ceftriaxone -f/u urine culture #HTN; BP 105/67 -Hold home BP meds #Hypoalbuminemia; likely 2/2 malnutrition -ensure adequate dietary intake #Prophylaxis -SCDs; verify with pharmacy home Eliquis dose #FEN -NS @ 42 -recheck lytes in AM -Sodium-controlled diet dispo -admit to med-surg -full code -meds need to be reconciled w/ pharmacy Visit type - Emergency Visit Emergency Visit: Yes ED Registration Date: 11/02/18 Care time: The patient presented to the Emergency Department on the above date and was hospitalized for further evaluation of their emergent condition. - New Patient This patient is new to me today: Yes Date on this admission: 11/02/18 - Critical Care Critical Care patient: No
[2018-11-02 05:51] LABS: BASO % 0.3 % (0-2.0); HEMATOCRIT 37.8 % (32.4-45.2); HEMOGLOBIN 12.8 GM/dL (10.7-15.3); LYMPH % 4.8 % (8-40); MCH 28.8 pg (25.7-33.7); MCHC 33.7 g/dl (32.0-36.0); MEAN CELL VOLUME 85.2 fl (80-96); MEAN PLT VOLUME 9.8 fl (7.5-11.1); MONO % 3.2 % (3.8-10.2); NEUT % 91.7 % (42.8-82.8); PLATELET COUNT 275 K/MM3 (134-434); RBC 4.44 M/mm3 (3.60-5.2); WHITE BLOOD COUNT 20.7 K/mm3 (4.0-10.0)
[2018-11-02 06:19] LABS: INR 1.23 (0.83-1.09); PROTHROMBIN TIME (PATIENT) 14.6 SEC (9.7-13.0)
[2018-11-02 06:20] LABS: ALBUMIN 3.1 g/dl (3.4-5.0); ALK PHOS 88 U/L (45-117); ANION GAP 11 MMOL/L (8-16); BILIRUBIN,TOTAL 0.4 mg/dL (0.2-1); BLOOD UREA NITROGEN 26 mg/dL (7-18); CALCIUM 9.6 mg/dL (8.5-10.1); CHLORIDE 99 mmol/L (98-107); CO2 26 mmol/L (21-32); CREATININE 1.2 mg/dL (0.55-1.3); GLUCOSE,RANDOM 149 mg/dL (74-106); MAGNESIUM 2.5 mg/dL (1.8-2.4); PHOSPHOROUS 3.4 mg/dL (2.5-4.9); POTASSIUM 3.8 mmol/L (3.5-5.1); SGOT/AST 20 U/L (15-37); SGPT/ALT 19 U/L (13-61); SODIUM 136 mmol/L (136-145)
[2018-11-02] MEDS ORDERED: ACETAMINOPHEN 325 MG TABLET (FP) ONE ×2 (06:30→12:37)
[2018-11-02] MEDS: ACETAMINOPHEN 325 MG TABLET (FP) PO PRN ×3 (06:35→21:04)
[2018-11-02 11:20] LABS: PLATELET ESTIMATE NORMAL
[2018-11-02] MEDS: SODIUM CHLORIDE 1,000 ML IV SCH ×2 (12:36→21:05)
--- NOTE | 2018-11-02 12:46 | EKG ---
Test Reason : Blood Pressure : / mmHG Vent. Rate : 086 BPM Atrial Rate : 086 BPM P-R Int : 148 ms QRS Dur : 086 ms QT Int : 378 ms P-R-T Axes : 079 -24 061 degrees QTc Int : 452 ms NORMAL SINUS RHYTHM NONSPECIFIC T WAVE ABNORMALITY ABNORMAL ECG WHEN COMPARED WITH ECG OF 14-MAY-2018 10:07, SINUS RHYTHM HAS REPLACED JUNCTIONAL RHYTHM NONSPECIFIC T WAVE ABNORMALITY, IMPROVED IN LATERAL LEADS Confirmed by ERIC KEATING MD ([id number]) on 11/02/2018 12:45:45 PM Referred By: Confirmed By:ERIC KEATING MD
[2018-11-02] MEDS ORDERED: PATIENT'S OWN MEDICATION (NON-FORMULARY) (Potassium Chloride [Potassium Chloride] 20 MEQ) PO SCH (15:00)
[2018-11-02] MEDS ORDERED: TOPIRAMATE 25 MG PO SCH (15:00)
[2018-11-02] MEDS ORDERED: PATIENT'S OWN MEDICATION (NON-FORMULARY) (Omeprazole [Omeprazole] 40 MG) PO SCH (15:00)
--- NOTE | 2018-11-02 15:41 | PN ---
Physical Exam: SUBJECTIVE: Patient seen and examined at bedside. no acute events since admission. denies fever, chills, cp, sob, n/v/d, urinary sxs. OBJECTIVE: Vital Signs Period Temp Pulse Resp BP Sys/Douglas Pulse Ox Last 24 Hr 97.0 F-98.4 F 70-91 16-18 105-126/60-87 96-100 GENERAL: AAOx3. NAD. Resting comfortably in bed. HEENT: AT/NC. EOMI. ZULLY. MMM NECK: Limited range of motion, supple without lymphadenopathy, JVD, or masses. LUNGS: CTAB HEART: RRR. Normal S1, S2. No murmurs noted. ABDOMEN: Soft, NT/ND. Hypoactive bowel sounds in all 4Qs. No visible masses noted. Vertical surgical scar noted in mid-abdomen. : Flores catheter in place draining clear yellow urine. MUSCULOSKELETAL: No CVA tenderness. No bony deformities. UPPER EXTREMITIES: 2+ radial pulses, warm, well-perfused. No cyanosis. No clubbing. L wrist swelling and bruising noted on dorsum of hand; pain upon wrist extension/flexion. 5/5 R sided shoulder and elbow flexion/extension. 5/5 R wrist flexion/extension. LOWER EXTREMITIES: 2+ dorsalis pedis pulses, warm, well-perfused. NEUROLOGICAL: Normal speech. Unable to assess gait. Follows commands. SKIN: Chronic b/l lower extremity hyperpigmentation, tender to palpation b/l with +swelling. Laboratory Results - last 24 hr 11/01/18 11/01/18 11/01/18 18:30 18:30 18:30 WBC 20.1 H RBC 4.79 Hgb 14.0 Hct 40.8 MCV 85.0 MCH 29.2 MCHC 34.4 RDW 14.0 Plt Count 307 D MPV 9.3 Absolute Neuts (auto) 18.3 H Total Counted Neutrophils % 90.9 H Neutrophils % (Manual) 83.0 H Band Neutrophils % 4.0 Lymphocytes % 5.2 L D Lymphocytes % (Manual) 9.0 Monocytes % 3.2 L Monocytes % (Manual) 2 L Eosinophils % 0.4 Eosinophils % (Manual) 1.0 Basophils % 0.3 Basophils % (Manual) 0.0 Myelocytes % (Man) 1 Nucleated RBC % 0 Platelet Estimate Adequate PT with INR 15.10 H INR 1.28 H PTT (Actin FS) 29.2 Sodium Cancelled Potassium Cancelled Chloride Cancelled Carbon Dioxide Cancelled Anion Gap Cancelled BUN Cancelled Creatinine Cancelled Creat Clearance w eGFR Cancelled Random Glucose Cancelled Lactic Acid Calcium Cancelled Phosphorus Magnesium Total Bilirubin Cancelled AST Cancelled ALT Cancelled Alkaline Phosphatase Cancelled Total Protein Cancelled Albumin Cancelled Urine Color Urine Appearance Urine pH Ur Specific [place] Urine Protein Urine Glucose (UA) Urine Ketones Urine Blood Urine Nitrite Urine Bilirubin Urine Urobilinogen Ur Leukocyte Esterase Urine WBC (Auto) Urine RBC (Auto) Ur Epithelial Cells Urine Bacteria Hyaline Casts Urine Mucus Blood Type Antibody Screen 11/01/18 11/01/18 11/01/18 18:30 19:00 19:00 WBC RBC Hgb Hct MCV MCH MCHC RDW Plt Count MPV Absolute Neuts (auto) Total Counted Neutrophils % Neutrophils % (Manual) Band Neutrophils % Lymphocytes % Lymphocytes % (Manual) Monocytes % Monocytes % (Manual) Eosinophils % Eosinophils % (Manual) Basophils % Basophils % (Manual) Myelocytes % (Man) Nucleated RBC % Platelet Estimate PT with INR INR PTT (Actin FS) Sodium 137 Potassium 3.8 Chloride 100 Carbon Dioxide 29 Anion Gap 9 BUN 23 H Creatinine 0.8 Creat Clearance w eGFR > 60 Random Glucose 118 H Lactic Acid Calcium 9.4 Phosphorus Magnesium Total Bilirubin 0.4 AST 27 ALT 20 Alkaline Phosphatase 81 Total Protein 6.7 Albumin 3.1 L Urine Color Urine Appearance Urine pH Ur Specific [place] Urine Protein Urine Glucose (UA) Urine Ketones Urine Blood Urine Nitrite Urine Bilirubin Urine Urobilinogen Ur Leukocyte Esterase Urine WBC (Auto) Urine RBC (Auto) Ur Epithelial Cells Urine Bacteria Hyaline Casts Urine Mucus Blood Type Cancelled O POSITIVE Antibody Screen Cancelled Negative 11/02/18 11/02/18 11/02/18 01:15 05:30 05:30 WBC 20.7 H RBC 4.44 Hgb 12.8 Hct 37.8 MCV 85.2 MCH 28.8 MCHC 33.7 RDW 14.0 Plt Count 275 MPV 9.8 Absolute Neuts (auto) 19.0 H Total Counted 100 Neutrophils % 91.7 H Neutrophils % (Manual) 95.0 H* Band Neutrophils % 0.0 Lymphocytes % 4.8 L Lymphocytes % (Manual) 5.0 L Monocytes % 3.2 L Monocytes % (Manual) Eosinophils % 0.0 D Eosinophils % (Manual) Basophils % 0.3 Basophils % (Manual) Myelocytes % (Man) Nucleated RBC % 0 Platelet Estimate Normal PT with INR 14.60 H INR 1.23 H PTT (Actin FS) Sodium Potassium Chloride Carbon Dioxide Anion Gap BUN Creatinine Creat Clearance w eGFR Random Glucose Lactic Acid Calcium Phosphorus Magnesium Total Bilirubin AST ALT Alkaline Phosphatase Total Protein Albumin Urine Color Yellow Urine Appearance Slcloudy Urine pH 5.0 Ur Specific [place] 1.014 Urine Protein Negative Urine Glucose (UA) Negative Urine Ketones Negative Urine Blood Negative Urine Nitrite Negative Urine Bilirubin Negative Urine Urobilinogen Negative Ur Leukocyte Esterase 1+ H Urine WBC (Auto) 13 Urine RBC (Auto) <1 Ur Epithelial Cells Rare Urine Bacteria Many Hyaline Casts 1 Urine Mucus Rare Blood Type Antibody Screen 11/02/18 11/02/18 05:30 10:35 WBC RBC Hgb Hct MCV MCH MCHC RDW Plt Count MPV Absolute Neuts (auto) Total Counted Neutrophils % Neutrophils % (Manual) Band Neutrophils % Lymphocytes % Lymphocytes % (Manual) Monocytes % Monocytes % (Manual) Eosinophils % Eosinophils % (Manual) Basophils % Basophils % (Manual) Myelocytes % (Man) Nucleated RBC % Platelet Estimate PT with INR INR PTT (Actin FS) Sodium 136 Potassium 3.8 Chloride 99 Carbon Dioxide 26 Anion Gap 11 BUN 26 H Creatinine 1.2 Creat Clearance w eGFR 43.23 Random Glucose 149 H Lactic Acid 2.8 H* Calcium 9.6 Phosphorus 3.4 Magnesium 2.5 H Total Bilirubin 0.4 AST 20 ALT 19 Alkaline Phosphatase 88 Total Protein 7.0 Albumin 3.1 L Urine Color Urine Appearance Urine pH Ur Specific [place] Urine Protein Urine Glucose (UA) Urine Ketones Urine Blood Urine Nitrite Urine Bilirubin Urine Urobilinogen Ur Leukocyte Esterase Urine WBC (Auto) Urine RBC (Auto) Ur Epithelial Cells Urine Bacteria Hyaline Casts Urine Mucus Blood Type Antibody Screen Active Medications Generic Name Dose Route Start Last Admin Trade Name Freq PRN Reason Stop Dose Admin Acetaminophen 650 mg 11/02/18 04:26 11/02/18 12:38 Tylenol - PO 650 mg Q4H PRN Administration PAIN LEVEL 6-10 Apixaban 5 mg 11/02/18 22:00 Eliquis - PO BID RAMAN Docusate Sodium 100 mg 11/02/18 22:00 Colace - PO TID RAMAN Sodium Chloride 1,000 mls @ 75 mls/hr 11/02/18 12:10 11/02/18 12:36 Normal Saline - IV 75 mls/hr ASDIR RAMAN Administration Non-Formulary Medication 1 tab 11/03/18 10:00 Multivit-Min/Iron/Folic/Lutein [Centrum Silver Women Tablet] PO DAILY RAMAN Non-Formulary Medication 20 meq 11/02/18 15:00 Potassium Chloride [Potassium Chloride] PO DAILY RAMAN Non-Formulary Medication 10 mg 11/02/18 22:00 Simvastatin PO HS RAMAN Non-Formulary Medication 25 mg 11/02/18 15:00 Topiramate [Topamax] PO DAILY RAMAN Pantoprazole Sodium 40 mg 11/02/18 15:00 Protonix - PO DAILY RAMAN Senna tab 11/02/18 22:00 Senna - PO BID RAMAN IMAGING; * Head CT: neg for acute IC pathology * RLE CT: neg for fx; b/l hip degenerative join changes * C-Spine CT: neg for fx * Hand/wrist x-ray: pending final read * foot/ankle x-ray: pending final read * knee x-ray: pending final read * hip/pelvis x-ray: neg for fx ASSESSMENT/PLAN: 78F w/ pmhx of HLD, colon cx s/p partial colectomy, DVT (RLE on Eliquis), constipation, GERD presents to the ED s/p fall with complaints of generalized body pain. #S/p fall; likely mechanical fall given history, r/o infectious etiology vs. age -related neurological changes vs. Normal-pressure hydrocephalus -Head CT, RLE CT, hip/pelvis x-ray, and C-spine CT neg for acute pathology/ fracture -Hand/wrist, foot/ankle, knee done; await final read -Ortho contacted by ED, no need for surgical intervention at this time -Fall risk precautions -U/A suspicious for UTI; IV Ceftriaxone x1 dose given. Pt's fall could be due to infectious etiology 2/2 UTI, will continue to treat with IV Ceftriaxone for now -PT eval -Orthostatic neg #UTI; U/A showed 1+ LE, 13 WBC; WBC 20.1 -c/w IV Ceftriaxone -f/u urine culture +lactic 2.8 rpt lactic 4pm and trend #HTN; BP 105/67 -Hold home BP meds #Hypoalbuminemia; likely 2/2 malnutrition -ensure adequate dietary intake #Prophylaxis -SCDs; verify with pharmacy home Eliquis dose #FEN -increased from 45 to NS @ 75cc/hr -replete prn -Sodium-controlled diet dispo - med-surg -full code Visit type - Emergency Visit Emergency Visit: Yes ED Registration Date: 11/02/18 Care time: The patient presented to the Emergency Department on the above date and was hospitalized for further evaluation of their emergent condition. - New Patient This patient is new to me today: Yes Date on this admission: 11/02/18 - Critical Care Critical Care patient: No
[2018-11-02] MEDS: PANTOPRAZOLE 40 MG TABLET (FP) PO SCH (17:56)
[2018-11-02] MEDS: POTASSIUM CHLORIDE TABS 20 MEQ TABLET.ER (FP) PO SCH (17:56)
[2018-11-02] MEDS: TOPIRAMATE 25 MG TABLET (FP) PO SCH (17:56)
--- NOTE | 2018-11-02 19:24 | PN ---
Teaching Attending Note Name of Resident: Jj Oviedo ATTENDING PHYSICIAN STATEMENT I saw and evaluated the patient. I reviewed the resident's note and discussed the case with the resident. I agree with the resident's findings and plan as documented. SUBJECTIVE: Feeling well except for left knee pain. No fever/chills. No dysuria/ hematuria. OBJECTIVE: Afebrile, Hemodynamically stable. Last Vital Signs Temp Pulse Resp BP Pulse Ox 98.4 F 72 17 132/78 95 11/02/18 11:41 11/02/18 16:51 11/02/18 16:55 11/02/18 16:51 11/02/18 16:55 HEENT - Atraumatic, Normocephalic. Heart - S1, S2, soft SM Lungs - clear to auscultation Abdomen - Soft, non-tender. Bowel Sounds normal. Extremities - bilateral chronic venous stasis with skin changes. Neuro - AAO x 3. Moving all 4 extremities, difficulty flexing L knee due to pain Laboratory Results - last 24 hr 11/01/18 11/01/18 11/01/18 18:30 19:00 19:00 WBC RBC Hgb Hct MCV MCH MCHC RDW Plt Count MPV Absolute Neuts (auto) Total Counted Neutrophils % Neutrophils % (Manual) 83.0 H Band Neutrophils % 4.0 Lymphocytes % Lymphocytes % (Manual) 9.0 Monocytes % Monocytes % (Manual) 2 L Eosinophils % Eosinophils % (Manual) 1.0 Basophils % Basophils % (Manual) 0.0 Myelocytes % (Man) 1 Nucleated RBC % Platelet Estimate Adequate PT with INR INR Sodium 137 Potassium 3.8 Chloride 100 Carbon Dioxide 29 Anion Gap 9 BUN 23 H Creatinine 0.8 Creat Clearance w eGFR > 60 Random Glucose 118 H Lactic Acid Calcium 9.4 Phosphorus Magnesium Total Bilirubin 0.4 AST 27 ALT 20 Alkaline Phosphatase 81 Total Protein 6.7 Albumin 3.1 L Urine Color Urine Appearance Urine pH Ur Specific [place] Urine Protein Urine Glucose (UA) Urine Ketones Urine Blood Urine Nitrite Urine Bilirubin Urine Urobilinogen Ur Leukocyte Esterase Urine WBC (Auto) Urine RBC (Auto) Ur Epithelial Cells Urine Bacteria Hyaline Casts Urine Mucus Blood Type O POSITIVE Antibody Screen Negative 11/02/18 11/02/18 11/02/18 01:15 05:30 05:30 WBC 20.7 H RBC 4.44 Hgb 12.8 Hct 37.8 MCV 85.2 MCH 28.8 MCHC 33.7 RDW 14.0 Plt Count 275 MPV 9.8 Absolute Neuts (auto) 19.0 H Total Counted 100 Neutrophils % 91.7 H Neutrophils % (Manual) 95.0 H* Band Neutrophils % 0.0 Lymphocytes % 4.8 L Lymphocytes % (Manual) 5.0 L Monocytes % 3.2 L Monocytes % (Manual) Eosinophils % 0.0 D Eosinophils % (Manual) Basophils % 0.3 Basophils % (Manual) Myelocytes % (Man) Nucleated RBC % 0 Platelet Estimate Normal PT with INR 14.60 H INR 1.23 H Sodium Potassium Chloride Carbon Dioxide Anion Gap BUN Creatinine Creat Clearance w eGFR Random Glucose Lactic Acid Calcium Phosphorus Magnesium Total Bilirubin AST ALT Alkaline Phosphatase Total Protein Albumin Urine Color Yellow Urine Appearance Slcloudy Urine pH 5.0 Ur Specific [place] 1.014 Urine Protein Negative Urine Glucose (UA) Negative Urine Ketones Negative Urine Blood Negative Urine Nitrite Negative Urine Bilirubin Negative Urine Urobilinogen Negative Ur Leukocyte Esterase 1+ H Urine WBC (Auto) 13 Urine RBC (Auto) <1 Ur Epithelial Cells Rare Urine Bacteria Many Hyaline Casts 1 Urine Mucus Rare Blood Type Antibody Screen 11/02/18 11/02/18 11/02/18 05:30 10:35 15:30 WBC RBC Hgb Hct MCV MCH MCHC RDW Plt Count MPV Absolute Neuts (auto) Total Counted Neutrophils % Neutrophils % (Manual) Band Neutrophils % Lymphocytes % Lymphocytes % (Manual) Monocytes % Monocytes % (Manual) Eosinophils % Eosinophils % (Manual) Basophils % Basophils % (Manual) Myelocytes % (Man) Nucleated RBC % Platelet Estimate PT with INR INR Sodium 136 Potassium 3.8 Chloride 99 Carbon Dioxide 26 Anion Gap 11 BUN 26 H Creatinine 1.2 Creat Clearance w eGFR 43.23 Random Glucose 149 H Lactic Acid 2.8 H* 2.7 H* Calcium 9.6 Phosphorus 3.4 Magnesium 2.5 H Total Bilirubin 0.4 AST 20 ALT 19 Alkaline Phosphatase 88 Total Protein 7.0 Albumin 3.1 L Urine Color Urine Appearance Urine pH Ur Specific [place] Urine Protein Urine Glucose (UA) Urine Ketones Urine Blood Urine Nitrite Urine Bilirubin Urine Urobilinogen Ur Leukocyte Esterase Urine WBC (Auto) Urine RBC (Auto) Ur Epithelial Cells Urine Bacteria Hyaline Casts Urine Mucus Blood Type Antibody Screen Current Medications Generic Name Dose Route Start Last Admin Trade Name Freq PRN Reason Stop Dose Admin Acetaminophen 650 mg 11/02/18 04:26 11/02/18 12:38 Tylenol - PO 650 mg Q4H PRN Administration PAIN LEVEL 6-10 Apixaban 5 mg 11/02/18 22:00 Eliquis - PO BID [facility] Atorvastatin Calcium 10 mg 11/02/18 22:00 Lipitor - PO HS [facility] Docusate Sodium 100 mg 11/02/18 22:00 Colace - PO TID RAMAN Sodium Chloride 1,000 mls @ 75 mls/hr 11/02/18 12:10 11/02/18 12:36 Normal Saline - IV 75 mls/hr ASDIR RAMAN Administration Ceftriaxone Sodium 1 gm/ 50 mls @ 100 mls/hr 11/03/18 10:00 Dextrose IVPB DAILY [facility] Protocol Multivitamins/Minerals 1 each 11/03/18 10:00 Theragran-M PO DAILY RAMAN Pantoprazole Sodium 40 mg 11/02/18 15:00 11/02/18 17:56 Protonix - PO 40 mg DAILY RAMAN Administration Potassium Chloride 20 meq 11/02/18 17:00 11/02/18 17:56 K-Dur - PO 20 meq DAILY RAMAN Administration Senna 1 tab 11/02/18 22:00 Senna - PO BID RAMAN Topiramate 25 mg 11/02/18 17:15 11/02/18 17:56 Topamax - PO 25 mg DAILY RAMAN Administration Home Medications Medication Instructions Recorded Apixaban [Eliquis] 5 mg PO BID 05/03/18 Docusate Sodium [Colace] 100 mg PO TID 05/03/18 Omeprazole 40 mg PO DAILY 05/03/18 Sennosides [Senna] 8.6 mg PO BID 05/03/18 Simvastatin [Zocor -] 10 mg PO HS 05/03/18 Topiramate [Topamax] 25 mg PO DAILY 05/03/18 Multivit-Min/Iron/Folic/Lutein 1 tab PO DAILY 05/14/18 [Centrum Silver Women Tablet] Potassium Chloride 20 meq PO DAILY 05/14/18 ASSESSMENT AND PLAN: 78 year old female with HLD, Colon Cancer s/p partial Colectomy, DVT RLE on Eliquis, GERD, presented with generalized pain and weakness s/p mechanical fall despite assistance with ambulation by home theater installer. No preceeding CP/palps. No head injury or loss of consciousness. Orthostatic vitals neg. Hip/Pelvis XR, Foot/Ankle Xray, RLE CT - No fracture - awaiting radiology reports. Head CT, C spine CT - no acute findings, possible NPH on imaging. 1. Ambulatory dysfunction, possible Normal pressure hydrocephalus on CT Brain Myalgia s/p mechanical fall Hip/Pelvis XR, Foot/Ankle Xray, Head CT, C-Spine CT - no acute fracture, awaiting final reports. Will consult Neuro regarding CT Brain findings of dilated ventricles and possible NPH PT Will likely need placement. Fall precautions. 2. Possible UTI UA positive for LE and WBC, Urine Cx pending. Leukocytosis - WBC 20.7 Empirically placed on Ceftriaxone pending Urine Cx results. 3. HLD - Will hold statin and send CPK 4. Hx of RLE DVT - on Eliquis. 5. GERD - Continue PPI 6. On Topiramate - reason unclear - will need clarification. DVT PX - on Eliquis.
[2018-11-02] MEDS: DOCUSATE SODIUM 100 MG CAPSULE (FP) PO SCH (21:04)
[2018-11-02] MEDS: APIXABAN 5 MG TABLET PO SCH (21:04)
[2018-11-02] MEDS: SENNOSIDES 8.6MG TABLET (FP) PO SCH (21:05)
[2018-11-02] MEDS ORDERED: PATIENT'S OWN MEDICATION (NON-FORMULARY) (Simvastatin 10 MG) PO SCH (22:00)
[2018-11-02] MEDS ORDERED: ATORVASTATIN CA 10 MG TABLET (FP) PO SCH (22:00)
[2018-11-03] MEDS: DOCUSATE SODIUM 100 MG CAPSULE (FP) PO SCH ×3 (06:18→21:50)
[2018-11-03 08:10] LABS: BASO % 0.7 % (0-2.0); EOS % 2.4 % (0-4.5); HEMATOCRIT 29.3 % (32.4-45.2); HEMOGLOBIN 10.1 GM/dL (10.7-15.3); LYMPH % 10.8 % (8-40); MCH 29.7 pg (25.7-33.7); MCHC 34.5 g/dl (32.0-36.0); MEAN CELL VOLUME 86.1 fl (80-96); MEAN PLT VOLUME 10.9 fl (7.5-11.1); MONO % 6.3 % (3.8-10.2); NEUT % 79.8 % (42.8-82.8); PLATELET COUNT 178 K/MM3 (134-434); RBC 3.41 M/mm3 (3.60-5.2); RDW 14.2 % (11.6-15.6); WHITE BLOOD COUNT 12.8 K/mm3 (4.0-10.0)
[2018-11-03 08:39] LABS: ALBUMIN 2.6 g/dl (3.4-5.0); ALK PHOS 62 U/L (45-117); ANION GAP 6 MMOL/L (8-16); BILIRUBIN,TOTAL 0.6 mg/dL (0.2-1); BLOOD UREA NITROGEN 19 mg/dL (7-18); CALCIUM 8.3 mg/dL (8.5-10.1); CHLORIDE 107 mmol/L (98-107); CO2 27 mmol/L (21-32); CREATININE 0.8 mg/dL (0.55-1.3); GLUCOSE,RANDOM 78 mg/dL (74-106); SGOT/AST 20 U/L (15-37); SGPT/ALT 17 U/L (13-61); SODIUM 141 mmol/L (136-145); TOT PROT 5.5 g/dl (6.4-8.2)
[2018-11-03] MEDS ORDERED: DEXTROSE 5%-WATER - 50 ML IVPB ONE (09:17)
[2018-11-03] MEDS ORDERED: cefTRIAXone SODIUM 1 GM VIAL ONE (09:17)
[2018-11-03] MEDS: CEFTRIAXONE 1 GM in DEXTROSE 5%-WATER - 50 ML IVPB SCH (09:21)
[2018-11-03] MEDS: SENNOSIDES 8.6MG TABLET (FP) PO SCH ×2 (09:22→21:50)
[2018-11-03] MEDS: MULTIVITAMINS THER W-MINERALS COMBO TABLET (FP) PO SCH (09:22)
[2018-11-03] MEDS: PANTOPRAZOLE 40 MG TABLET (FP) PO SCH (09:22)
[2018-11-03] MEDS: TOPIRAMATE 25 MG TABLET (FP) PO SCH (09:22)
[2018-11-03] MEDS: APIXABAN 5 MG TABLET PO SCH ×2 (09:22→21:50)
[2018-11-03] MEDS: POTASSIUM CHLORIDE TABS 20 MEQ TABLET.ER (FP) PO SCH (09:22)
[2018-11-03] MEDS: SODIUM CHLORIDE 1,000 ML IV SCH (09:28)
[2018-11-03] MEDS: ACETAMINOPHEN 325 MG TABLET (FP) PO PRN ×2 (09:38→14:51)
[2018-11-03] MEDS ORDERED: PATIENT'S OWN MEDICATION (NON-FORMULARY) (Multivit-Min/Iron/Folic/Lutein [Centrum Silver W PO SCH (10:00)
--- NOTE | 2018-11-03 11:09 | CONSULT ---
Consult - text type - Consultation Consultation Note: Neurology CHIEF COMPLAINT: s/p fall, generalized body pain PCP: Dr. Healy HISTORY OF PRESENT ILLNESS: 78F w/ pmhx of HLD, colon cx s/p partial colectomy, DVT (RLE on Eliquis), constipation, GERD presents to the ED s/p fall with complaints of generalized body pain on day of admission. Pt states that on morning of admission she was doing her usual routine in which she was getting out of bed with the help of her aide and walking to the bathroom with the use of her rolling walker. Once the patient got to the bathroom with the help of her aide supporting her from behind, the pt noticed that the toilet seat was disconnected from the toilet, so the aide left the pt's side to fix it, but soon afterwards, the pt took a step back and fell on the floor. She denied hitting her head or losing consciousness, but she did admit to hitting her whole body on the floor and also landing on her L wrist. Pt states there was a "step up" on the floor that she might have tripped over when she took a step back. At the time, she denied fever/chills, headaches, dizziness, nausea, vomiting, chest pain, palpitations, cough, or difficulty breathing. She does report usually getting short of breath when walking a few steps around her house, but this is not new from her baseline. Upon exam, she admitted to b/l leg pain that has been chronic, but has since worsened after the fall. She denied constipation/diarrhea. CT Head, C spine reviewed and without acute changes. Patient not ambulating and fall risk. Discussed she may require rehab placement. Is getting pain medication. Also being treated for UTI. Recent Travel: Denies PAST MEDICAL HISTORY: As per HPI PAST SURGICAL HISTORY: partial colectomy cholecystectomy varicose vein sx in b/l legs (2014) double mastoid sx Social History: Smoking: Denies Alcohol: Denies Drugs: Denies Family History: Denies Allergies omeprazole magnesium [From Prilosec] Adverse Reaction (Intermediate, Verified 00:48) Rash zinc Adverse Reaction (Unknown, Verified 11/02/18 00:48) Rash HOME MEDICATIONS: Home Medications Medication Instructions Recorded Apixaban [Eliquis] 5 mg PO BID 05/03/18 Docusate Sodium [Colace] 100 mg PO TID 05/03/18 Omeprazole 40 mg PO DAILY 05/03/18 Sennosides [Senna] 8.6 mg PO BID 05/03/18 Simvastatin [Zocor -] 10 mg PO HS 05/03/18 Topiramate [Topamax] 25 mg PO DAILY 05/03/18 Multivit-Min/Iron/Folic/Lutein 1 tab PO DAILY 05/14/18 [Centrum Silver Women Tablet] Potassium Chloride 20 meq PO DAILY 05/14/18 Lisinopril 0 mg PO DAILY 11/02/18 REVIEW OF SYSTEMS CONSTITUTIONAL: Denies fever, chills, diaphoresis, generalized weakness, malaise HEENT: Denies rhinorrhea, nasal congestion, throat pain, throat swelling, difficulty swallowing, mouth swelling, ear pain, eye pain, visual changes CARDIOVASCULAR: Denies chest pain, syncope, palpitations, irregular heart rate, lightheadedness, peripheral edema RESPIRATORY: Denies cough, shortness of breath, dyspnea with exertion, orthopnea GASTROINTESTINAL: Denies abdominal pain, abdominal distension, nausea, vomiting , diarrhea, constipation, melena, hematochezia GENITOURINARY: Denies dysuria, frequency, urgency, hesitancy, hematuria MUSCULOSKELETAL: Admits to b/l LE pain, unable to ambulate NEUROLOGIC: Unable to ambulate due to pain; Denies headache, focal weakness or paresthesias, dizziness, seizure, mental status changes, bladder or bowel incontinence PHYSICAL EXAMINATION Vital Signs Temperature 98.0 F 11/03/18 08:18 Pulse Rate 72 11/03/18 08:18 Respiratory Rate 15 11/03/18 08:18 Blood Pressure 112/60 11/03/18 08:18 O2 Sat by Pulse Oximetry (%) 96 11/03/18 08:53 GENERAL: AAOx3. NAD. Resting comfortably in bed. HEENT: AT/NC. EOMI. ZULLY. Dry mucus membranes. NECK: Limited range of motion, supple without lymphadenopathy, JVD, or masses. LUNGS: CTA B/L. No wheezes, rhonchi noted. HEART: RRR. Normal S1, S2. No murmurs noted. ABDOMEN: Soft, NT/ND. Hypoactive bowel sounds in all 4Qs. No visible masses noted. Vertical surgical scar noted in mid-abdomen. : Flores catheter in place draining clear yellow urine. MUSCULOSKELETAL: No CVA tenderness. No bony deformities. UPPER EXTREMITIES: 2+ radial pulses, warm, well-perfused. No cyanosis. No clubbing. L wrist swelling and bruising noted on dorsum of hand; pain upon wrist extension/flexion. 5/5 R sided shoulder and elbow flexion/extension. 5/5 R wrist flexion/extension. LOWER EXTREMITIES: 2+ dorsalis pedis pulses, warm, well-perfused. NEUROLOGICAL: Normal speech. Not raising LE to command, sensory diminished to PP distally, gait deferred SKIN: Chronic b/l lower extremity hyperpigmentation, tender to palpation b/l with +swelling. Labs: CBCD WBC 12.8 K/mm3 (4.0-10.0) H 11/03/18 06:40 RBC 3.41 M/mm3 (3.60-5.2) L 11/03/18 06:40 Hgb 10.1 GM/dL (10.7-15.3) L 11/03/18 06:40 Hct 29.3 % (32.4-45.2) L D 11/03/18 06:40 MCV 86.1 fl (80-96) 11/03/18 06:40 MCHC 34.5 g/dl (32.0-36.0) 11/03/18 06:40 RDW 14.2 % (11.6-15.6) 11/03/18 06:40 Plt Count 275 K/MM3 (134-434) 11/02/18 05:30 MPV 10.9 fl (7.5-11.1) D 11/03/18 06:40 CMP Sodium 141 mmol/L (136-145) 11/03/18 06:40 Potassium 4.0 mmol/L (3.5-5.1) 11/03/18 06:40 Chloride 107 mmol/L (98-107) 11/03/18 06:40 Carbon Dioxide 27 mmol/L (21-32) 11/03/18 06:40 Anion Gap 6 MMOL/L (8-16) L 11/03/18 06:40 BUN 19 mg/dL (7-18) H 11/03/18 06:40 Creatinine 0.8 mg/dL (0.55-1.3) 11/03/18 06:40 Creat Clearance w eGFR > 60 (>60) 11/03/18 06:40 Random Glucose 78 mg/dL (74-106) 11/03/18 06:40 Calcium 8.3 mg/dL (8.5-10.1) L 11/03/18 06:40 Total Bilirubin 0.6 mg/dL (0.2-1) 11/03/18 06:40 AST 20 U/L (15-37) 11/03/18 06:40 ALT 17 U/L (13-61) 11/03/18 06:40 Alkaline Phosphatase 62 U/L (45-117) 11/03/18 06:40 Total Protein 5.5 g/dl (6.4-8.2) L 11/03/18 06:40 Albumin 2.6 g/dl (3.4-5.0) L 11/03/18 06:40 CARDIAC ENZYMES Creatine Kinase 103 U/L (26-192) 11/03/18 06:40 Diagnostics * Head CT: completed * RLE CT: completed * C-Spine CT: completed * Hand/wrist x-ray: completed * foot/ankle x-ray: completed * knee x-ray: completed * hip/pelvis x-ray: completed ASSESSMENT/PLAN: 78F w/ pmhx of HLD, colon cx s/p partial colectomy, DVT (RLE on Eliquis), constipation, GERD presents to the ED s/p fall with complaints of generalized body pain on day of admission. Pt states that on morning of admission she was doing her usual routine in which she was getting out of bed with the help of her aide and walking to the bathroom with the use of her rolling walker. Once the patient got to the bathroom with the help of her aide supporting her from behind, the pt noticed that the toilet seat was disconnected from the toilet, so the aide left the pt's side to fix it, but soon afterwards, the pt took a step back and fell on the floor. She denied hitting her head or losing consciousness, but she did admit to hitting her whole body on the floor and also landing on her L wrist. Pt states there was a "step up" on the floor that she might have tripped over when she took a step back. At the time, she denied fever/chills, headaches, dizziness, nausea, vomiting, chest pain, palpitations, cough, or difficulty breathing. She does report usually getting short of breath when walking a few steps around her house, but this is not new from her baseline. Upon exam, she admitted to b/l leg pain that has been chronic, but has since worsened after the fall. She denied constipation/diarrhea. CT Head, C spine reviewed and without acute changes. Monitor blood pressure, maintain normotensive range. Patient not ambulating and fall risk. Discussed she may require rehab placement. Is getting pain medication. Also being treated for UTI , continue medical mgmt. Check orthstatics as well. Increase hydration. Fall precautions.
--- NOTE | 2018-11-03 14:23 | PN ---
Teaching Attending Note Name of Resident: Isatu Mcneal ATTENDING PHYSICIAN STATEMENT I saw and evaluated the patient. I reviewed the resident's note and discussed the case with the resident. I agree with the resident's findings and plan as documented. SUBJECTIVE: Feeling well. No fever/chills. No dysuria/hematuria. Complains of some knee pain and L hand/wrist discomfort. OBJECTIVE: Afebrile, Hemodynamically stable. Last Vital Signs Temp Pulse Resp BP Pulse Ox 98.4 F 72 17 132/78 95 11/02/18 11:41 11/02/18 16:51 11/02/18 16:55 11/02/18 16:51 11/02/18 16:55 HEENT - Atraumatic, Normocephalic. Heart - S1, S2, soft SM Lungs - clear to auscultation Abdomen - Soft, non-tender. Bowel Sounds normal. Extremities - bilateral chronic venous stasis with skin changes. Left wrist/ hand swelling/ecchymoses with decreased ROM. Neurovascularly intact. Neuro - AAO x 3. Moving all 4 extremities, difficulty flexing L knee due to pain. Laboratory Results - last 24 hr 11/02/18 11/02/18 11/03/18 15:30 20:30 06:40 WBC 12.8 H RBC 3.41 L Hgb 10.1 L Hct 29.3 L D MCV 86.1 MCH 29.7 MCHC 34.5 RDW 14.2 MPV 10.9 D Absolute Neuts (auto) 10.2 H Neutrophils % 79.8 Lymphocytes % 10.8 D Monocytes % 6.3 D Eosinophils % 2.4 D Basophils % 0.7 Nucleated RBC % 0 Sodium Potassium Chloride Carbon Dioxide Anion Gap BUN Creatinine Creat Clearance w eGFR Random Glucose Lactic Acid 2.7 H* Calcium Total Bilirubin AST ALT Alkaline Phosphatase Creatine Kinase 130 Total Protein Albumin 11/03/18 06:40 WBC RBC Hgb Hct MCV MCH MCHC RDW MPV Absolute Neuts (auto) Neutrophils % Lymphocytes % Monocytes % Eosinophils % Basophils % Nucleated RBC % Sodium 141 Potassium 4.0 Chloride 107 Carbon Dioxide 27 Anion Gap 6 L BUN 19 H Creatinine 0.8 Creat Clearance w eGFR > 60 Random Glucose 78 Lactic Acid Calcium 8.3 L Total Bilirubin 0.6 AST 20 ALT 17 Alkaline Phosphatase 62 Creatine Kinase 103 Total Protein 5.5 L Albumin 2.6 L Current Medications Generic Name Dose Route Start Last Admin Trade Name Freq PRN Reason Stop Dose Admin Acetaminophen 650 mg 11/02/18 04:26 11/03/18 09:38 Tylenol - PO 650 mg Q4H PRN Administration PAIN LEVEL 6-10 Apixaban 5 mg 11/02/18 22:00 11/03/18 09:22 Eliquis - PO 5 mg BID RAMAN Administration Docusate Sodium 100 mg 11/02/18 22:00 11/03/18 13:03 Colace - PO Not Given TID RAMAN Sodium Chloride 1,000 mls @ 75 mls/hr 11/02/18 12:10 11/03/18 09:28 Normal Saline - IV 75 mls/hr ASDIR RAMAN Administration Ceftriaxone Sodium 1 gm/ 50 mls @ 100 mls/hr 11/03/18 10:00 11/03/18 09:21 Dextrose IVPB 100 mls/hr DAILY RAMAN Administration Protocol Multivitamins/Minerals 1 each 11/03/18 10:00 11/03/18 09:22 Theragran-M PO 1 each DAILY RAMAN Administration Pantoprazole Sodium 40 mg 11/02/18 15:00 11/03/18 09:22 Protonix - PO 40 mg DAILY RAMAN Administration Potassium Chloride 20 meq 11/02/18 17:00 11/03/18 09:22 K-Dur - PO 20 meq DAILY RAMAN Administration Senna 1 tab 11/02/18 22:00 11/03/18 09:22 Senna - PO 1 tab BID RAMAN Administration Topiramate 25 mg 11/02/18 17:15 11/03/18 09:22 Topamax - PO 25 mg DAILY RAMAN Administration ASSESSMENT AND PLAN: 78 year old female with HLD, Colon Cancer s/p partial Colectomy, DVT RLE on Eliquis, GERD, presented with generalized pain and weakness s/p mechanical fall despite assistance with ambulation by aboriginal home school liaison officer. No preceding CP/palps. No head injury or loss of consciousness. Orthostatic vitals neg. Hip/Pelvis XR, Foot/Ankle Xray, RLE CT - No fracture - awaiting radiology reports. Head CT, C spine CT - no acute findings, possible NPH on imaging. 1. Ambulatory dysfunction, possible Normal pressure hydrocephalus on CT Brain Myalgia s/p mechanical fall Hip/Pelvis XR, Foot/Ankle Xray, Head CT, C-Spine CT - no acute fracture, awaiting final reports. Neuro consulted regarding CT Brain findings of dilated ventricles and possible NPH PT Awaiting placement. Fall precautions. 2. UTI Urine Cx pos for LFN Bacilli Leukocytosis improving - WBC down to 12.8 from 20.7 Continue Ceftriaxone pending final ID and sens. Afebrile. 3. HLD - resume Statin. CPK 180. 4. Hx of RLE DVT - on Eliquis. 5. GERD - Continue PPI 6. On Topiramate - reason unclear - will need clarification. 7. Left Wrist swelling/ecchymoses sec to trauma - questionable fracture on Xray - for Ortho eval. DVT PX - on Eliquis.
[2018-11-03] MEDS ORDERED: KETOROLAC TROMETHAMINE 30 MG/1 ML VIAL IM ONE (16:13)
--- NOTE | 2018-11-03 17:25 | PN ---
Physical Exam: SUBJECTIVE: Patient seen this morning with no acute complaints. No events overnight. Happy and denies any pain. OBJECTIVE: Vital Signs Temperature 98.5 F 11/03/18 15:17 Pulse Rate 53 L 11/03/18 15:17 Respiratory Rate 18 11/03/18 15:17 Blood Pressure 118/53 L 11/03/18 15:17 O2 Sat by Pulse Oximetry (%) 96 11/03/18 08:53 GENERAL: The patient is awake, alert, and fully oriented, in no acute distress. HEAD: Normal with no signs of trauma. EYES: PERRL, extraocular movements intact, sclera anicteric, conjunctiva clear. No ptosis. LUNGS: Breath sounds equal, clear to auscultation bilaterally, HEART: Regular rate and rhythm, S1, S2 w EXTREMITIES:non pitting edema, warm to touch PSYCH: Normal mood, normal affect. SKIN: Warm, dry, normal turgor, no rashes or lesions noted CBC, BMP 11/03/18 06:40 11/03/18 06:40 Active Medications Acetaminophen (Tylenol -) 650 mg PO Q4H PRN PRN Reason: PAIN LEVEL 6-10 Last Admin: 11/03/18 14:51 Dose: 650 mg Apixaban (Eliquis -) 5 mg PO BID [facility] Last Admin: 11/03/18 09:22 Dose: 5 mg Docusate Sodium (Colace -) 100 mg PO TID [facility] Last Admin: 11/03/18 13:03 Dose: Not Given Ceftriaxone Sodium 1 gm/ (Dextrose) 50 mls @ 100 mls/hr IVPB DAILY [facility]; Protocol Last Admin: 11/03/18 09:21 Dose: 100 mls/hr Multivitamins/Minerals (Theragran-M) 1 each PO DAILY [facility] Last Admin: 11/03/18 09:22 Dose: 1 each Pantoprazole Sodium (Protonix -) 40 mg PO DAILY [facility] Last Admin: 11/03/18 09:22 Dose: 40 mg Potassium Chloride (K-Dur -) 20 meq PO DAILY [facility] Last Admin: 11/03/18 09:22 Dose: 20 meq Senna (Senna -) 1 tab PO BID [facility] Last Admin: 11/03/18 09:22 Dose: 1 tab Topiramate (Topamax -) 25 mg PO DAILY [facility] Last Admin: 11/03/18 09:22 Dose: 25 mg ASSESSMENT/PLAN: Patient is a 78 year old female with a history of HLD, colon cancer, DVT, constipation, and GERD who presents for s/p fall. # s/p fall, likely mechanical - head CT: moderate atrophy - per Neuro, dr. Arias; unlikely NPH, continue medical management - hand/wrist/foot/ankle xray: no fracture determined - left wrist swollen, consulted ortho for evaluation - fall risk precautions - f/u PT - tylenol for pain - 1x dose of toradol for pain #UTI - continue ceftriaxone - urine lactose fermenting gram negative bacilli - maintain munoz catheter #HTN - BP meds held #DVT ppx - Eliquis 5 mg po daily Dispo: f/u rehab placement Visit type - Emergency Visit Emergency Visit: No - New Patient This patient is new to me today: Yes Date on this admission: 11/03/18 - Critical Care Critical Care patient: No
[2018-11-04] MEDS: DOCUSATE SODIUM 100 MG CAPSULE (FP) PO SCH ×3 (06:13→22:23)
[2018-11-04] MEDS: ACETAMINOPHEN 325 MG TABLET (FP) PO PRN ×3 (08:54→18:17)
[2018-11-04 09:25] LABS: HEMATOCRIT 27.9 % (32.4-45.2); HEMOGLOBIN 9.6 GM/dL (10.7-15.3); MCH 29.7 pg (25.7-33.7); MCHC 34.4 g/dl (32.0-36.0); MEAN CELL VOLUME 86.4 fl (80-96); PLATELET COUNT 173 K/MM3 (134-434); RBC 3.22 M/mm3 (3.60-5.2); RDW 14.6 % (11.6-15.6); WHITE BLOOD COUNT 9.2 K/mm3 (4.0-10.0)
[2018-11-04 09:30] LABS: ALBUMIN 2.3 g/dl (3.4-5.0); ALK PHOS 58 U/L (45-117); ANION GAP 5 MMOL/L (8-16); BILIRUBIN,TOTAL 0.5 mg/dL (0.2-1); BLOOD UREA NITROGEN 16 mg/dL (7-18); CALCIUM 8.4 mg/dL (8.5-10.1); CHLORIDE 110 mmol/L (98-107); CO2 26 mmol/L (21-32); CREATININE 0.8 mg/dL (0.55-1.3); GLUCOSE,RANDOM 75 mg/dL (74-106); POTASSIUM 4.1 mmol/L (3.5-5.1); SGOT/AST 15 U/L (15-37); SGPT/ALT 14 U/L (13-61); SODIUM 142 mmol/L (136-145); TOT PROT 5.2 g/dl (6.4-8.2)
[2018-11-04] MEDS ORDERED: PT OWN MED DRAWER 7, Y5N ONE (09:39)
[2018-11-04] MEDS ORDERED: cefTRIAXone SODIUM 1 GM VIAL ONE (09:40)
[2018-11-04] MEDS ORDERED: DEXTROSE 5%-WATER - 50 ML IVPB ONE (09:40)
[2018-11-04] MEDS: CEFTRIAXONE 1 GM in DEXTROSE 5%-WATER - 50 ML IVPB SCH (09:46)
[2018-11-04] MEDS: PANTOPRAZOLE 40 MG TABLET (FP) PO SCH (09:46)
[2018-11-04] MEDS: POTASSIUM CHLORIDE TABS 20 MEQ TABLET.ER (FP) PO SCH (09:46)
[2018-11-04] MEDS: APIXABAN 5 MG TABLET PO SCH ×2 (09:46→22:23)
[2018-11-04] MEDS: SENNOSIDES 8.6MG TABLET (FP) PO SCH ×2 (09:51→22:26)
[2018-11-04] MEDS: MULTIVITAMINS THER W-MINERALS COMBO TABLET (FP) PO SCH (09:52)
[2018-11-04] MEDS: TOPIRAMATE 25 MG TABLET (FP) PO SCH (09:52)
--- NOTE | 2018-11-04 11:18 | PN ---
Progress Note (short form) - Note Progress Note: Neurology HISTORY OF PRESENT ILLNESS: 78F w/ pmhx of HLD, colon cx s/p partial colectomy, DVT (RLE on Eliquis), constipation, GERD presents to the ED s/p fall with complaints of generalized body pain on day of admission. Pt stated that on morning of admission she was doing her usual routine in which she was getting out of bed with the help of her aide and walking to the bathroom with the use of her rolling walker. Once the patient got to the bathroom with the help of her aide supporting her from behind, the pt noticed that the toilet seat was disconnected from the toilet, so the aide left the pt's side to fix it, but soon afterwards, the pt took a step back and fell on the floor. She denied hitting her head or losing consciousness, but she did admit to hitting her whole body on the floor and also landing on her L wrist. Pt stated there was a "step up" on the floor that she might have tripped over when she took a step back. At the time, she denied fever/chills, headaches, dizziness, nausea, vomiting, chest pain, palpitations, cough, or difficulty breathing. She reported she usually gets short of breath when walking a few steps around her house, but this is not new from her baseline. Upon exam, she admitted to b/l leg pain that has been chronic, but has since worsened after the fall. She denied constipation/diarrhea. CT Head, C spine reviewed and without acute changes. Spoke with hospitalist about CT head. Moderate atrophy with dilation of ventricles consistent with atrophy. Does not seem to be 2/2 NPH at this time. Patient not ambulating and fall risk. Discussed she may require rehab placement. Is getting pain medication. Also being treated for UTI. Neurologically without acute events overnight. Getting continued medical mgmt. Allergies Allergy/AdvReac Type Severity Reaction Status Date / Time omeprazole magnesium AdvReac Intermediate Rash Verified 11/02/18 00:48 [From Prilosec] zinc AdvReac Unknown Rash Verified 11/02/18 00:48 Active Medications Acetaminophen (Tylenol -) 650 mg PO Q4H PRN PRN Reason: PAIN LEVEL 6-10 Last Admin: 11/04/18 08:54 Dose: 650 mg Apixaban (Eliquis -) 5 mg PO BID [facility] Last Admin: 11/04/18 09:46 Dose: 5 mg Docusate Sodium (Colace -) 100 mg PO TID [facility] Last Admin: 11/04/18 06:13 Dose: 100 mg Ceftriaxone Sodium 1 gm/ (Dextrose) 50 mls @ 100 mls/hr IVPB DAILY [facility]; Protocol Last Admin: 11/04/18 09:46 Dose: 100 mls/hr Multivitamins/Minerals (Theragran-M) 1 each PO DAILY [facility] Last Admin: 11/04/18 09:52 Dose: 1 each Pantoprazole Sodium (Protonix -) 40 mg PO DAILY [facility] Last Admin: 11/04/18 09:46 Dose: 40 mg Potassium Chloride (K-Dur -) 20 meq PO DAILY [facility] Last Admin: 11/04/18 09:46 Dose: 20 meq Senna (Senna -) 1 tab PO BID [facility] Last Admin: 11/04/18 09:51 Dose: 1 tab Topiramate (Topamax -) 25 mg PO DAILY [facility] Last Admin: 11/04/18 09:52 Dose: 25 mg PHYSICAL EXAMINATION Vital Signs Temperature 98.6 F 11/04/18 06:00 Pulse Rate 87 11/04/18 06:00 Respiratory Rate 20 11/04/18 06:00 Blood Pressure 106/54 L 11/04/18 06:00 O2 Sat by Pulse Oximetry (%) 96 11/04/18 00:00 GENERAL: AAOx3. NAD. Resting comfortably in bed. HEENT: AT/NC. EOMI. ZULLY. Dry mucus membranes. NECK: Limited range of motion, supple without lymphadenopathy, JVD, or masses. LUNGS: CTA B/L. No wheezes, rhonchi noted. HEART: RRR. Normal S1, S2. No murmurs noted. ABDOMEN: Soft, NT/ND. Hypoactive bowel sounds in all 4Qs. No visible masses noted. Vertical surgical scar noted in mid-abdomen. : Flores catheter in place draining clear yellow urine. MUSCULOSKELETAL: No CVA tenderness. No bony deformities. UPPER EXTREMITIES: 2+ radial pulses, warm, well-perfused. No cyanosis. No clubbing. L wrist swelling and bruising noted on dorsum of hand; pain upon wrist extension/flexion. 5/5 R sided shoulder and elbow flexion/extension. 5/5 R wrist flexion/extension. LOWER EXTREMITIES: 2+ dorsalis pedis pulses, warm, well-perfused. NEUROLOGICAL: Normal speech. Not raising LE to command, sensory diminished to PP distally, gait deferred SKIN: Chronic b/l lower extremity hyperpigmentation, tender to palpation b/l with +swelling. Labs: CBCD WBC 9.2 K/mm3 (4.0-10.0) 11/04/18 07:45 RBC 3.22 M/mm3 (3.60-5.2) L 11/04/18 07:45 Hgb 9.6 GM/dL (10.7-15.3) L 11/04/18 07:45 Hct 27.9 % (32.4-45.2) L 11/04/18 07:45 MCV 86.4 fl (80-96) 11/04/18 07:45 MCHC 34.4 g/dl (32.0-36.0) 11/04/18 07:45 RDW 14.6 % (11.6-15.6) 11/04/18 07:45 Plt Count 173 K/MM3 (134-434) 11/04/18 07:45 MPV 10.0 fl (7.5-11.1) 11/04/18 07:45 CMP Sodium 142 mmol/L (136-145) 11/04/18 07:45 Potassium 4.1 mmol/L (3.5-5.1) 11/04/18 07:45 Chloride 110 mmol/L (98-107) H 11/04/18 07:45 Carbon Dioxide 26 mmol/L (21-32) 11/04/18 07:45 Anion Gap 5 MMOL/L (8-16) L 11/04/18 07:45 BUN 16 mg/dL (7-18) 11/04/18 07:45 Creatinine 0.8 mg/dL (0.55-1.3) 11/04/18 07:45 Creat Clearance w eGFR > 60 (>60) 11/04/18 07:45 Random Glucose 75 mg/dL (74-106) 11/04/18 07:45 Calcium 8.4 mg/dL (8.5-10.1) L 11/04/18 07:45 Total Bilirubin 0.5 mg/dL (0.2-1) 11/04/18 07:45 AST 15 U/L (15-37) 11/04/18 07:45 ALT 14 U/L (13-61) 11/04/18 07:45 Alkaline Phosphatase 58 U/L (45-117) 11/04/18 07:45 Total Protein 5.2 g/dl (6.4-8.2) L 11/04/18 07:45 Albumin 2.3 g/dl (3.4-5.0) L 11/04/18 07:45 CARDIAC ENZYMES Creatine Kinase 103 U/L (26-192) 11/03/18 06:40 Diagnostics * Head CT: completed * RLE CT: completed * C-Spine CT: completed * Hand/wrist x-ray: completed * foot/ankle x-ray: completed * knee x-ray: completed * hip/pelvis x-ray: completed ASSESSMENT/PLAN: 78F w/ pmhx of HLD, colon cx s/p partial colectomy, DVT (RLE on Eliquis), constipation, GERD presents to the ED s/p fall with complaints of generalized body pain on day of admission. Pt stated that on morning of admission she was doing her usual routine in which she was getting out of bed with the help of her aide and walking to the bathroom with the use of her rolling walker. Once the patient got to the bathroom with the help of her aide supporting her from behind, the pt noticed that the toilet seat was disconnected from the toilet, so the aide left the pt's side to fix it, but soon afterwards, the pt took a step back and fell on the floor. She denied hitting her head or losing consciousness, but she did admit to hitting her whole body on the floor and also landing on her L wrist. Pt stated there was a "step up" on the floor that she might have tripped over when she took a step back. At the time, she denied fever/chills, headaches, dizziness, nausea, vomiting, chest pain, palpitations, cough, or difficulty breathing. She reported she usually gets short of breath when walking a few steps around her house, but this is not new from her baseline. Upon exam, she admitted to b/l leg pain that has been chronic, but has since worsened after the fall. She denied constipation/diarrhea. CT Head, C spine reviewed and without acute changes. Spoke with hospitalist about CT head. Moderate atrophy with dilation of ventricles consistent with atrophy. Does not seem to be 2/2 NPH at this time. Monitor blood pressure, maintain normotensive range. Patient not ambulating and fall risk. Discussed she may require rehab placement. Is getting pain medication. Also being treated for UTI. Monitor orthstatics as well. Increase hydration. Fall precautions. Physical therapy as tolerated, may benefit from rehab. Continue medical optimization.
--- NOTE | 2018-11-04 11:34 | CON.ORTH ---
Consult Consult Specialty:: ortho Reason for Consultation:: left wrist - History of Present Illness History of Present Illness: 78y F c/o L wrist pain after trip and fall -happened 3d ago -has hx of b/l LE chronic pain -fell onto L wrist -prev hx wrist fx tx conservatively in 2016 -notes pain is improving -worse with motion -improved at rest -no numbness or tingling -notes no acute pain elsewhere - History Source History Provided By: Patient, Medical Record - Past Medical History Cardio/Vascular: Yes: Hyperlipdemia Gastrointestinal: Yes: Cancer (colon) - Past Surgical History Past Surgical History: Yes: Cholecystectomy, Colectomy (colon resection. ? 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 History of Recent Travel: No Home Medications - Allergies Allergies/Adverse Reactions: Allergies Allergy/AdvReac Type Severity Reaction Status Date / Time omeprazole magnesium AdvReac Intermediate Rash Verified 11/02/18 00:48 [From Prilosec] zinc AdvReac Unknown Rash Verified 11/02/18 00:48 - Home Medications Home Medications: Ambulatory Orders Apixaban [Eliquis] 5 mg PO BID 05/03/18 Docusate Sodium [Colace] 100 mg PO TID 05/03/18 Omeprazole 40 mg PO DAILY 05/03/18 Sennosides [Senna] 8.6 mg PO BID 05/03/18 Simvastatin [Zocor -] 10 mg PO HS 05/03/18 Topiramate [Topamax] 25 mg PO DAILY 05/03/18 Multivit-Min/Iron/Folic/Lutein [Centrum Silver Women Tablet] 1 tab PO DAILY Potassium Chloride 20 meq PO DAILY 05/14/18 Review of Systems - Review of Systems Constitutional: denies: Chills, Fever, Night Sweats Eyes: denies: Recent Change in Vision HENT: denies: Hearing Loss, Throat Pain, Toothache Cardiovascular: denies: Chest Pain, Palpitations, Shortness of Breath Gastrointestinal: denies: Diarrhea, Nausea, Vomiting Physical Exam for Ortho Vital Signs: Vital Signs Temperature 98.6 F 11/04/18 06:00 Pulse Rate 87 11/04/18 06:00 Respiratory Rate 20 11/04/18 06:00 Blood Pressure 106/54 L 11/04/18 06:00 O2 Sat by Pulse Oximetry (%) 96 11/04/18 00:00 Constitutional: Yes: Well Nourished, No Distress, Calm Labs: CBC, BMP 11/04/18 07:45 11/04/18 07:45 INR, PTT INR 1.23 (0.83-1.09) H 11/02/18 05:30 - Upper Extremity Wrist: Yes: Left, Deformity (chronic), Ecchymosis (dorsally over hand), Pain ( mid pain with long winder tender), Swelling (mild). No: Erythema, Laceration, Tenderness ( over wrist, hand, snuffbox) - Affected Extremity Motor Strength: 5/5: Left Arm Peripheral Pulses: 2+ Left Radial Neuro/Vascular Assessment: Yes: Normal Sensation Imaging - Results X-ray: Report Reviewed, Image Reviewed (chronic deformity from previous healed fracture, no acute fracture seen) Problem List - Problems (1) Contusion of left wrist, initial encounter Assessment/Plan: I reviewed today's findings with Nancy -x-rays show no evidence of acute fracture -ok to wbat on wrist -can use wrist brace for using walker -can consider OT if pain does not continue to improve -ok to follow up as outpatient Code(s): S60.212A - CONTUSION OF LEFT WRIST, INITIAL ENCOUNTER
--- NOTE | 2018-11-04 18:58 | PN ---
Progress Note (short form) - Note Progress Note: SUBJECTIVE: Feeling well. No fever/chills. No dysuria/hematuria. Complains of some mild R knee pain and L hand/wrist discomfort. OBJECTIVE: Afebrile, Hemodynamically stable. Last Vital Signs Temp Pulse Resp BP Pulse Ox 98.0 F 89 20 122/55 L 95 11/04/18 14:23 11/04/18 14:23 11/04/18 09:00 11/04/18 14:23 11/04/18 10:00 Heart - S1, S2, soft SM Lungs - clear to auscultation Abdomen - Soft, non-tender. Bowel Sounds normal. Extremities - bilateral chronic venous stasis with skin changes. Left wrist/ hand swelling/ecchymoses with mildly decreased ROM. Neurovascularly intact. Neuro - AAO x 3. Moving all 4 extremities, difficulty flexing L knee due to pain. Laboratory Results - last 24 hr 11/04/18 11/04/18 07:45 07:45 WBC 9.2 RBC 3.22 L Hgb 9.6 L Hct 27.9 L MCV 86.4 MCH 29.7 MCHC 34.4 RDW 14.6 Plt Count 173 MPV 10.0 Sodium 142 Potassium 4.1 Chloride 110 H Carbon Dioxide 26 Anion Gap 5 L BUN 16 Creatinine 0.8 Creat Clearance w eGFR > 60 Random Glucose 75 Calcium 8.4 L Total Bilirubin 0.5 AST 15 ALT 14 Alkaline Phosphatase 58 Total Protein 5.2 L Albumin 2.3 L Current Medications Generic Name Dose Route Start Last Admin Trade Name Freq PRN Reason Stop Dose Admin Acetaminophen 650 mg 11/02/18 04:26 11/04/18 18:17 Tylenol - PO 650 mg Q4H PRN Administration PAIN LEVEL 6-10 Apixaban 5 mg 11/02/18 22:00 11/04/18 09:46 Eliquis - PO 5 mg BID RAMAN Administration Docusate Sodium 100 mg 11/02/18 22:00 11/04/18 13:00 Colace - PO Not Given TID RAMAN Ceftriaxone Sodium 1 gm/ 50 mls @ 100 mls/hr 11/03/18 10:00 11/04/18 09:46 Dextrose IVPB 100 mls/hr DAILY RAMAN Administration Protocol Multivitamins/Minerals 1 each 11/03/18 10:00 11/04/18 09:52 Theragran-M PO 1 each DAILY RAMAN Administration Pantoprazole Sodium 40 mg 11/02/18 15:00 11/04/18 09:46 Protonix - PO 40 mg DAILY RAMAN Administration Potassium Chloride 20 meq 11/02/18 17:00 11/04/18 09:46 K-Dur - PO 20 meq DAILY RAMAN Administration Senna 1 tab 11/02/18 22:00 11/04/18 09:51 Senna - PO 1 tab BID RAMAN Administration Topiramate 25 mg 11/02/18 17:15 11/04/18 09:52 Topamax - PO 25 mg DAILY RAMAN Administration ASSESSMENT AND PLAN: 78 year old female with HLD, Colon Cancer s/p partial Colectomy, DVT RLE on Eliquis, GERD, presented with generalized pain and weakness s/p mechanical fall despite assistance with ambulation by test kitchen home economist. No preceding CP/palps. No head injury or loss of consciousness. Orthostatic vitals neg. Hip/Pelvis XR, Foot/Ankle Xray, RLE CT - No fracture - awaiting radiology reports. Head CT, C spine CT - no acute findings, possible NPH on imaging. 1. Ambulatory dysfunction Myalgia s/p mechanical fall Hip/Pelvis XR, Foot/Ankle Xray, Head CT, C-Spine CT - no acute fracture, awaiting final reports. Neuro consulted regarding CT Brain findings of dilated ventricles and possible NPH - no evidence for NPH as per Neurology. PT Awaiting placement. Fall precautions. 2. UTI Urine Cx pos for Klebsiella Leukocytosis improving - WBC down to 9.2 from 20.7 Continue Ceftriaxone Afebrile. 3. HLD - resume Statin. CPK 180. 4. Hx of RLE DVT - on Eliquis. 5. GERD - Continue PPI 6. On Topiramate - reason unclear - still no clarification from family re: reason for topiramate. Patient does not know. 7. Left Wrist swelling/ecchymoses sec to trauma - evaluatd by Ortho - no fracture appreciated, cleared for weight-bearing at wrist. DVT PX - on Eliquis. Visit type - Emergency Visit Emergency Visit: Yes ED Registration Date: 11/02/18 Care time: The patient presented to the Emergency Department on the above date and was hospitalized for further evaluation of their emergent condition. - New Patient This patient is new to me today: No - Critical Care Critical Care patient: No - Discharge Referral Referred to [facility] Med P.C.: No
[2018-11-04] MEDS ORDERED: KETOROLAC TROMETHAMINE 15 MG/ML VIAL IM ONE (20:37)
[2018-11-05] MEDS: ACETAMINOPHEN 325 MG TABLET (FP) PO PRN ×2 (04:57→11:33)
[2018-11-05] MEDS: DOCUSATE SODIUM 100 MG CAPSULE (FP) PO SCH ×3 (06:24→21:34)
[2018-11-05 08:27] LABS: BASO % 0.5 % (0-2.0); EOS % 6.9 % (0-4.5); HEMATOCRIT 28.6 % (32.4-45.2); HEMOGLOBIN 9.8 GM/dL (10.7-15.3); LYMPH % 12.6 % (8-40); MCH 29.7 pg (25.7-33.7); MCHC 34.2 g/dl (32.0-36.0); MEAN CELL VOLUME 86.8 fl (80-96); MEAN PLT VOLUME 9.7 fl (7.5-11.1); MONO % 5.8 % (3.8-10.2); NEUT % 74.2 % (42.8-82.8); PLATELET COUNT 195 K/MM3 (134-434); RBC 3.29 M/mm3 (3.60-5.2); RDW 14.6 % (11.6-15.6); WHITE BLOOD COUNT 9.9 K/mm3 (4.0-10.0)
[2018-11-05] MEDS ORDERED: DEXTROSE 5%-WATER - 50 ML IVPB ONE (10:18)
[2018-11-05] MEDS ORDERED: cefTRIAXone SODIUM 1 GM VIAL ONE (10:18)
[2018-11-05] MEDS: CEFTRIAXONE 1 GM in DEXTROSE 5%-WATER - 50 ML IVPB SCH (10:21)
[2018-11-05] MEDS: TOPIRAMATE 25 MG TABLET (FP) PO SCH (10:22)
[2018-11-05] MEDS: POTASSIUM CHLORIDE TABS 20 MEQ TABLET.ER (FP) PO SCH (10:22)
[2018-11-05] MEDS: PANTOPRAZOLE 40 MG TABLET (FP) PO SCH (10:22)
[2018-11-05] MEDS: MULTIVITAMINS THER W-MINERALS COMBO TABLET (FP) PO SCH (10:22)
[2018-11-05] MEDS: SENNOSIDES 8.6MG TABLET (FP) PO SCH ×2 (10:22→21:34)
[2018-11-05] MEDS: APIXABAN 5 MG TABLET PO SCH ×2 (10:22→21:34)
--- NOTE | 2018-11-05 15:44 | DS ---
Physical Exam: SUBJECTIVE: Patient seen and examined at bedside. no acute events overnight. Feeling well. Complains of some mild R knee pain and L hand/wrist discomfort. denies fever, chills, cp, sob, n/v/d, urinary sxs. pt appealing dc. OBJECTIVE: Vital Signs Period Temp Pulse Resp BP Sys/Douglas Pulse Ox Last 24 Hr 97.7 F-98.1 F 86-107 18-20 127-142/61-87 97-98 PHYSICAL EXAM GENERAL: AAOx3. NAD. Resting comfortably in bed. HEENT: AT/NC. EOMI. ZULLY. MMM NECK: Limited range of motion, supple without lymphadenopathy, JVD, or masses. LUNGS: CTAB HEART: RRR. Normal S1, S2. No murmurs noted. ABDOMEN: Soft, NT/ND. Hypoactive bowel sounds in all 4Qs. No visible masses noted. Vertical surgical scar noted in mid-abdomen. : Flores catheter in place draining clear yellow urine. MUSCULOSKELETAL: No CVA tenderness. No bony deformities. UPPER EXTREMITIES: 2+ radial pulses, warm, well-perfused. No cyanosis. No clubbing. L wrist swelling and bruising noted on dorsum of hand; pain upon wrist extension/flexion. 5/5 R sided shoulder and elbow flexion/extension. 5/5 R wrist flexion/extension. LOWER EXTREMITIES: 2+ dorsalis pedis pulses, warm, well-perfused. NEUROLOGICAL: Normal speech. Unable to assess gait. Follows commands. SKIN: Chronic b/l lower extremity hyperpigmentation, tender to palpation b/l with +swelling. LABS Laboratory Results - last 24 hr 11/05/18 07:00 WBC 9.9 RBC 3.29 L Hgb 9.8 L Hct 28.6 L MCV 86.8 MCH 29.7 MCHC 34.2 RDW 14.6 Plt Count 195 MPV 9.7 Absolute Neuts (auto) 7.4 Neutrophils % 74.2 Lymphocytes % 12.6 Monocytes % 5.8 Eosinophils % 6.9 H D Basophils % 0.5 Nucleated RBC % 0 HOSPITAL COURSE: Date of Admission:11/02/18 Date of Discharge: 11/05/18 78 yo F w/ PMH HLD, Colon Cancer s/p partial Colectomy, DVT RLE on Eliquis 5 bid , GERD, p/w generalized pain and weakness s/p mechanical fall despite assistance with ambulation by home office claims examiner. No head injury or LOC. Orthostatic vitals neg. Hip/Pelvis XR, Foot/Ankle Xray, Head CT, C-Spine CT showed no acute frx. Neuro consulted for possible NPH (dilated ventricles) per CT findings, however unlikley and findings more consistent and likely 2/2 mild brain atrophy. pt tx w/ pain meds. evaluated by ortho for Left Wrist swelling/ ecchymoses (hx of old frx), no surgical intervention as no evidence of acute/ new frx. ok to wbat on wrist, can use wrist brace for using walker, can consider OT if pain does not continue to improve, and pt will f/u outpt. pt seen by PT. pt requested NH placement. placement found by SW but then pt does not feel ready and is appealing dc. Of note UTI found - Urine Cx pos for Klebsiella w/ Leukocytosis 20.7, improved to 9.2. pt tx w/ IV Ceftriaxone. pt remained Afebrile. Of note pt Hgb dropped from 14 to 9.8 w/ fluids and abx tx. however there was a drop in all cell lines so likely 2/2 hemoconcentration and resolving infx. pt will f/u outpt for anemia w/u for suspected normocytic anemia Per EMR, pt med list an admission shows taking Topiramate - reason unclear - no clarification from family re:reason for topiramate. Patient does not know. pt instructed to stop taking med and to f/u w/ pcp. Pt is stable and ready for dc to MD for correction care. Minutes to complete discharge: 39 Discharge Summary Reason For Visit: UNABLE TO WALK Current Active Problems Contusion of left wrist, initial encounter (Acute) Unable to ambulate (Acute) Condition: Stable - Instructions Diet, Activity, Other Instructions: you came in because you fell at home. your xray imaging showed no acute fractures. we gave you pain meds and your symptoms improved. You were seen by orthopedist and physical therapy. 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 we gave you antibiotics for the infection Of note your blood levels (hemaglobin) were a little low. please follow up with your primary care physician for further work up. Of note your white blood cells called eosinophils were a little elevated. please follow up with your primary care physician for further work up. Please resume your home meds When you came to the hospital it listed on your home med list Topiramate, however you denied taking the medicine. Please clarify with your primary care physician if you are in fact taking this medication. Please follow up with your primary care physician within 1 week Please follow up with orthopedist Dr. Rm within 2 week If you experience any more falls, or any fever, chills, chest pain, shortness of breath, abdominal pain, nausea, vomit, diarrhea, blood in urine please call 911 or go to the ER. Referrals: Jorje Healy MD [Primary Care Provider] - 1 Week Fransisco Rm MD [Staff Physician] - 2 Weeks Disposition: ALF FACILITY - Home Medications Comprehensive Discharge Medication List: Ambulatory Orders Apixaban [Eliquis] 5 mg PO BID 05/03/18 Docusate Sodium [Colace] 100 mg PO TID 05/03/18 Omeprazole 40 mg PO DAILY 05/03/18 Sennosides [Senna] 8.6 mg PO BID 05/03/18 Simvastatin [Zocor -] 10 mg PO HS 05/03/18 Multivit-Min/Iron/Folic/Lutein [Centrum Silver Women Tablet] 1 tab PO DAILY Potassium Chloride 20 meq PO DAILY 05/14/18 This patient is new to me today: Yes Date on this admission: 11/05/18 Emergency Visit: Yes ED Registration Date: 11/02/18 Care time: The patient presented to the Emergency Department on the above date and was hospitalized for further evaluation of their emergent condition. Critical Care patient: No - Discharge Referral Referred to [facility] No
--- NOTE | 2018-11-05 16:13 | PN ---
Teaching Attending Note Name of Resident: Mynor Carballo ATTENDING PHYSICIAN STATEMENT I saw and evaluated the patient. I reviewed the resident's note and discussed the case with the resident. I agree with the resident's findings and plan as documented. SUBJECTIVE: Feeling well. No fever/chills. No dysuria/hematuria. Complains of some mild R knee pain. OBJECTIVE: Afebrile, Hemodynamically stable. Last Vital Signs Temp Pulse Resp BP Pulse Ox 98.1 F 88 20 127/61 98 11/05/18 14:53 11/05/18 14:53 11/05/18 09:58 11/05/18 14:53 11/05/18 09:00 Heart - S1, S2, soft SM Lungs - clear to auscultation Abdomen - Soft, non-tender. Bowel Sounds normal. Extremities - bilateral chronic venous stasis with skin changes. Left wrist/ hand swelling/ecchymoses with mildly decreased ROM. Neurovascularly intact. Neuro - AAO x 3. Moving all 4 extremities, difficulty flexing L knee due to pain. Laboratory Results - last 24 hr 11/05/18 07:00 WBC 9.9 RBC 3.29 L Hgb 9.8 L Hct 28.6 L MCV 86.8 MCH 29.7 MCHC 34.2 RDW 14.6 Plt Count 195 MPV 9.7 Absolute Neuts (auto) 7.4 Neutrophils % 74.2 Lymphocytes % 12.6 Monocytes % 5.8 Eosinophils % 6.9 H D Basophils % 0.5 Nucleated RBC % 0 Current Medications Generic Name Dose Route Start Last Admin Trade Name Freq PRN Reason Stop Dose Admin Acetaminophen 650 mg 11/02/18 04:26 11/05/18 11:33 Tylenol - PO 650 mg Q4H PRN Administration PAIN LEVEL 6-10 Apixaban 5 mg 11/02/18 22:00 11/05/18 10:22 Eliquis - PO 5 mg BID RAMAN Administration Docusate Sodium 100 mg 11/02/18 22:00 11/05/18 14:12 Colace - PO Not Given TID RAMAN Ceftriaxone Sodium 1 gm/ 50 mls @ 100 mls/hr 11/03/18 10:00 11/05/18 10:21 Dextrose IVPB 100 mls/hr DAILY RAMAN Administration Protocol Multivitamins/Minerals 1 each 11/06/18 10:00 Theragran-M PO DAILY RAMAN Pantoprazole Sodium 40 mg 11/02/18 15:00 11/05/18 10:22 Protonix - PO 40 mg DAILY RAMAN Administration Potassium Chloride 20 meq 11/02/18 17:00 11/05/18 10:22 K-Dur - PO 20 meq DAILY RAMAN Administration Senna 1 tab 11/02/18 22:00 11/05/18 10:22 Senna - PO 1 tab BID RAMAN Administration Topiramate 25 mg 11/02/18 17:15 11/05/18 10:22 Topamax - PO 25 mg DAILY RAMAN Administration ASSESSMENT AND PLAN: 78 year old female with HLD, Colon Cancer s/p partial Colectomy, DVT RLE on Eliquis, GERD, presented with generalized pain and weakness s/p mechanical fall despite assistance with ambulation by home therapy teacher. No preceding CP/palps. No head injury or loss of consciousness. Orthostatic vitals neg. Hip/Pelvis XR, Foot/Ankle Xray, RLE CT - No fracture - awaiting radiology reports. Head CT, C spine CT - no acute findings, possible NPH on imaging. 1. Ambulatory dysfunction Myalgia s/p mechanical fall Hip/Pelvis XR, Foot/Ankle Xray, Head CT, C-Spine CT - no acute fracture, awaiting final reports. Neuro consulted regarding CT Brain findings of dilated ventricles and possible NPH - no evidence for NPH as per Neurology. PT. Fall precautions. Still Awaiting placement. 2. UTI Urine Cx pos for Klebsiella Leukocytosis improving - WBC down to 9.9 from 20.7 Received 3 days IV Ceftriaxone Afebrile. Hemodynamically Stable. 3. HLD - resume Statin. CPK 180. 4. Hx of RLE DVT - on Eliquis. 5. GERD - Continue PPI 6. On Topiramate - reason unclear - still no clarification from family re: reason for topiramate. Patient does not know. 7. Left Wrist swelling/ecchymoses sec to trauma - evaluatd by Ortho - no fracture appreciated, cleared for weight-bearing at wrist. DVT PX - on Eliquis. Medically clear for discharge to SNF/Rehab
[2018-11-06] MEDS: DOCUSATE SODIUM 100 MG CAPSULE (FP) PO SCH ×4 (06:22→22:28)
--- NOTE | 2018-11-06 09:19 | PN ---
Progress Note (short form) - Note Progress Note: Neurology HISTORY OF PRESENT ILLNESS: 78F w/ pmhx of HLD, colon cx s/p partial colectomy, DVT (RLE on Eliquis), constipation, GERD presents to the ED s/p fall with complaints of generalized body pain on day of admission. Pt stated that on morning of admission she was doing her usual routine in which she was getting out of bed with the help of her aide and walking to the bathroom with the use of her rolling walker. Once the patient got to the bathroom with the help of her aide supporting her from behind, the pt noticed that the toilet seat was disconnected from the toilet, so the aide left the pt's side to fix it, but soon afterwards, the pt took a step back and fell on the floor. She denied hitting her head or losing consciousness, but she did admit to hitting her whole body on the floor and also landing on her L wrist. Pt stated there was a "step up" on the floor that she might have tripped over when she took a step back. At the time, she denied fever/chills, headaches, dizziness, nausea, vomiting, chest pain, palpitations, cough, or difficulty breathing. She reported she usually gets short of breath when walking a few steps around her house, but this is not new from her baseline. Upon exam, she admitted to b/l leg pain that has been chronic, but has since worsened after the fall. She denied constipation/diarrhea. CT Head, C spine reviewed and without acute changes. Spoke with hospitalist about CT head. Moderate atrophy with dilation of ventricles consistent with atrophy. Does not seem to be 2/2 NPH at this time. Patient not ambulating and fall risk. Being planned for placement. Treated for UTI. Neurologically without acute events overnight. Planned for d/c today. Patient denies new symptoms or recurrence of events. Allergies Allergy/AdvReac Type Severity Reaction Status Date / Time omeprazole magnesium AdvReac Intermediate Rash Verified 11/02/18 00:48 [From Prilosec] zinc AdvReac Unknown Rash Verified 11/02/18 00:48 Active Medications Acetaminophen (Tylenol -) 650 mg PO Q4H PRN PRN Reason: PAIN LEVEL 6-10 Last Admin: 11/05/18 11:33 Dose: 650 mg Apixaban (Eliquis -) 5 mg PO BID [facility] Last Admin: 11/05/18 21:34 Dose: 5 mg Docusate Sodium (Colace -) 100 mg PO TID [facility] Last Admin: 11/06/18 06:22 Dose: 100 mg Ceftriaxone Sodium 1 gm/ (Dextrose) 50 mls @ 100 mls/hr IVPB DAILY [facility]; Protocol Last Admin: 11/05/18 10:21 Dose: 100 mls/hr Multivitamins/Minerals (Theragran-M) 1 each PO DAILY [facility] Pantoprazole Sodium (Protonix -) 40 mg PO DAILY [facility] Last Admin: 11/05/18 10:22 Dose: 40 mg Potassium Chloride (K-Dur -) 20 meq PO DAILY [facility] Last Admin: 11/05/18 10:22 Dose: 20 meq Senna (Senna -) 1 tab PO BID [facility] Last Admin: 11/05/18 21:34 Dose: 1 tab Topiramate (Topamax -) 25 mg PO DAILY [facility] Last Admin: 11/05/18 10:22 Dose: 25 mg PHYSICAL EXAMINATION Vital Signs Period Temp Pulse Resp BP Sys/Douglas Pulse Ox Last 24 Hr 97.7 F-98.5 F 86-93 20-20 127-150/61-78 98 GENERAL: AAOx3. NAD. Resting comfortably in bed. HEENT: AT/NC. EOMI. ZULLY. Dry mucus membranes. NECK: Limited range of motion, supple without lymphadenopathy, JVD, or masses. LUNGS: CTA B/L. No wheezes, rhonchi noted. HEART: RRR. Normal S1, S2. No murmurs noted. ABDOMEN: Soft, NT/ND. Hypoactive bowel sounds in all 4Qs. No visible masses noted. Vertical surgical scar noted in mid-abdomen. : Flores catheter in place draining clear yellow urine. MUSCULOSKELETAL: No CVA tenderness. No bony deformities. UPPER EXTREMITIES: 2+ radial pulses, warm, well-perfused. No cyanosis. No clubbing. L wrist swelling and bruising noted on dorsum of hand; pain upon wrist extension/flexion. 5/5 R sided shoulder and elbow flexion/extension. 5/5 R wrist flexion/extension. LOWER EXTREMITIES: 2+ dorsalis pedis pulses, warm, well-perfused. NEUROLOGICAL: Normal speech. Not raising LE to command, sensory diminished to PP distally, gait deferred SKIN: Chronic b/l lower extremity hyperpigmentation, tender to palpation b/l with +swelling. CBCD WBC 9.9 K/mm3 (4.0-10.0) 11/05/18 07:00 RBC 3.29 M/mm3 (3.60-5.2) L 11/05/18 07:00 Hgb 9.8 GM/dL (10.7-15.3) L 11/05/18 07:00 Hct 28.6 % (32.4-45.2) L 11/05/18 07:00 MCV 86.8 fl (80-96) 11/05/18 07:00 MCHC 34.2 g/dl (32.0-36.0) 11/05/18 07:00 RDW 14.6 % (11.6-15.6) 11/05/18 07:00 Plt Count 195 K/MM3 (134-434) 11/05/18 07:00 MPV 9.7 fl (7.5-11.1) 11/05/18 07:00 CMP Sodium 142 mmol/L (136-145) 11/04/18 07:45 Potassium 4.1 mmol/L (3.5-5.1) 11/04/18 07:45 Chloride 110 mmol/L (98-107) H 11/04/18 07:45 Carbon Dioxide 26 mmol/L (21-32) 11/04/18 07:45 Anion Gap 5 MMOL/L (8-16) L 11/04/18 07:45 BUN 16 mg/dL (7-18) 11/04/18 07:45 Creatinine 0.8 mg/dL (0.55-1.3) 11/04/18 07:45 Creat Clearance w eGFR > 60 (>60) 11/04/18 07:45 Random Glucose 75 mg/dL (74-106) 11/04/18 07:45 Calcium 8.4 mg/dL (8.5-10.1) L 11/04/18 07:45 Total Bilirubin 0.5 mg/dL (0.2-1) 11/04/18 07:45 AST 15 U/L (15-37) 11/04/18 07:45 ALT 14 U/L (13-61) 11/04/18 07:45 Alkaline Phosphatase 58 U/L (45-117) 11/04/18 07:45 Total Protein 5.2 g/dl (6.4-8.2) L 11/04/18 07:45 Albumin 2.3 g/dl (3.4-5.0) L 11/04/18 07:45 CARDIAC ENZYMES Creatine Kinase 103 U/L (26-192) 11/03/18 06:40 Diagnostics * Head CT: completed * RLE CT: completed * C-Spine CT: completed * Hand/wrist x-ray: completed * foot/ankle x-ray: completed * knee x-ray: completed * hip/pelvis x-ray: completed ASSESSMENT/PLAN: 78F w/ pmhx of HLD, colon cx s/p partial colectomy, DVT (RLE on Eliquis), constipation, GERD presents to the ED s/p fall with complaints of generalized body pain on day of admission. Pt stated that on morning of admission she was doing her usual routine in which she was getting out of bed with the help of her aide and walking to the bathroom with the use of her rolling walker. Once the patient got to the bathroom with the help of her aide supporting her from behind, the pt noticed that the toilet seat was disconnected from the toilet, so the aide left the pt's side to fix it, but soon afterwards, the pt took a step back and fell on the floor. She denied hitting her head or losing consciousness, but she did admit to hitting her whole body on the floor and also landing on her L wrist. Pt stated there was a "step up" on the floor that she might have tripped over when she took a step back. At the time, she denied fever/chills, headaches, dizziness, nausea, vomiting, chest pain, palpitations, cough, or difficulty breathing. She reported she usually gets short of breath when walking a few steps around her house, but this is not new from her baseline. Upon exam, she admitted to b/l leg pain that has been chronic, but has since worsened after the fall. She denied constipation/diarrhea. CT Head, C spine reviewed and without acute changes. Spoke with hospitalist about CT head. Moderate atrophy with dilation of ventricles consistent with atrophy. Does not seem to be 2/2 NPH at this time. Monitor blood pressure, maintain normotensive range. Patient not ambulating and fall risk. Patient not ambulating and fall risk. Being planned for placement. Treated for UTI. Neurologically without acute events overnight. Planned for d/c today. Patient denies new symptoms or recurrence of events.
[2018-11-06] MEDS ORDERED: DEXTROSE 5%-WATER - 50 ML IVPB ONE (10:38)
[2018-11-06] MEDS ORDERED: cefTRIAXone SODIUM 1 GM VIAL ONE (10:38)
[2018-11-06] MEDS: PANTOPRAZOLE 40 MG TABLET (FP) PO SCH (10:44)
[2018-11-06] MEDS: APIXABAN 5 MG TABLET PO SCH ×2 (10:44→22:25)
[2018-11-06] MEDS: MULTIVITAMINS THER W-MINERALS COMBO TABLET (FP) PO SCH (10:44)
[2018-11-06] MEDS: SENNOSIDES 8.6MG TABLET (FP) PO SCH ×3 (10:44→22:28)
[2018-11-06] MEDS: TOPIRAMATE 25 MG TABLET (FP) PO SCH (10:44)
[2018-11-06] MEDS: POTASSIUM CHLORIDE TABS 20 MEQ TABLET.ER (FP) PO SCH (10:44)
[2018-11-06] MEDS: CEFTRIAXONE 1 GM in DEXTROSE 5%-WATER - 50 ML IVPB SCH (10:44)
--- NOTE | 2018-11-06 12:07 | PN ---
Progress Note (short form) - Note Progress Note: Patient seen and examined at bedside. no acute events overnight. Feeling well. denies fever, chills, cp, sob, n/v/d, urinary sxs. yesterday pt appealed dc, was not happy with [facility]. awaiting placement to different facility. GENERAL: AAOx3. NAD. Resting comfortably in bed. HEENT: AT/NC. EOMI. ZULLY. MMM NECK: Limited range of motion, supple without lymphadenopathy, JVD, or masses. LUNGS: CTAB HEART: RRR. Normal S1, S2. No murmurs noted. ABDOMEN: Soft, NT/ND. Hypoactive bowel sounds in all 4Qs. No visible masses noted. Vertical surgical scar noted in mid-abdomen. : Flores catheter in place draining clear yellow urine. MUSCULOSKELETAL: No CVA tenderness. No bony deformities. UPPER EXTREMITIES: 2+ radial pulses, warm, well-perfused. No cyanosis. No clubbing. L wrist swelling and bruising noted on dorsum of hand; pain upon wrist extension/flexion. 5/5 R sided shoulder and elbow flexion/extension. 5/5 R wrist flexion/extension. LOWER EXTREMITIES: 2+ dorsalis pedis pulses, warm, well-perfused. NEUROLOGICAL: Normal speech. Unable to assess gait. Follows commands. SKIN: Chronic b/l lower extremity hyperpigmentation, tender to palpation b/l with +swelling. ASSESSMENT/PLAN: 78F w/ pmhx of HLD, colon cx s/p partial colectomy, DVT (RLE on Eliquis), constipation, GERD presented to the ED s/p fall with complaints of generalized body pain. #S/p fall; likely mechanical fall given history -Hand/wrist, foot/ankle, knee, Head CT, RLE CT, hip/pelvis x-ray, and C-spine CT neg for acute pathology/fracture -Ortho: no need for surgical intervention at this time -Fall risk precautions -s/p PT eval -Orthostatic neg #UTI; resolved. completed tx w/ IV Ceftriaxone #Prophylaxis - home Eliquis dose #FEN -PO HYDRATION -replete prn -Sodium-controlled diet dispo -full code -yesterday pt appealed dc, was not happy with [facility]. awaiting placement to different facility.
--- NOTE | 2018-11-06 13:20 | PN ---
Teaching Attending Note Name of Resident: Jj Oviedo ATTENDING PHYSICIAN STATEMENT I saw and evaluated the patient. I reviewed the resident's note and discussed the case with the resident. I agree with the resident's findings and plan as documented. SUBJECTIVE:asymptomatic. denies Cp, SOB, fever, chills OBJECTIVE: Last Vital Signs Temp Pulse Resp BP Pulse Ox 97.8 F 86 20 150/78 98 11/06/18 06:00 11/06/18 06:00 11/06/18 06:00 11/06/18 06:00 11/05/18 21:00 General NAD ASSESSMENT AND PLAN: 78 year old female with HLD, Colon Cancer s/p partial Colectomy, DVT RLE on Eliquis, GERD, presented with generalized pain and weakness s/p mechanical fall despite assistance with ambulation by home service demonstrator. No preceding CP/palps. No head injury or loss of consciousness. Orthostatic vitals neg. 1. Ambulatory dysfunction- s/p mechanical fall. CT showing enlarged ventricles. as per neuro no signs of NPH. would benefit from ELEUTERIO. 2. UTI klebsiella- on ceftriaxone day 4. can d/c abx after todays dose. 3. Dyslipidemia- Statin. 4. Hx of RLE DVT - on Eliquis. 5. GERD - Continue PPI 6. On Topiramate - reason unclear - still no clarification from family re: reason for topiramate. Patient does not know. 7. Left Wrist swelling/ecchymoses sec to trauma - evaluatd by Ortho - no fracture appreciated, cleared for weight-bearing at wrist. 8. DVT PX - on Eliquis. 9. was discharged yesterday however patient appealed due to not preferred facility. informed patient that she can always be transferred to preferred facility. will d/w sw and f/u IPRO decision. pt remains medically cleared for surgery
[2018-11-07] MEDS: DOCUSATE SODIUM 100 MG CAPSULE (FP) PO SCH ×3 (05:45→14:12)
--- NOTE | 2018-11-07 09:22 | PN ---
Progress Note (short form) - Note Progress Note: Neurology HISTORY OF PRESENT ILLNESS: 78F w/ pmhx of HLD, colon cx s/p partial colectomy, DVT (RLE on Eliquis), constipation, GERD presents to the ED s/p fall with complaints of generalized body pain on day of admission. Pt stated that on morning of admission she was doing her usual routine in which she was getting out of bed with the help of her aide and walking to the bathroom with the use of her rolling walker. Once the patient got to the bathroom with the help of her aide supporting her from behind, the pt noticed that the toilet seat was disconnected from the toilet, so the aide left the pt's side to fix it, but soon afterwards, the pt took a step back and fell on the floor. She denied hitting her head or losing consciousness, but she did admit to hitting her whole body on the floor and also landing on her L wrist. Pt stated there was a "step up" on the floor that she might have tripped over when she took a step back. At the time, she denied fever/chills, headaches, dizziness, nausea, vomiting, chest pain, palpitations, cough, or difficulty breathing. She reported she usually gets short of breath when walking a few steps around her house, but this is not new from her baseline. Upon exam, she admitted to b/l leg pain that has been chronic, but has since worsened after the fall. She denied constipation/diarrhea. CT Head, C spine reviewed and without acute changes. Spoke with hospitalist about CT head. Moderate atrophy with dilation of ventricles consistent with atrophy. Does not seem to be 2/2 NPH at this time. Patient not ambulating and fall risk. Being planned for placement. Treated for UTI. Neurologically without acute events overnight. Planned for d/c. Patient denies new symptoms or recurrence of events. Mentioned lower leg discomfort, may benefit from increased ambulation, as tolerated. Allergies Allergy/AdvReac Type Severity Reaction Status Date / Time omeprazole magnesium AdvReac Intermediate Rash Verified 11/02/18 00:48 [From Prilosec] zinc AdvReac Unknown Rash Verified 11/02/18 00:48 Active Medications Acetaminophen (Tylenol -) 650 mg PO Q4H PRN PRN Reason: PAIN LEVEL 6-10 Last Admin: 11/05/18 11:33 Dose: 650 mg Apixaban (Eliquis -) 5 mg PO BID [facility] Last Admin: 11/06/18 22:25 Dose: 5 mg Docusate Sodium (Colace -) 100 mg PO TID [facility] Last Admin: 11/07/18 05:45 Dose: Not Given Multivitamins/Minerals (Theragran-M) 1 each PO DAILY [facility] Last Admin: 11/06/18 10:44 Dose: 1 each Pantoprazole Sodium (Protonix -) 40 mg PO DAILY [facility] Last Admin: 11/06/18 10:44 Dose: 40 mg Potassium Chloride (K-Dur -) 20 meq PO DAILY [facility] Last Admin: 11/06/18 10:44 Dose: 20 meq Senna (Senna -) 1 tab PO BID [facility] Last Admin: 11/06/18 22:28 Dose: Not Given Topiramate (Topamax -) 25 mg PO DAILY [facility] Last Admin: 11/06/18 10:44 Dose: 25 mg PHYSICAL EXAMINATION Vital Signs Period Temp Pulse Resp BP Sys/Douglas Pulse Ox Last 24 Hr 97.6 F-98.8 F 82-95 18-20 115-120/61-80 98 GENERAL: AAOx3. NAD. Resting comfortably in bed. HEENT: AT/NC. EOMI. ZULLY. Dry mucus membranes. NECK: Limited range of motion, supple without lymphadenopathy, JVD, or masses. LUNGS: CTA B/L. No wheezes, rhonchi noted. HEART: RRR. Normal S1, S2. No murmurs noted. ABDOMEN: Soft, NT/ND. Hypoactive bowel sounds in all 4Qs. No visible masses noted. Vertical surgical scar noted in mid-abdomen. : Flores catheter in place draining clear yellow urine. MUSCULOSKELETAL: No CVA tenderness. No bony deformities. UPPER EXTREMITIES: 2+ radial pulses, warm, well-perfused. No cyanosis. No clubbing. L wrist swelling and bruising noted on dorsum of hand; pain upon wrist extension/flexion. 5/5 R sided shoulder and elbow flexion/extension. 5/5 R wrist flexion/extension. LOWER EXTREMITIES: 2+ dorsalis pedis pulses, warm, well-perfused. NEUROLOGICAL: Normal speech. Not raising LE to command, sensory diminished to PP distally, gait deferred SKIN: Chronic b/l lower extremity hyperpigmentation, tender to palpation b/l with +swelling. CBCD WBC 9.9 K/mm3 (4.0-10.0) 11/05/18 07:00 RBC 3.29 M/mm3 (3.60-5.2) L 11/05/18 07:00 Hgb 9.8 GM/dL (10.7-15.3) L 11/05/18 07:00 Hct 28.6 % (32.4-45.2) L 11/05/18 07:00 MCV 86.8 fl (80-96) 11/05/18 07:00 MCHC 34.2 g/dl (32.0-36.0) 11/05/18 07:00 RDW 14.6 % (11.6-15.6) 11/05/18 07:00 Plt Count 195 K/MM3 (134-434) 11/05/18 07:00 MPV 9.7 fl (7.5-11.1) 11/05/18 07:00 CMP Sodium 142 mmol/L (136-145) 11/04/18 07:45 Potassium 4.1 mmol/L (3.5-5.1) 11/04/18 07:45 Chloride 110 mmol/L (98-107) H 11/04/18 07:45 Carbon Dioxide 26 mmol/L (21-32) 11/04/18 07:45 Anion Gap 5 MMOL/L (8-16) L 11/04/18 07:45 BUN 16 mg/dL (7-18) 11/04/18 07:45 Creatinine 0.8 mg/dL (0.55-1.3) 11/04/18 07:45 Creat Clearance w eGFR > 60 (>60) 11/04/18 07:45 Random Glucose 75 mg/dL (74-106) 11/04/18 07:45 Calcium 8.4 mg/dL (8.5-10.1) L 11/04/18 07:45 Total Bilirubin 0.5 mg/dL (0.2-1) 11/04/18 07:45 AST 15 U/L (15-37) 11/04/18 07:45 ALT 14 U/L (13-61) 11/04/18 07:45 Alkaline Phosphatase 58 U/L (45-117) 11/04/18 07:45 Total Protein 5.2 g/dl (6.4-8.2) L 11/04/18 07:45 Albumin 2.3 g/dl (3.4-5.0) L 11/04/18 07:45 CARDIAC ENZYMES Creatine Kinase 103 U/L (26-192) 11/03/18 06:40 Diagnostics * Head CT: completed * RLE CT: completed * C-Spine CT: completed * Hand/wrist x-ray: completed * foot/ankle x-ray: completed * knee x-ray: completed * hip/pelvis x-ray: completed ASSESSMENT/PLAN: 78F w/ pmhx of HLD, colon cx s/p partial colectomy, DVT (RLE on Eliquis), constipation, GERD presents to the ED s/p fall with complaints of generalized body pain on day of admission. Pt stated that on morning of admission she was doing her usual routine in which she was getting out of bed with the help of her aide and walking to the bathroom with the use of her rolling walker. Once the patient got to the bathroom with the help of her aide supporting her from behind, the pt noticed that the toilet seat was disconnected from the toilet, so the aide left the pt's side to fix it, but soon afterwards, the pt took a step back and fell on the floor. She denied hitting her head or losing consciousness, but she did admit to hitting her whole body on the floor and also landing on her L wrist. Pt stated there was a "step up" on the floor that she might have tripped over when she took a step back. At the time, she denied fever/chills, headaches, dizziness, nausea, vomiting, chest pain, palpitations, cough, or difficulty breathing. She reported she usually gets short of breath when walking a few steps around her house, but this is not new from her baseline. Upon exam, she admitted to b/l leg pain that has been chronic, but has since worsened after the fall. She denied constipation/diarrhea. CT Head, C spine reviewed and without acute changes. Spoke with hospitalist about CT head. Moderate atrophy with dilation of ventricles consistent with atrophy. Does not seem to be 2/2 NPH at this time. Monitor blood pressure, maintain normotensive range. Patient not ambulating and fall risk. Patient not ambulating and fall risk. Being planned for placement. Treated for UTI. Neurologically without acute events overnight. Planned for d/c. Patient denies new symptoms or recurrence of events. Neurologically stable at this time. Fall precautions recommended.
[2018-11-07] MEDS: SENNOSIDES 8.6MG TABLET (FP) PO SCH (09:25)
[2018-11-07] MEDS: ACETAMINOPHEN 325 MG TABLET (FP) PO PRN ×2 (09:25→19:39)
[2018-11-07] MEDS: TOPIRAMATE 25 MG TABLET (FP) PO SCH (09:25)
[2018-11-07] MEDS: PANTOPRAZOLE 40 MG TABLET (FP) PO SCH (09:25)
[2018-11-07] MEDS: APIXABAN 5 MG TABLET PO SCH (09:25)
[2018-11-07] MEDS: POTASSIUM CHLORIDE TABS 20 MEQ TABLET.ER (FP) PO SCH (09:25)
[2018-11-07] MEDS: MULTIVITAMINS THER W-MINERALS COMBO TABLET (FP) PO SCH (09:25)
--- NOTE | 2018-11-07 10:59 | PN ---
Teaching Attending Note Name of Resident: Jj Oviedo ATTENDING PHYSICIAN STATEMENT I saw and evaluated the patient. I reviewed the resident's note and discussed the case with the resident. I agree with the resident's findings and plan as documented. SUBJECTIVE:asymptoamtic. denies CP, SOB, fever, chills, N/V/C/D OBJECTIVE: Last Vital Signs Temp Pulse Resp BP Pulse Ox 98.4 F 94 H 18 117/61 98 11/07/18 09:17 11/07/18 09:17 11/07/18 09:17 11/07/18 09:17 11/06/18 21:00 General NAD ASSESSMENT AND PLAN: 78 year old female with HLD, Colon Cancer s/p partial Colectomy, DVT RLE on Eliquis, GERD, presented with generalized pain and weakness s/p mechanical fall despite assistance with ambulation by in home sales consultant. No preceding CP/palps. No head injury or loss of consciousness. Orthostatic vitals neg. 1. Ambulatory dysfunction- s/p mechanical fall. CT showing enlarged ventricles. as per neuro no signs of NPH. would benefit from ELEUTERIO. 2. UTI klebsiella- completed abx course. 3. Dyslipidemia- Statin. 4. Hx of RLE DVT - on Eliquis. 5. GERD - Continue PPI 6. On Topiramate - reason unclear - still no clarification from family re: reason for topiramate. Patient does not know. 7. Left Wrist swelling/ecchymoses sec to trauma - evaluatd by Ortho - no fracture appreciated, cleared for weight-bearing at wrist. 8. DVT PX - on Eliquis. 9. was d/c on 11/05 and appealed because wasnt accepted at [facility]. Awaiting [facility] decision
--- NOTE | 2018-11-07 11:00 | PN ---
Progress Note (short form) - Note Progress Note: Patient seen and examined at bedside. no acute events overnight. Feeling well. denies fever, chills, cp, sob, n/v/d, urinary sxs. pt awaiting placement to CT. GENERAL: AAOx3. NAD. Resting comfortably in bed. HEENT: AT/NC. EOMI. ZULLY. MMM NECK: Limited range of motion, supple without lymphadenopathy, JVD, or masses. LUNGS: CTAB HEART: RRR. Normal S1, S2. No murmurs noted. ABDOMEN: Soft, NT/ND. Hypoactive bowel sounds in all 4Qs. No visible masses noted. Vertical surgical scar noted in mid-abdomen. : Flores catheter in place draining clear yellow urine. MUSCULOSKELETAL: No CVA tenderness. No bony deformities. UPPER EXTREMITIES: 2+ radial pulses, warm, well-perfused. No cyanosis. No clubbing. L wrist swelling and bruising noted on dorsum of hand; pain upon wrist extension/flexion. 5/5 R sided shoulder and elbow flexion/extension. 5/5 R wrist flexion/extension. LOWER EXTREMITIES: 2+ dorsalis pedis pulses, warm, well-perfused. NEUROLOGICAL: Normal speech. Unable to assess gait. Follows commands. SKIN: Chronic b/l lower extremity hyperpigmentation, tender to palpation b/l with +swelling. ASSESSMENT/PLAN: 78F w/ pmhx of HLD, colon cx s/p partial colectomy, DVT (RLE on Eliquis), constipation, GERD presented to the ED s/p fall with complaints of generalized body pain. #S/p fall; likely mechanical fall given history -Hand/wrist, foot/ankle, knee, Head CT, RLE CT, hip/pelvis x-ray, and C-spine CT neg for acute pathology/fracture -Ortho: no need for surgical intervention at this time -Fall risk precautions -s/p PT eval -Orthostatic neg #UTI; resolved. completed tx w/ IV Ceftriaxone #Prophylaxis - home Eliquis dose #FEN -PO HYDRATION -replete prn -Sodium-controlled diet dispo -full code -pt appealed dc on 11/05/18 because wasn't accepted at [facility] facility. Awaiting [facility] decision
[2018-11-07 19:48] VITALS: BP 120/70; PULSE 80; TEMP 98.6
== END 2018-11-07 20:31 | DRG 690 ==
LOC: JER 16:54 → JERBED 11-02 00:25 → J6S 11-02 17:07
PROVIDERS: ADMIT Internal Medicine; ATTEND Internal Medicine
DX: N39.0 Urinary tract infection, site not specified (principal); E46 Unspecified protein-calorie malnutrition; R71.0 Precipitous drop in hematocrit; S60.212A Contusion of left wrist, initial encounter; E78.5 Hyperlipidemia, unspecified; K21.9 Gastro-esophageal reflux disease without esophagitis; B96.1 Klebsiella pneumoniae [K. pneumoniae] as the cause of diseases classified elsewhere; W19.XXXA Unspecified fall, initial encounter; Y93.9 Activity, unspecified; Y92.89 Other specified places as the place of occurrence of the external cause; Y99.9 Unspecified external cause status; E88.09 Other disorders of plasma-protein metabolism, not elsewhere classified; D72.829 Elevated white blood cell count, unspecified; Z68.25 Body mass index [BMI] 25.0-25.9, adult
CPT/HCPCS: 36415; 70450-TC; 71045-TC-FY; 72125-TC; 73110-TC-LT-FY; 73130-TC-LT-FY; 73523-TC-FY; 73560-TC-LT-FY; 73560-TC-RT-FY; 73610-TC-LT-FY; 73610-TC-RT-FY; 73630-TC-LT; 73630-TC-RT-FY; 73700-TC-RT; 80053; 81003; 81015; 82550; 83605; 83735; 84100; 85025; 85027; 85610; 85730; 86850; 86900; 86901; 87086; 87186; 93005; 93010; 97116-GP; 97162-GP; 99285-25; J0131; J7030